=== PATIENT | male | born 1940 | race Caucasian/White ===

== ENCOUNTER → 2023-12-07 13:38 | Outpatient (REF) | payer MEDICARE, SELFPAY | LOC: RAD 13:38 | PROVIDERS: ATTENDING PHYSICIAN Internal Medicine | DX: M54.2 Cervicalgia (principal) | CPT/HCPCS: 72050 ==

== ENCOUNTER 2024-02-08 07:26 | Emergency (ER) | payer MEDICARE, SELFPAY ==
[2024-02-08 07:30] VITALS: BP 127/64
[2024-02-08 07:40] VITALS: BMI 21.8
[2024-02-08 07:42] VITALS: BP 124/64
[2024-02-08 08:00] VITALS: BP 103/51
[2024-02-08 08:15] LABS: ALT (SGPT) 24 U/L (0-50); AST (SGOT) 30 U/L (17-59); Albumin 3.8 g/dl (3.5-5.0); Alkaline Phosphatase 100 U/L (38-126); Blood Urea Nitrogen 30 mg/dl (9-20); Calcium 9.3 mg/dl (8.4-10.2); Carbon Dioxide 27 mmol/L (22-30); Chloride 103 mmol/L (98-107); Estimated Creatinine Clearance 64 ml/min; Glucose 150 mg/dl (70-99); Potassium 4.6 mmol/L (3.5-5.1); Sodium 138 mmol/L (135-145); Total Bilirubin 0.6 mg/dl (0.2-1.3); Total Protein 6.4 g/dl (6.3-8.2); eGFR > 60.00
--- NOTE | 2024-02-08 08:15 | ED.GENMED ---
History of Present Illness
General
Chief Complaint: Fainting/Passed Out
Source: patient
Exam Limitations: none
Time Seen by Provider: 02/08/24 08:07
History of Present Illness
History of Present Illness:
See MDM
Past History
Past History
ED Past Medical History: CAD, Hypercholesterolemia, NIDDM and Other
ED Past Surgical History: Cardiac
Social History
Personal:
Living: with family
Phy Exam
Physical Exam
Physical Exam:
See MDM
Course
Orders/Labs/Results
Orders:
Orders
02/08/24 07:29
EKG [Electrocardiogram (*1)] Urgent
Reason for Study: Syncope
02/08/24 07:30
EKG- Treatment ONCE
02/08/24 07:47
Urinalysis Reflex To Culture Urgent
Date Specimen was Collected: 02/08/24
Time Specimen was Collected: 07:47
02/08/24 07:50
Complete Blood Count/With Diff Urgent
Comprehensive Metabolic Panel Urgent
Troponin I Urgent
Abnormal Lab Results
02/08/24
07:50
RBC 4.58 L 10^6/uL
(4.70-6.10)
MCHC 32.7 L g/dL
(33.0-37.0)
MPV 10.9 H fL
(7.4-10.4)
Absolute Monos (auto) 0.7 H 10^3/uL
(0.1-0.6)
BUN 30 H mg/dl
(9-20)
Glucose 150 H mg/dl
(70-99)
02/08/24 07:50
02/08/24 07:50
Vital Signs
Initial and Last Documented VS:
Initial Vital Signs
BP
127/64
02/08/24 07:30
Last Documented Vital Signs
Temp Pulse Resp BP Pulse Ox
97.7 F 64 15 97/47 93
02/08/24 07:42 02/08/24 09:15 02/08/24 09:15 02/08/24 09:00 02/08/24 09:15
MDM/Problems Addressed
Differential Diagnosis Includes:
HPI and MDM Narrative:
83-year-old male presenting for syncopal event. Patient was sitting on his porch bench and he started to feel weak and tired and seem like he fell asleep. This was witnessed by his . She states he was unconscious for approximately 45 seconds.
There is no shaking episodes or loss of bowel or bladder control. When he woke up, patient states he felt a little shaky but is feeling back to his normal self. Patient is more concerned about being discharged and getting a couple coffee. He
currently denies any chest pain or shortness of breath or palpitations. I had a long discussion that syncope at rest could be cardiac in nature, specifically abnormal heart rhythm or possibly pauses. Patient understands my concern. at
bedside also understands my concern. They are comfortable with discharge with a negative workup going this could be the diagnostic possibility. The indicated that they will follow-up with PCP and cardiology to discuss holter
Physical exam
General: Well appearing and non-toxic. Sitting in bed comfortably
HEENT: protecting airway
Neck: appears supple
CV: No evidence of cyanosis. Regular rate and rhythm
Resp: No accessory muscle use
Abd: Non-distended
Extremities: No deformities. No leg edema
Neuro: alert
Psych: Normal affect
Skin: Intact
Problems Addressed including Acute and Chronic Conditions affecting care:
1. Syncope
Acuity: acute
Prognosis: stable
Details: Given that this occurred at rest, there is a strong concern for cardiogenic syncope. Will continue to monitor heart rhythm on telemetry and will obtain basic blood work
Updates
Throughout his stay in the emergency department, patient remains symptom-free. There was an episode of bigeminy but this does not correlate any symptoms. Case discussed with his veterinary assistant who will expedite follow-up and Holter monitor. Patient
feels comfortable going home
Differential Diagnosis (but not limited to): Cardiac arrhythmia, vasovagal syncope
Testing considered: CT head
Drug therapy (if applicable): OTC meds, please see d/c instruction regarding Rx drugs
Amount and/or Complexity of Data Reviewed
Clinical info obtained from: Patient
External data reviewed: N/A
Labs I independently reviewed (but not limited to): Troponin negative
Radiology: N/A
Pulse Ox: not hypoxic
EKG independently reviewed: Sinus rhythm, normal axis, no STEMI
Magnet Placer: Sinus rhythm
Critical Care: N/A
Risk of Complication:
Social Determinants of health: Good social support
Discussed with other providers: Cardiology
Escalation of Care includes Admit/Obs: After being observed in the Emergency Department, pt stable for discharge.
Occasional wrong word or 'sound a like' substitutions may have occurred due to the inherent limitations of voice recognition software. Read the chart carefully and recognize, using context, where substitutions have occurred.
*Critical Care Note
Total Time (30-74mins, 75-104mins- exclusive of procedures): Not Applicable
ED Attending Note
-
Portions of this chart may have been created with voice recognition software.� Occasional wrong word or��sound alike� substitutions may have occurred due to the inherent limitations of voice recognition software.
Discharge Plan
Departure
Patient Disposition: Home (Routine Discharge)
Date of Disposition: 02/08/24
Time of Disposition: 09:31
Patient with high blood pressure during this ER visit?: No
Discharge Problem:
Syncope
Prescriptions:
No Action
glimepiride 4 MG tablet
8 mg PO DAILY
aspirin 81 MG tablet,delayed release (DR/EC)
81 mg PO DAILY
Farxiga 10 MG tablet
10 mg PO DAILY
atorvastatin 40 MG tablet
40 mg PO QPM
Refresh Classic (PF) 10 DROPS dropperette
2 drp BOTH EYES HS
repaglinide 1 mg Tablet
1 mg PO QPM
Patient Comments:
~50% adherence according to
Rx Instructions:
To be taken before dinner
clopidogrel [Plavix] 75 mg Tablet
75 mg PO DAILY
metoprolol succinate 25 mg Tablet Extended Release 24 Hr
12.5 mg PO HS
metformin 500 mg tablet
1,000 mg PO BID
verapamil 120 mg tablet extended release
120 mg PO QPM
Referrals:
Adrian Keen MD [Family Provider] -
Activity Restrictions/Additional Instructions:
Please return for any worsening symptoms.
You may return at any time if you have further concerns.
Please follow up with your veterinary assistant. They know you are here today and stated that they will expedite follow-up and Holter monitor. If you do not hear from them in the next few days, please give them a call.
Thank you for choosing [facility].
Interventions
Interventions:
*Risk Screen - Suicide Last Done: 02/08/24 07:31
*General Assessment Last Done: 02/08/24 07:31
*Neglect/Abuse Screening Last Done: 02/08/24 07:31
ED- Cardiac Assessment Last Done: 02/08/24 07:40
ED- Neurological Assessment Last Done: 02/08/24 07:40
Discharge Date and Time
Print Language: THAI
[2024-02-08 08:17] LABS: % Basophils 0.6 % (0-2); % Eosinophils 2.8 % (0-6); % Immature Granulocytes 0.4 % (0-0.5); % Lymphocytes 31.2 % (20.5-51.1); % Monocytes 8.1 % (1.7-9.3); % Neutrophils 56.9 % (42.2-75.2); Absolute Basophils 0.1 10^3/uL (0-0.2); Absolute Eosinophils 0.2 10^3/uL (0-0.7); Absolute Lymphocytes 2.6 10^3/uL (1.2-3.4); Absolute Monocytes 0.7 10^3/uL (0.1-0.6); Absolute Neutrophils 4.7 10^3/uL (1.4-6.5); Hematocrit 42.2 % (39.0-52.0); Hemoglobin 13.8 g/dL (13.0-18.0); Mean Corp Hgb Conc. 32.7 g/dL (33.0-37.0); Mean Corpuscular Hgb 30.1 pg (27.0-31.0); Mean Corpuscular Volume 92.1 fL (80.0-94.0); Mean Platelet Volume 10.9 fL (7.4-10.4); Nucleated Red Blood Cells % 0 % (-); Platelet Count 230 10^3/uL (130-400); Red Blood Cell Count 4.58 10^6/uL (4.70-6.10); Red Cell Dist. Width 13.5 % (11.5-14.5); White Blood Cell Count 8.3 10^3/uL (4.8-10.8)
[2024-02-08 08:26] LABS: Troponin I < 0.012 ng/ml
[2024-02-08 09:00] VITALS: BP 97/47
[2024-02-08 09:32] VITALS: BP 102/57
== END 2024-02-08 09:40 | disposition home or self-care (01) ==
LOC: EMR 07:26
PROVIDERS: Emergency Medicine; EMERGENCY PHYSICIAN Student in an Organized Health Care Education/Training Program; FAMILY PHYSICIAN Internal Medicine
DX: R55 Syncope and collapse (principal); I25.10 Atherosclerotic heart disease of native coronary artery without angina pectoris; E78.00 Pure hypercholesterolemia, unspecified; E11.9 Type 2 diabetes mellitus without complications
CPT/HCPCS: 99283; 80053; 84484; 85025; 93005

== ENCOUNTER → 2024-02-23 13:36 | Outpatient (REF) | payer MEDICARE, SELFPAY | LOC: HWRCS 13:36 | PROVIDERS: ATTENDING PHYSICIAN Internal Medicine; FAMILY PHYSICIAN Internal Medicine | DX: I25.10 Atherosclerotic heart disease of native coronary artery without angina pectoris (principal); I34.0 Nonrheumatic mitral (valve) insufficiency; I49.3 Ventricular premature depolarization; R55 Syncope and collapse | CPT/HCPCS: 93306 ==

== ENCOUNTER → 2024-03-14 12:33 | Outpatient (REF) | payer MEDICARE, SELFPAY ==
[2024-03-14 13:13] LABS: % Basophils 0.6 % (0-2); % Eosinophils 1.6 % (0-6); % Immature Granulocytes 0.4 % (0-0.5); % Lymphocytes 32.9 % (20.5-51.1); % Monocytes 8.6 % (1.7-9.3); % Neutrophils 55.9 % (42.2-75.2); Absolute Basophils 0.1 10^3/uL (0-0.2); Absolute Eosinophils 0.1 10^3/uL (0-0.7); Absolute Lymphocytes 2.6 10^3/uL (1.2-3.4); Absolute Monocytes 0.7 10^3/uL (0.1-0.6); Absolute Neutrophils 4.5 10^3/uL (1.4-6.5); Hematocrit 42.4 % (39.0-52.0); Hemoglobin 13.9 g/dL (13.0-18.0); Mean Corp Hgb Conc. 32.8 g/dL (33.0-37.0); Mean Corpuscular Volume 91.6 fL (80.0-94.0); Mean Platelet Volume 10.8 fL (7.4-10.4); Nucleated Red Blood Cells % 0 % (-); Platelet Count 239 10^3/uL (130-400); Red Blood Cell Count 4.63 10^6/uL (4.70-6.10); Red Cell Dist. Width 14.6 % (11.5-14.5)
[2024-03-14 13:44] LABS: ALT (SGPT) 25 U/L (0-50); AST (SGOT) 35 U/L (17-59); Albumin 3.8 g/dl (3.5-5.0); Alkaline Phosphatase 83 U/L (38-126); Blood Urea Nitrogen 29 mg/dl (9-20); Calcium 9.7 mg/dl (8.4-10.2); Carbon Dioxide 28 mmol/L (22-30); Chloride 96 mmol/L (98-107); Glucose 146 mg/dl (70-99); Potassium 5.2 mmol/L (3.5-5.1); Sodium 135 mmol/L (135-145); Total Bilirubin 0.6 mg/dl (0.2-1.3); Total Protein 6.3 g/dl (6.3-8.2); eGFR > 60.00
== END ==
LOC: SDSPAT 12:33
PROVIDERS: ATTENDING PHYSICIAN Internal Medicine Cardiovascular Disease; FAMILY PHYSICIAN Internal Medicine; OTHER PHYSICIAN Internal Medicine
DX: Z01.818 Encounter for other preprocedural examination (principal); I42.9 Cardiomyopathy, unspecified
CPT/HCPCS: 36415; 80053; 85025; 93005

== ENCOUNTER → 2024-03-16 06:25 | Day surgery (SDC) | payer MEDICARE, SELFPAY ==
[2024-03-16] VITALS (15 sets, daily range): BP systolic 89–134; BP diastolic 53–87; BMI 21.7
[2024-03-16 07:07] LABS: Glucose - Point of Care 132 mg/dl (70-99)
[2024-03-16] MEDS: NSS 218 ML IV (07:25)
--- NOTE | 2024-03-16 09:23 | ITS.CL.CATH ---
[facility] - Catheterization
Cardiac Catheterization
Procedure Report:
CARDIAC CATHETERIZATION REPORT
Date of Procedure: 03/16/2024
Referring: Nahun Templeton M.D., Ph.D.
Indication: New cardiomyopathy, unexplained syncope.
PROCEDURE:
1. Right heart catheterization.
2. Left heart catheterization.
3. Coronary angiography.
4. Bypass graft angiography.
ACCESS:
6 [place] left radial artery.
5 [place] right antecubital vein.
CATHETERS:
1. 5 [place] balloon wedge.
2. 5 [place] ANGELES.
3. 5 [place] JL 4.
4. 5 [place] JR4.
5. 5 [place] AL-1.
HEMODYNAMIC DATA
Weight (kg): 72.6
AO (s/d/x mmHg): 106/48/68
LV (s/x mmHg): 109/16 (A wave to 30 mmHg)
PCWP (a/v/x mmHg):
PA (s/d/x mmHg): 41/18/25
RV (s/x mmHg):
RA (a/v/x mmHg): 9
SVC SvO2 (%): 59.3
PA SvO2 (%): 63.8
SaO2 (%): 92.2
Hbg (g/dL): 13.3
CO (L/min): 3.59
CI (L/min/m2): 1.85
TPG (mmHg): 9
PVR (Huang Units): 2.51
SVR (dynes*seconds*cm^-5): 1404
AVO2 Diff (Volume %): 5.14
AV gradient (x, mmHg): None.
AV area (cm2): Normal
LEFT VENTRICULOGRAPHY: Not performed.
CORONARY ANGIOGRAPHY
Dominance: Right.
Left Main: Short, bifurcating vessel. There is left main stenosis that is difficult to discretely identified but catheter dampening with engagement.
LAD: Normal size vessel giving rise to a large diagonal which runs parallel to the true vessel. The mid and distal LAD is a small, diffusely diseased vessel. There is a 90% lesion in the proximal vessel, followed by a 70% lesion in the mid
vessel, proximal to the diagonal. The second diagonal is supplied via a patent FERNÁNDEZ graft.
Ramus: Congenitally absent.
Circumflex: Normal size, nondominant vessel giving rise to 2 obtuse marginals. There is an 80% lesion in the proximal margin of OM1. OM 2 is occluded at its origin but is supplied by collaterals from the second diagonal.
RCA: Normal size, dominant vessel. The RCA is chronically totally occluded in its midportion, immediately after the origin of a large RV marginal branch. The right posterolateral branch and RPDA are supplied by collaterals from the RV marginal
branch which backfills to the level of the crux.
BYPASS GRAFT ANGIOGRAPHY
FERNÁNDEZ to large D2: Normal size graft with end-to-side anastomosis to the large second diagonal supplying the majority of the anterior and anterolateral wall. There is no evidence of stenosis or graft degeneration.
SVG to OM 2: Normal size graft with end-to-side anastomosis to a diffusely diseased second obtuse marginal. There is some graft degeneration in the proximal and midportion somewhat responsive to nitroglycerin. The terminal port gamble artery is
diffusely diseased with essentially trivial outflow.
INTERVENTIONS
None.
Closure Device: Vascular band for the left radial artery, manual pressure for the right antecubital vein.
Radiation dose (mGy): 654.69
DAP (cm2.Gy): 55.3036
Fluoroscopy time (minutes): 6.5
Sedation time (minutes): 22
CONCLUSIONS:
1. Right dominant circulation with left main coronary artery stenosis, 90% lesion in the proximal LAD, 70% lesion in the mid LAD, diffusely diseased mid and distal LAD with a large, parallel second diagonal, and 80% lesion in OM1, flush occluded OM
2 supplied by collaterals from the diagonal and a chronic total occlusion of the mid RCA with right to right collaterals from a large RV marginal status post prior coronary artery bypass grafting (patent FERNNÁDEZ to large D2, patent SVG to diffusely
diseased OM 2 branches with mild graft degeneration of the proximal and midportion somewhat responsive to nitroglycerin).
2. Mildly elevated filling pressures (PCWP = 16 mmHg, LVEDP = 16 mmHg at 72.6 kg) with evidence of diastolic dysfunction (A wave to 30 mmHg), likely appropriate given degree of LV dysfunction.
3. Severe left ventricular dysfunction on echocardiography, LVEF = 20-25%.
RECOMMENDATIONS:
1. Expectant management after cardiac catheterization via left radial/right antecubital approach.
2. Limited weight bearing on the left for one week.
3. Titration of guideline directed medical therapy. Discontinue verapamil. Uptitrate metoprolol and start lisinopril 2.5 mg daily.
4. Aggressive secondary prevention with high-dose, high potency statin.
5. Consideration of primary/secondary preventative therapy with ICD (unclear if syncope was cardiogenic versus dehydration).
Copy to: Nahun Templeton M.D., Ph.D., Kushal Keen M.D.
Guevara Ramon DO, FACC, FACP
== END | disposition home or self-care (01) ==
LOC: CATH 06:25
PROVIDERS: ATTENDING PHYSICIAN Internal Medicine Cardiovascular Disease; FAMILY PHYSICIAN Internal Medicine; OTHER PHYSICIAN Internal Medicine
DX: I25.10 Atherosclerotic heart disease of native coronary artery without angina pectoris (principal); I42.9 Cardiomyopathy, unspecified; I10 Essential (primary) hypertension; E78.5 Hyperlipidemia, unspecified; E11.319 Type 2 diabetes mellitus with unspecified diabetic retinopathy without macular edema; J44.9 Chronic obstructive pulmonary disease, unspecified; K21.9 Gastro-esophageal reflux disease without esophagitis; Z95.1 Presence of aortocoronary bypass graft; Z86.73 Personal history of transient ischemic attack (TIA), and cerebral infarction without residual deficits; Z87.891 Personal history of nicotine dependence; Z79.82 Long term (current) use of aspirin; Z79.84 Long term (current) use of oral hypoglycemic drugs
CPT/HCPCS: C1894; 82962; 93461; Q9967

== ENCOUNTER 2024-03-22 07:55 | Day surgery (SDC) | payer MEDICARE, SELFPAY ==
[2024-03-22] VITALS (14 sets, daily range): BP systolic 92–115; BP diastolic 49–75; BMI 21.5
[2024-03-22 08:36] LABS: Glucose - Point of Care 136 mg/dl (70-99)
--- NOTE | 2024-03-22 09:14 | W.ICD.CONTRA ---
Post ICD/RACK CLEANER-D
-
History of [place]?: No
LV Function
Left ventricular function study result?: Ejection Fraction </= 35%
ACEI/ARB/ARNI
Patient already on ACEI/ARB/ARNI: Yes
Beta-Saji
Patient already on Beta Saji: Yes
[2024-03-22] MEDS: NSS 500 IV (09:32)
--- NOTE | 2024-03-22 12:37 | ITS.CL.ICD ---
Clinical Faculty - ICD
Implantable Cardioverter Defibrillator
Procedure Report:
Dual Chamber Implantable Cardioverter Defibrillator Placement:
Mr. Collier is an 83-year-old male with CAD, ischemic cardiomyopathy with NYHA calss III, NSVT, frequent PVC in bigeminy, HTN, DM, severe PVD, COPD, TIA, with LVEF of 20% and severe CAD nor amenable to intervention, on guideline directed
cardiomyopathy is recommended pacing to suppressed PVCs and bradycardia and is in need for an ICD for NSVT and severe systolic dysfunction.
Indications: sinus bradycardia with severe systolic dysfunction and ventricular tachycardia.
Date of the Procedure:
03/22/2024
Pre-Operative Diagnosis: sinus bradycardia with severe systolic dysfunction and ventricular tachycardia.
Post-Operative Diagnosis: sinus bradycardia with severe systolic dysfunction and ventricular tachycardia.
Procedure Performed: DUAL CHAMBER IMPLANTABLE CARDIOVERTER DEFIBRILLATOR IMPLANTATION
Performing Physician:
oJ Serrano MD
Anesthesia:
See anesthesia report
Detailed Description of the Procedure:
The patient was identified using hospital identification and informed consent obtained for the procedure. The risks were explained including, but not limited to: Bleeding, infection, arrhythmia, stroke, vascular/cardiac/lung puncture, surgery,
pacemaker dependency/device malfunction. All questions were answered.
The patient was brought to the electrophysiology laboratory in stable condition in fasting state. Continuous electrocardiographic and hemodynamic monitoring was initiated. The initial rhythm was sinus with PVCs.
The procedure site was meticulously prepared with surgical scrub and allowed to dry with no pooling. Sterile draping was applied to cover the procedure site. The image intensifier was draped with sterile bag and positioned over the patient.
The right infra-clavicular region was prepped and draped in the usual sterile fashion. Local anesthesia was administered subcutaneously using 1% lidocaine / Bupivacaine. The right cephalic vein cut-down was performed with an incision at the
delto-pectoral groove, and vascular sheaths were introduced for lead access. These were advanced into the right ventricle and the right atrium.
The right ventricular lead was secured in position with an active fixation technique at the apical septal location.
The RA lead was attached in the right atrial appendage with active fixation.
There was excellent sensing, pacing, and impedance from the leads, with no diaphragmatic stimulation at 10 V output.�Bovie cautery, antibiotics, and fluoroscopy were used.
The sheath was withdrawn, and the thresholds remained acceptable. The lead was secured in position at the venous entry site with 2-0 Ethibond. A pocket was fashioned contiguous to the incision. The electrode terminals were connected to the pulse
generator, which was placed into the pocket. The wound was irrigated thoroughly with antibiotic solution and closed in 3 layers using 2-0 VLoc sutures followed by 2 layers of 4-0 V-loc sutures. Steri-Strips and a bandage were applied externally.�
Procedure End:
The procedure was tolerated well. A bandage was applied to the incision area.
Estimated Blood loss:
5 cc
Fluoro time:
2.9min / 8.5 mGy
Specimens Removed:
No cultures and no specimens were obtained. No intraoperative pathology was identified.
Urine output:
None
Packs / Drains/ Tubes:
None
Instrument / Sponge Count Correct:
Yes
Complications of the Procedure:
None
Condition of Patient at Time of Transfer:
Hemodynamically stable with no neurological or vascular compromise.
Device information:�
Generator: [employer]; Model: [id number]; Serial # [id number]�
Atrial Lead: [employer]; Model: 5076-45; Serial # [id number]
Measured data in the right atrium was sensing of 2.2 mV, impedance of 560 ohms and threshold of 0.8 V at 0.4ms�
RV Lead: Medtronic; Model: 6935M-55; Serial # [id number]
Measured data in the RV lead was sensing of 8.0 mV, impedance of 520 ohms and threshold of 0.75 V at 0.4ms�
PROGRAMMING PARAMETERS:�
Homer parameter settings were AAIR <=>DDDR 60-130 bpm. �
����������� Mode switch: On
����������� Paced AV delay: 130 ms
����������� Sensed AV delay: 100 ms
����������� Rate Adaptive A-V Interval: Off
Output parameters:
����������������������� Amplitude (V)������������� Pulse Width (ms)������� Sensitivity (mV)
����������� RA: ����� 3.5 ����������������� ����������� 0.4������������������ ����������� 0.3
����������� RV:������ 3.5������������������ ����������� 0.4������������������ ����������� 0.3
Tachy parameter settings:
����������� SVT discrimination: On
����������� AF/AFl: On
����������� SVT limit: 260 msec
����������� VT zone:
����������������������� Slow VT: 150 - 188 bpm --> Monitor
����������������������� Fast VT/VF: > 188 bpm --> Shock x6 (ATP before and during)
�����������
Summary:
Successful implantation of MRI compatible dual chamber Medtronic implantable Cardioverter Defibrillator.�
Results/Recommendations:
-Please follow up CXR�
1. Please provide patient with adequate pain control�
Instructions to be given to patient:�
- Please follow up with [facility] at [address] [place] [address] ([phone]) to get your wound checked within 14 days of your discharge.
- Do not soak incision site until after it is evaluated at cardiology clinic. OK to showers followed by dab dry the area. No baths or swimming until then. Sponge baths are OK.�
- Allow 'steri strips' to fall off on their own�
- Do not lift right elbow above shoulder, particularly with sudden jerking movements, for 1 month�
- Do not lift anything weighing more than 5 pounds with the right arm for 1 month�
- If you notice any fevers, shortness of breath, lightheadedness, chest pain, or worsening swelling in the wound site, please contact the arrhythmia clinic, contact your lead web application developer, or present to the hospital for evaluation.�
Jo Serrano MD
Electrophysiology
[2024-03-22 13:19] LABS: Glucose - Point of Care 140 mg/dl (70-99)
--- NOTE | 2024-03-22 15:58 | PTCARENOTE ---
received patient from laborer adjustable steel joist, RCW Acuseal, immobilizer in place. right hand contracted, not new. monitor shows Apaced with PVC's, VSS. patient placed on BSC with assist x2 to void. oriented to room and surroundings. at bedside.
--- NOTE | 2024-03-22 16:24 | PTCARENOTE ---
when assessing patient, patient has right great toe skin grafting that he and his refused me to take off dressing. patient is under the care at [facility].
--- NOTE | 2024-03-22 17:16 | PTCARENOTE ---
patient voided 100cc of yellow urine on BSC, patient refuses to get bladder scanned.
[2024-03-22] MEDS: ZESTRIL 2.5 MG PO (17:51)
[2024-03-22] MEDS: PRANDIN 2 MG PO (17:53)
[2024-03-22] MEDS: GLUCOPHAGE 1000 MG PO (17:54)
[2024-03-22] MEDS: FLUSH (NSS) 1 FLUSH IV (17:54)
[2024-03-22] MEDS: CRESTOR 40 MG PO (17:54)
[2024-03-22] MEDS: ANCEF 5 IV (17:55)
--- NOTE | 2024-03-22 20:34 | PTCARENOTE ---
Pt. seen and assessed in room. Pt. AOx3, VS WNL. Tele reading A Pacing with occasional PVCs. ICD at R chest wall. Dressing c/d/i. No complaints of pain at this time. Continuing to monitor the pt at this time.
[2024-03-22] MEDS: TOPROL XL 50 MG PO (21:05)
[2024-03-22 22:46] LABS: Glucose - Point of Care 193 mg/dl (70-99)
[2024-03-22] MEDS: TYLENOL 650 MG PO (22:46)
[2024-03-23 01:06] VITALS: BP 104/59
[2024-03-23] MEDS: ANCEF 5 IV (01:07)
[2024-03-23 04:38] VITALS: BP 96/68
[2024-03-23 04:59] VITALS: BMI 21.4
[2024-03-23 05:00] LABS: Hematocrit 41.3 % (39.0-52.0); Hemoglobin 14.1 g/dL (13.0-18.0); Mean Corp Hgb Conc. 34.1 g/dL (33.0-37.0); Mean Corpuscular Hgb 31.3 pg (27.0-31.0); Mean Corpuscular Volume 91.6 fL (80.0-94.0); Mean Platelet Volume 10.7 fL (7.4-10.4); Platelet Count 205 10^3/uL (130-400); Red Blood Cell Count 4.51 10^6/uL (4.70-6.10); Red Cell Dist. Width 14.3 % (11.5-14.5); White Blood Cell Count 11.2 10^3/uL (4.8-10.8)
[2024-03-23 05:32] LABS: Blood Urea Nitrogen 37 mg/dl (9-20); Calcium 9.4 mg/dl (8.4-10.2); Carbon Dioxide 24 mmol/L (22-30); Chloride 103 mmol/L (98-107); Estimated Creatinine Clearance 57 ml/min; Glucose 129 mg/dl (70-99); Potassium 5.6 mmol/L (3.5-5.1); Sodium 139 mmol/L (135-145); eGFR > 60.00
--- NOTE | 2024-03-23 05:53 | W.PN.UPDATE ---
Update Note
Progress Note Update
-K 5.6 this am (5.2 preop) - will hold Lisinopril. HCO3 is normal 24, Cr stable 1.0
-Re-check K 5.5. Ordered 25 grams D50 and 10 units regular insulin. BMP ordered for 9 am
-reviewed with Dr. Rothman
[2024-03-23 06:24] LABS: Blood Urea Nitrogen 37 mg/dl (9-20); Calcium 9.2 mg/dl (8.4-10.2); Carbon Dioxide 25 mmol/L (22-30); Chloride 103 mmol/L (98-107); Estimated Creatinine Clearance 57 ml/min; Glucose 137 mg/dl (70-99); Potassium 5.5 mmol/L (3.5-5.1); Sodium 135 mmol/L (135-145); eGFR > 60.00
[2024-03-23 06:51] VITALS: BP 108/62
[2024-03-23 06:56] LABS: Glucose - Point of Care 149 mg/dl (70-99)
[2024-03-23] MEDS: DEXTROSE 50% SYRINGE 25 GRAMS IV (07:29)
[2024-03-23] MEDS: DITROPAN 5 MG PO (07:33)
[2024-03-23] MEDS: ASPIR LOW (ENTERIC COATED) 81 MG PO (07:33)
[2024-03-23] MEDS: AMARYL 8 MG PO (07:33)
[2024-03-23] MEDS: GLUCOPHAGE 1000 MG PO (07:33)
[2024-03-23] MEDS: FLUSH (NSS) 1 FLUSH IV (07:33)
[2024-03-23] MEDS: FARXIGA 10 MG PO (07:33)
--- NOTE | 2024-03-23 07:37 | PTCARENOTE ---
K 5.6, labs repeated K 5.5, Jessica Rodrigues CVPA ordered dextrose 25gm IV and regular insulin, patient refused the reg. insulin and no more blood draws.
[2024-03-23 07:55] LABS: Glycohemoglobin (HgbA1c) 7.3 % (4.0-5.6)
[2024-03-23] MEDS: SPIRIVA RESPIMAT 2.5 MCG 2 PUFF INH (08:22)
--- NOTE | 2024-03-23 08:31 | W.PN.CD ---
Today's Communication / Plan
-
-Discharge home
-Decrease number of bananas per day.
-Labs check in 1 week for hyperkalemia.
Impression / Plan
-
83-year-old gentleman with coronary disease, ischemic cardiomyopathy, NYHA class III, nonsustained ventricular tachycardia with long VT episodes, frequent PVCs in bigeminy, hypertension, diabetes, severe COPD, severe coronary artery disease, COPD,
TIA, LVEF of 20% with severe coronary disease, not amenable to intervention, on adequate guideline directed medical cardiomyopathy
Ventricular tachycardia/frequent PVCs
� Patient has ischemic cardiomyopathy with LVEF of 20% and frequent nonsustained VT/long episodes of VT and frequent PVC with PVC burden about 40%.
�Patient is status post dual-chamber ICD on 03/22/2024�Medtronic MRI compatible.
�Uptitrating beta-blockers. ICD is switched with atrial preferred pacing with an attempt to suppress PVCs. Currently still in a pattern of bigeminy
Status post dual-chamber ICD
� ICD in situ right-sided implant with right arm fractures and left hand dominance
� Currently atrially paced rhythm with atrial preferred pacing algorithm turned on.
� Atrial peripheral pacing is attempted to suppress the PVCs. It appeared to have reduced the PVC burden but still is quite frequent.
� Device pocket is inspected without any signs of fluctuation, healing normally. No signs of bleeding.
� Chest x-ray is normal and device is appropriately working.
� Patient is stable for discharge from cardiac standpoint.
Ischemic cardiomyopathy
� NYHA class III. Currently appears to be well compensated
� LVEF is 20%.
� On aspirin, Farxiga, lisinopril, metoprolol, and rosuvastatin.
- Not on spironolactone due to hyperkalemia.
� Status post dual-chamber ICD. Patient's QRS duration is 110 ms with normal conduction with normally conducted QRS complexes. Patient does have frequent PVCs.
� Continue and uptitrate beta-blockers as tolerated.
Physical Exam
Vital Signs/Labs
Vital Signs
Temp Pulse Resp BP Pulse Ox
97.3 F 88 16 96/68 94
03/23/24 06:58 03/23/24 08:30 03/23/24 08:30 03/23/24 04:38 03/23/24 06:58
03/22/24 03/23/24 03/24/24
06:59 06:59 06:59
Actual Weight 71.5 kg
03/23/24 04:45
Magnesium 2.0 mg/dl (1.6-2.3) 03/23/24 04:45
Physical Exam
Constitutional: No acute distress and Comfortable
EENT: Anicteric and Moist mucous membranes
Cardiovascular: Pedal edema is absent, JVD pressure is normal, Rhythm/rate is irregular (Frequent PVCs) and Systolic murmur present
Respiratory: Respiratory effort normal, Lungs clear to auscul. and Wheeze Absent
GI: Soft, Distention absent, Non tender and Normal bowel sounds
Neuro/Psych: Alert, Oriented and AO x 3
Other: Cardiac Device Site
Data Reviewed
-
Date of Service: March 23, 2024
Medical Decision Making: Reviewed Test Results, Independent Historian Assessment, Test Interpretation and Review of Case with other Provider
EKG: Tracing Personally Visualized and interpreted
Echo: Report Reviewed by me
Labs: Labs Reviewed by me
Old Records: Reviewed
--- NOTE | 2024-03-23 08:48 | PTCARENOTE ---
received patient this am on BSC, voided 400cc of yellow urine. ambulated back to bed with assist of 1. RCW Acuseal intact, no ecchymosis, no hematoma, no pain at site. immobilizer remains on. monitor shows Apaced, VSS.
--- NOTE | 2024-03-23 09:14 | CM ---
Reviewed chart. Met with Mr. Collier to review discharge plans. He states prior to admission he resides with his spouse in a rancher-style single level home with one step to enter. He states prior to admission he ambulates with a rolling walker.
He has a rolling walker, rollator and single point cane. He states he has a prescription plan and uses [facility]. The discharge plan is to return home with his spouse when medically stable.
--- NOTE | 2024-03-23 10:14 | PTCARENOTE ---
D/C instructions given to patient and , both verbalizes understanding. INT D/C'd, telemetry d/C'd, personal belongings packed and sent home with patient. D/C to home via wc accompanied by staff.
--- NOTE | 2024-03-23 10:33 | W.DS.TRANS ---
DC Summary - Conservation Technician
-
Discharge Instructions:
Discharge Diagnosis/Procedures ICD implantation
Diet Low Cholesterol,2 Gram Sodium,Diabetic, Carb
Controlled
Driving Restrictions No driving for 1 week
Bathing Restrictions OK to Shower
Blood Work BMP in 1 week- to check potassium level- results
to Dr. Templeton
Specialty Instructions Weigh Daily
Instructions:
Stand-Alone Forms: DC Inst - Implanted Device
Changes to Home Medications: Yes
Discharge Medications:
DC Medications w/original date entered in [facility]
glimepiride 4 mg tablet 8 mg PO DAILY Diabetes 10/10/09
aspirin 81 mg tablet,delayed release 81 mg PO DAILY Blood clot prevention/tx 04/22/11
dapagliflozin propanediol 10 mg tablet (Farxiga) 10 mg PO DAILY Diabetes 06/07/18
polyvinyl alcohol-povidone (PF) 1.4 %-0.6 % eye drops in a dropperette (Refresh Classic (PF)) 1 drp RIGHT EYE HS Eye condition 01/30/21
repaglinide 1 mg tablet 2 mg PO QPM Diabetes 04/29/22
metformin 500 mg tablet 1,000 mg PO BID Diabetes 05/05/22
albuterol sulfate 90 mcg/actuation aerosol inhaler 1 inh inhalation PRN PRN SOB 03/10/24
omeprazole 20 mg tablet,delayed release 20 mg PO PRN PRN GERD 03/10/24
oxybutynin chloride 5 mg tablet 5 mg PO DAILY 03/10/24
umeclidinium 62.5 mcg/actuation blister powder for inhalation (Incruse Ellipta) 1 inh inhalation DAILY 03/10/24
Tylenol 8 Hour 1,000 mg PO DAILY PRN rt eye pain 03/22/24
lisinopril 2.5 mg tablet 2.5 mg PO QPM #90 tabs 03/23/24
metoprolol succinate 50 mg tablet,extended release 24 hr 50 mg PO QPM #90 tabs 03/23/24
rosuvastatin 40 mg tablet 40 mg PO QPM #0 tabs 03/23/24
Home Medication Changes
DOSE INCREASE: metoprolol
Pending Results: No
== END 2024-03-23 11:29 | disposition home or self-care (01) ==
LOC: CATH 07:55
PROVIDERS: Nurse Practitioner Adult Health; Physician Assistant Medical; ATTENDING PHYSICIAN Internal Medicine Cardiovascular Disease; FAMILY PHYSICIAN Internal Medicine
DX: I11.0 Hypertensive heart disease with heart failure (principal); I50.22 Chronic systolic (congestive) heart failure; I25.5 Ischemic cardiomyopathy; I47.20 Ventricular tachycardia, unspecified; I25.10 Atherosclerotic heart disease of native coronary artery without angina pectoris; E11.9 Type 2 diabetes mellitus without complications; J44.9 Chronic obstructive pulmonary disease, unspecified; K21.9 Gastro-esophageal reflux disease without esophagitis; Z87.891 Personal history of nicotine dependence; Z95.1 Presence of aortocoronary bypass graft; Z79.84 Long term (current) use of oral hypoglycemic drugs; Z79.82 Long term (current) use of aspirin
CPT/HCPCS: 33249; C1892; 71045; 80048; 82962; 83036; 83735; 85027; 93005; 94640; C1721; C1777; C1898

== ENCOUNTER → 2024-04-18 13:08 | Outpatient (REF) | payer MEDICARE, SELFPAY | LOC: RAD 13:08 | PROVIDERS: ATTENDING PHYSICIAN Surgery Vascular Surgery; FAMILY PHYSICIAN Internal Medicine | DX: I65.23 Occlusion and stenosis of bilateral carotid arteries (principal); I73.9 Peripheral vascular disease, unspecified | CPT/HCPCS: 93880; 93922; 93925 ==

== ENCOUNTER 2024-04-23 16:26 | Inpatient (IN) | payer MEDICARE, SELFPAY ==
[2024-04-23] VITALS (7 sets, daily range): BP systolic 93–105; BP diastolic 44–52; BMI 21.5
[2024-04-23 14:52] LABS: % Basophils 0.5 % (0-2); % Eosinophils 1.5 % (0-6); % Immature Granulocytes 0.2 % (0-0.5); % Lymphocytes 19.6 % (20.5-51.1); % Monocytes 6.2 % (1.7-9.3); Absolute Eosinophils 0.1 10^3/uL (0-0.7); Absolute Lymphocytes 1.6 10^3/uL (1.2-3.4); Absolute Monocytes 0.5 10^3/uL (0.1-0.6); Absolute Neutrophils 5.9 10^3/uL (1.4-6.5); Hematocrit 39.5 % (39.0-52.0); Hemoglobin 13.1 g/dL (13.0-18.0); Mean Corp Hgb Conc. 33.2 g/dL (33.0-37.0); Mean Corpuscular Volume 90.4 fL (80.0-94.0); Mean Platelet Volume 10.8 fL (7.4-10.4); Nucleated Red Blood Cells % 0 % (-); Platelet Count 191 10^3/uL (130-400); Red Blood Cell Count 4.37 10^6/uL (4.70-6.10); Red Cell Dist. Width 15.6 % (11.5-14.5); White Blood Cell Count 8.1 10^3/uL (4.8-10.8)
[2024-04-23 15:13] LABS: ALT (SGPT) 127 U/L (0-50); AST (SGOT) 136 U/L (17-59); Albumin 3.4 g/dl (3.5-5.0); Alkaline Phosphatase 141 U/L (38-126); Blood Urea Nitrogen 32 mg/dl (9-20); Calcium 8.6 mg/dl (8.4-10.2); Carbon Dioxide 24 mmol/L (22-30); Chloride 103 mmol/L (98-107); Glucose 165 mg/dl (70-99); Potassium 4.3 mmol/L (3.5-5.1); Sodium 139 mmol/L (135-145); Total Bilirubin 0.5 mg/dl (0.2-1.3); Total Protein 5.9 g/dl (6.3-8.2); eGFR > 60.00
[2024-04-23 15:17] LABS: Troponin I 0.012 ng/ml
--- NOTE | 2024-04-23 15:20 | EDRN ---
Dr. Huston in to see pt.
--- NOTE | 2024-04-23 15:21 | EDRN ---
Dr. Huston just informed this RN that pt at time of fainting had some VT.
--- NOTE | 2024-04-23 15:24 | ED.GENMED ---
History of Present Illness
General
Chief Complaint: Fainting/Passed Out
Time Seen by Provider: 04/23/24 15:16
History of Present Illness
History of Present Illness:
Patient is a 83-year-old male with history of ischemic cardiopathy, CHF with EF 20 to 25%, V. tach with ICD placement, COPD presenting to the emergency department after syncopal event. Per chart review patient was admitted at the end of February for
V. tach and had an ICD placed at the end of February. He states that he was on metoprolol and amiodarone however they recently decreased his amiodarone and metoprolol this past week. Today he was feeling well. He was out to lunch with his friends
where he had a syncopal event. was there who stated that he was sitting the entire time. Patient states that it felt like a dream. He did have 1 episode of emesis afterwards. No diarrhea. No abdominal pain. No chest pain or shortness of
breath. He does feel well. He has not received any ICD shocks.
Past History
Past History
ED Past Medical History: CAD, Hypercholesterolemia, NIDDM and Other
ED Past Surgical History: Cardiac
Social History
Personal:
Living: with family
Phy Exam
Physical Exam
Physical Exam:
GENERAL: in no acute distress
HEENT: normocephalic, extraocular movements intact, moist oral mucosa
NECK: normal inspection
RESPIRATORY: no respiratory distress, clear to auscultation bilaterally
CARDIOVASCULAR: regular rate and rhythm, ICD site over the right chest without erythema or tenderness
ABDOMEN/: soft, non-distended, non-tender to palpation, no rebound or guarding
EXTREMITIES: non-tender, no edema/swelling
NEUROLOGIC: awake and alert, moves all extremities
SKIN: warm
Course
Orders/Labs/Results
Orders:
Orders
04/23/24 14:28
Electrocardiogram (*1) Urgent
Reason for Study: Syncope
EKG- Treatment ONCE
04/23/24 14:42
Complete Blood Count/With Diff Urgent
Comprehensive Metabolic Panel Urgent
Magnesium Urgent
Comment: ADDON
Troponin I Urgent
04/23/24 14:44
TSH Reflex To Free T4 Routine
04/23/24 15:24
Amiodarone [Cordarone] 150 mg Dextrose 5%/Water 100 ml [D5w] 100 ml IV NOW
04/23/24 15:25
Add On- LAB Stat
Tests Added?: magnesium
04/23/24 15:32
CR Chest Portable - 1 View Urgent
Comment:
Reason For Exam: syncope
Reason Study Needs to be Portable: Patient Unstable
04/23/24 16:08
Admit/Transfer Patient As Directed
Co-Sign Provider:
Level of Care: Inpatient admission
Assign to:: IVU
Physician / Group: Eduard
Diagnosis: VT, Syncope
Reason for Hospitalization: VT, Syncope
Expected length of stay greater than two midnights?: Yes
ELOS- Estimated Length of Stay in days: 3
I certify the patient meets the requirements for IP care: Yes
PRN Pain Medication Management As Directed
May give lesser potent ordered pain med per pt: Yes
preference::
Protocol:: Medication orders for pain may be administered in a
manner that supports deferring to patient preference
when the pt is:
- Requesting an ordered lesser potent pain medication.
Least to most potent pain medications are defined
as: acetaminophen < NSAID < tramadol < opioids
(morphine, oxycodone, hydromorphone).
- Requesting a lesser dose of the same medication IF
ORDERED.
- Requesting a less intrusive route of administration
if both routes are prescribed by the provider (PO <
IV).
04/23/24 16:10
Code Status As Directed
Resuscitation Status: Full Code
04/23/24 16:30
Amiodarone [Cordarone] 900 mg DEXTROSE 5% PVC-free BAG [D5W PVC-free BAG] 500 ml IV PER PROTOCOL
Initial Dose in mg/min:: 1
Duration of initial dose (hours):: 6
Subsequent dose in mg/min:: 0.5
Duration of subsequent dose (hours):: 18
Maximum dose in mg/min:: 1
Hold and notify provider if:: Heart rate < 60 BPM or SBP < 90 mmHg or MAP < 60 mmHg
04/23/24 17:34
Acetaminophen [Tylenol] 650 mg PO Q4HPRN PRN
Dextrose 50%-Water [Dextrose 50% Syringe] 12.5 grams IV [id number] PRN
Glucagon [GlucaGen] 1 mg IM PRN PRN
Insulin Aspart Corrective Low [Novolog Flexpen-Low Resistance] See Protocol SC AC
04/23/24 17:34
CARDIOLOGY CONSULT Routine
Consulting Provider: Jo Serrano
Was physician already notified: Yes
Reason for consult: VT, Syncope
WOUND/OSTOMY CONSULT Routine
Reason for Consult: R Foot Wound
Activity As Directed
Activity Level: Ambulate
With Assistance
Bedside Glucose Monitoring As Directed
Frequency: AC&HS
Additional Instructions:: Change to q6h if pt on TPN, tube feeding or not eating
Bladder Scan As Directed
Follow Bladder Retention/Intermittent Cath Algorithm?: Yes
PRN if no void in __ hours: 6
Frequency: Per Retention Algorithm
If Bladder Scan Result >: 400
then:: Straight cath
EKG with chest pain [ECG as needed] As Directed
ECG as needed for:: Chest Pain
I/O [Intake/ Output] As Directed
Frequency: Per unit guidelines
Orthostatic Vital Signs As Directed
Orthostatic VS Frequency: BID
Straight Cath As Directed
Frequency: Per Retention Algorithm
Additional Instructions: straight cath as needed per acute urinary retention algorithm for 24 hrs
Additional Instructions: for bladder scan greater than 400 mL
Vital Signs As Directed
Frequency: Per unit guidelines
Weight As Directed
Frequency: Daily
Oxygen Therapy [O2 Therapy] [RESP] Routine
Titrate/Wean O2 to maintain O2 sat greater than (%): 94
Ot Eval And Treat Routine
PT Consult [Pt Eval And Treat] Routine
Activity Level: Ambulate
With Assistance
DX Deep Vein Thrombosis Video Routine
04/23/24 18:00
Metoprolol Xl [Toprol Xl] 25 mg PO QPM
Rosuvastatin Calcium [Crestor] 40 mg PO QPM
04/23/24 23:34
Troponin I Q6H
04/24/24 05:34
Troponin I Q6H
04/24/24 06:00
EKG [Electrocardiogram (*1)] IN AM
Reason for Study: Chest Pain
2000 calorie (17 carb) Diabetic
At Your Request: Limited Participation
Basic Metabolic Panel IN AM
Complete Blood Count/No Diff IN AM
Glycohemoglobin (HgbA1c) IN AM
04/24/24 08:00
Aspirin Low Dose EC [Aspir Low (Enteric Coated)] 81 mg PO DAILY
Verapamil Extended Release [Calan Extended Release] 120 mg PO DAILY
umeclidinium [Incruse Ellipta] 1 inh INH R DAILY
Abnormal Lab Results
04/23/24
14:42
RBC 4.37 L 10^6/uL
(4.70-6.10)
RDW 15.6 H %
(11.5-14.5)
MPV 10.8 H fL
(7.4-10.4)
Lymphocytes % 19.6 L %
(20.5-51.1)
BUN 32 H mg/dl
(9-20)
Glucose 165 H mg/dl
(70-99)
AST 136 H U/L
(17-59)
ALT 127 H U/L
(0-50)
Alkaline Phosphatase 141 H U/L
(38-126)
Total Protein 5.9 L g/dl
(6.3-8.2)
Albumin 3.4 L g/dl
(3.5-5.0)
04/23/24 14:42
04/23/24 14:42
Vital Signs
Initial and Last Documented VS:
Initial Vital Signs
Temp Pulse Resp BP Pulse Ox
98.1 F 70 18 105/49 96
04/23/24 14:38 04/23/24 14:38 04/23/24 14:38 04/23/24 14:38 04/23/24 14:38
Last Documented Vital Signs
Temp Pulse Resp BP Pulse Ox
97.5 F 66 18 93/44 94
04/23/24 18:58 04/23/24 21:30 04/23/24 18:58 04/23/24 19:38 04/23/24 18:58
MDM/Problems Addressed
Differential Diagnosis Includes:
Patient is a 83-year-old male with history of ischemic cardiomyopathy, HFrEF, V. tach, recent ICD placement, COPD, CAD 9 to the emergency department after syncopal event. Vitals here notable for heart rate in the 80s. Exam is otherwise reassuring.
Concern for cardiogenic cause of syncope. His pacemaker was interrogated. I did receive a critical call from [employer] stating that patient had a sustained episode of V. tach that did not trigger the threshold for the ICD shock. Will place pads
on patient. Will check his electrolytes including magnesium. Blood work obtained prior to evaluation is unremarkable. EKG per my interpretation is a atrial paced rhythm that does appear similar to prior. I did discuss with on-call cardiology who
is in agreement with 150 mg of amiodarone bolus as well as a drip for 24 hours with transition to PO amio afterwards. Plan for echo and cath on Thursday. Will also obtain a portable chest x-ray.
*Critical Care Note
Total Time (30-74mins, 75-104mins- exclusive of procedures): Not Applicable
Update Note
Update Note:
Discussed with hospitalist. Patient pending chest x-ray and magnesium level at this time.
ED Attending Note
-
Portions of this chart may have been created with voice recognition software.� Occasional wrong word or��sound alike� substitutions may have occurred due to the inherent limitations of voice recognition software.
Discharge Plan
Departure
Patient Disposition: Admit
Date of Disposition: 04/23/24
Time of Disposition: 15:34
Presentation/result/management discussed w/ accepting MD/DO: Hospitalist
Discharge Problem:
Syncope
Interventions
Interventions:
*Risk Screen - Suicide Last Done: 04/23/24 15:33
*General Assessment Last Done: 04/23/24 15:33
*Neglect/Abuse Screening Last Done: 04/23/24 15:33
ED- Fall Risk Assessment Last Done: 04/23/24 15:33
*ED COVID-19 Vaccine History Last Done: 04/23/24 15:32
*Nursing Disposition Last Done: 04/23/24 17:40
ED- Cardiac Assessment Last Done: 04/23/24 15:37
ED- Neurological Assessment Last Done: 04/23/24 15:37
Discharge Date and Time
Discharge Date/Time: 04/23/24 17:40
--- NOTE | 2024-04-23 15:31 | EDRN ---
Pt on defibrillator pads at this time. Pharmacy called for amiodarone bolus at this time.
--- NOTE | 2024-04-23 15:35 | EDRN ---
Pt arrives post syncopal episode at yue 13:00 after lunch. Post syncopal episode pt had nausea and vomiting. Pt arrived to ER in ambulance and has [facility] IV. Pt had medtronic interrogation at triage which showed at time of syncope,, VT.
[2024-04-23] MEDS: CORDARONE 103 MG IV (15:45)
--- NOTE | 2024-04-23 15:45 | EDRN ---
Spouse adds that pt has been increasingly weak and fatigued at home and is to start PT at home this weak to increase his strength. Spouse states that his weakness and fatigue has been increasing since the AICD was placed 4 weeks ago. AICD in R upper
chest.
--- NOTE | 2024-04-23 16:13 | EDRN ---
Portable CXR done at this time.
--- NOTE | 2024-04-23 16:14 | HPS.HSE ---
Family Physician
-
Family Physician: Kushal Keen
Chief Complaint
-
Syncope
History of Present Illness
Patient is an 83y M with PMH significant for ASCVD, DM-II and SVT / VT s/p recent AICD placement who presents to ED complaining of syncopal episode. History obtained from patient and his at the bedside. Patient states that he was feeling
well today and had just eaten lunch when he suddenly lost consciousness. states that he was unresponsive for about 30 seconds - after which he was somewhat confused / 'out of it'. Patient then developed N/V with multiple episodes of
non-bloody emesis. EMS was called and patient was brought to the ED for further evaluation and treatment.
Here in the ED he states that he is feeling much better. He is not currently nauseated. No chest pain, palpitations, lightheadedness or dizziness.
Device was interrogated in the ED and reportedly showed VT episode without AICD firing.
Patient was seen most recently at for AICD placement on 03/12. He had cath prior to this (03/16) showing patent grafts and collateral circulation.
Medical History
Past Medical History
Past Medical History: Reports Other
Additional Past Medical History:
ASCVD (CAD, Carotid Disease, PAD)
SVT / VT s/p AICD Placement
DM-II
COPD
Cervical / Lumbar DDD
Past Surgical History: Reports Other
Additional Past Surgical History:
Cervical / Lumbar Surgeries (remote)
BiV AICD Placement (03/12/24)
CABG x 2
Left fem-peroneal bypass
Left SFA Stent
Right CEA
Left Carotid Stent
T&A
Melanoma Excision
Bilateral Hand Surgeries
Social History
Tobacco: Former Smoker (Quit smoking 40 years ago. Approx 30 pack years total use.)
Alcohol: Former (No alcohol in 35 years.)
Drug: None
Personal:
Living: With Family
Family History
Family History: Not pertinent
Allergies / Home Medications
Allergies reflects when Allergies were last updated in [facility].
Home Medications with original date entered in [facility]
Allergy/Medication List:
Allergies
Allergy/AdvReac Type Severity Reaction Status Date / Time
Penicillins Allergy leg cramps Verified 03/22/24 08:52
as child-
pt denies
at this
time
Home Medications
glimepiride 4 mg tablet 4 mg PO DAILY Diabetes 10/10/09
aspirin 81 mg tablet,delayed release 81 mg PO DAILY Blood clot prevention/tx 04/22/11
dapagliflozin propanediol 10 mg tablet (Farxiga) 10 mg PO DAILY Diabetes 06/07/18
polyvinyl alcohol-povidone (PF) 1.4 %-0.6 % eye drops in a dropperette (Refresh Classic (PF)) 1 drp RIGHT EYE HS Eye condition 01/30/21
metformin 500 mg tablet 1,000 mg PO BID Diabetes 05/05/22
albuterol sulfate 90 mcg/actuation aerosol inhaler 1 inh inhalation R Q6HPRN PRN SOB 03/10/24
omeprazole 20 mg tablet,delayed release 20 mg PO Q48H 03/10/24
umeclidinium 62.5 mcg/actuation blister powder for inhalation (Incruse Ellipta) 1 inh inhalation R DAILY 03/10/24
rosuvastatin 40 mg tablet 40 mg PO QPM #0 tabs 03/23/24
acetaminophen 500 mg tablet (Tylenol Extra Strength) 1,000 mg PO Q6HPRN PRN mild pain 04/23/24
amiodarone 200 mg tablet 200 mg PO QPM 04/23/24
metoprolol succinate 25 mg tablet,extended release 24 hr 25 mg PO QPM 04/23/24
oxybutynin chloride 5 mg tablet,extended release 24 hr 5 mg PO DAILY 04/23/24
repaglinide 2 mg tablet 2 mg PO QPM 04/23/24
verapamil 120 mg tablet,extended release 120 mg PO DAILY 04/23/24
Review of Systems
-
History Source: Patient
A 12 point ROS was completed and negative except as noted: Yes
Constitutional: Reports Fatigue; Denies Fever or Chills
Respiratory: Denies Cough or Trouble Breathing
Cardiac: Reports Syncope; Denies Chest Pain or Palpitations
Abdomen/GI: Reports Nausea and Vomiting; Denies Abdominal Pain or Diarrhea
: Denies Dysuria, Frequency or Flank Pain
Musculoskeletal: Denies Joint Pain or Edema
Neurological: Denies Dizzy or Headache
Psych: Denies Depression or Anxiety
Physical Exam
Vital Signs
Vital Signs
Temp Pulse Resp BP Pulse Ox
98.1 F 73 14 96/51 96
04/23/24 14:38 04/23/24 15:30 04/23/24 15:30 04/23/24 15:19 04/23/24 14:38
Physical Exam
General: Other (83y M in no acute distress.)
HEENT: Moist mucous membranes and PERRLA
Respiratory: Clear; No Wheezes, Rales or Rhonchi
Cardiac: S1/S2 and Regular Rhythm; No Murmur
GI: Soft, Non Tender, Non Distended and Normal Bowel Sounds
Musculoskeletal: No Clubbing, No Cyanosis and Other (1+ pitting edema b/l ankles. Wound R heel - chronic / unchanged per patient.)
Neuro: AO x 3 and Nonfocal/grossly intact
Psych: No Anxious or Depressed
Laboratory Results
-
04/23/24 14:42
04/23/24 14:42
Laboratory Results
Total Bilirubin 0.5 mg/dl (0.2-1.3) 04/23/24 14:42
AST 136 U/L (17-59) H 04/23/24 14:42
ALT 127 U/L (0-50) H 04/23/24 14:42
Alkaline Phosphatase 141 U/L (38-126) H 04/23/24 14:42
Troponin I 0.012 ng/ml 04/23/24 14:42
Impression/Plan
-
A/P: Patient is an 83y M with PMH significant for ASCVD, SVT / VT and recent AICD placement who presents to ED for evaluation s/p syncopal episode.
Ventricular Tachycardia
Syncope secondary to the above
- Admit for further evaluation and treatment.
- Amio bolus started in the ED - gtt x 24 hours and then resume PO.
- Cardiology / EP evaluation.
- Monitor on telemetry.
- Continue other CV medications for now.
- Follow for any new / recurrent symptoms.
- No chest pain, dyspnea, etc.
ASCVD
Non-Healing R Foot Wound
- CAD, PAD, Carotid disease - extensive ASCVD history.
- Continue current med regimen including ASA, statin.
- Wound care for non-healing R foot wound.
- Tentative plan for RLE re-vascularization procedure per patient.
Chronic HFrEF
- Stable. Trace edema but no other evidence of volume overload.
- Not maintained on chronic diuretic regimen (Farxiga).
- Follow I/Os, daily weights, etc.
DM-II
- Stable. On multiple PO drug regimen - hold acutely.
- Follow glucose and cover with SSI.
- Update A1C.
- Adjust medications as needed - ? basal : bolus insulin regimen.
COPD without Acute Exacerbation
- Stable. Continue current inhaled medications.
- Follow for any new symptoms / complaints.
DVT Prophylaxis: Subcut Heparin
Code Status: Full
--- NOTE | 2024-04-23 16:15 | EDRN ---
Pharmacist called for amiodarone infusion at this time.
[2024-04-23 16:22] LABS: Magnesium 1.6 mg/dl (1.6-2.3)
[2024-04-23] MEDS: CORDARONE 518 MG IV (16:31)
[2024-04-23 18:13] LABS: Glucose - Point of Care 165 mg/dl (70-99)
--- NOTE | 2024-04-23 18:14 | PTCARENOTE ---
Patient received from the ED. Transferred from stretcher to bed. AO x 3, A-paced, +1 edema ankles and feet. Fine crackles b/l bases. Stage 2 on his scarum, covered with foam dressing. Bedside commode at bedside per request, can not use urinal. Amino
gtt infusing, VSS, a bedside
[2024-04-23] MEDS: TOPROL XL PO (19:38)
[2024-04-23 20:09] LABS: TSH Reflex To Free T4 3.72 uIU/ml (0.47-4.68)
[2024-04-23] MEDS: HEPARIN SC (20:24)
[2024-04-23] MEDS: CRESTOR 40 MG PO (20:24)
--- NOTE | 2024-04-23 20:46 | PTCARENOTE ---
Pt. received at change of shift. Pt. seen and assessed in room. Amio gtt running at 1mg/hr. Pt. has no complaints of pain at this time. Tele reading A paced. Pt. verbalizes understanding of POC. Call mtz within reach. Continuing to monitor at this
time.
[2024-04-23 21:16] LABS: Glucose - Point of Care 139 mg/dl (70-99)
[2024-04-23] MEDS: NOVOLOG FLEXPEN-LOW RESISTANCE SC (21:16)
--- NOTE | 2024-04-23 21:39 | PTCARENOTE ---
Pt. received at change of shift. Pt. seen and assessed in room with at bedside. Pt. has no complaints of pain at this time. Tele reading Apacing. RN explained POC for shift, pt. verbalizes understanding of plan of care. Amiodarone drip running
at 1mg/min. Continuing to monitor at this time.
[2024-04-23 23:44] LABS: Troponin I 0.016 ng/ml
[2024-04-24] VITALS (19 sets, daily range): BP systolic 86–108; BP diastolic 43–75; PULSE 70–82; BMI 21.6
[2024-04-24] MEDS: ZOFRAN 4 MG IV (01:04)
[2024-04-24 04:10] LABS: Hematocrit 35.9 % (39.0-52.0); Hemoglobin 12.2 g/dL (13.0-18.0); Mean Corpuscular Hgb 30.5 pg (27.0-31.0); Mean Corpuscular Volume 89.8 fL (80.0-94.0); Mean Platelet Volume 10.7 fL (7.4-10.4); Platelet Count 180 10^3/uL (130-400); Red Cell Dist. Width 15.4 % (11.5-14.5); White Blood Cell Count 7.5 10^3/uL (4.8-10.8)
[2024-04-24 04:38] LABS: Blood Urea Nitrogen 27 mg/dl (9-20); Calcium 8.2 mg/dl (8.4-10.2); Carbon Dioxide 25 mmol/L (22-30); Chloride 98 mmol/L (98-107); Estimated Creatinine Clearance 52 ml/min; Glucose 283 mg/dl (70-99); Sodium 131 mmol/L (135-145); eGFR > 60.00
[2024-04-24 04:49] LABS: Troponin I 0.018 ng/ml
[2024-04-24] MEDS: SPIRIVA RESPIMAT 2.5 MCG 2 PUFF INH (07:47)
[2024-04-24] MEDS: ASPIR LOW (ENTERIC COATED) 81 MG PO (08:28)
[2024-04-24] MEDS: CALAN EXTENDED RELEASE PO (08:29)
[2024-04-24] MEDS: HEPARIN 5000 UNITS SC ×2 (08:29→21:48)
--- NOTE | 2024-04-24 09:01 | CON.CAR ---
Consultation
Consultation Request
Date/Time Consultation Requested: 04/24/2024
Date/Time Consultation Performed: 04/24/24
Reason for Consultation: Medical tachycardia
Medical History
-
Chief Complaint: Syncope
History of Present Illness:
83y M with PMH significant for ASCVD, DM-II and SVT / VT s/p recent AICD placement 03/22/2024 ([facility]) who presents to ED complaining of syncopal episode. History obtained from patient and his at the bedside. Patient
states that he was feeling well today and had just eaten lunch when he suddenly lost consciousness.
.
Patient and his both were in the room at the time of my interview. It appears that patient was sudden onset of loss of consciousness with few seconds of vague stare prior to that. states that he was unresponsive for about 30 seconds -
after which he was somewhat confused / 'out of it'. Patient then developed N/V with multiple episodes of non-bloody emesis.
Patient's ICD was interrogated and appears to have episode of ventricular tachycardia associated with the symptoms. Patient's VT was lower than the treatment zone and was not treated.
Past Medical History
Past Medical History: Arrhythmias (Medical tachycardia), CAD, CHF (LVEF 20%), COPD, CVA (TIA), HTN, Hypercholesterolemia, NIDDM and Other
Past Surgical History: Cardiac (CABG x 2; dual-chamber ICD-Medtronic 02/2024) and Other (Left fem-peroneal bypass, Left SFA Stent, Right CEA Left Carotid Stent, T&A, Melanoma Excision, Bilateral Hand Surgeries)
Social History
Tobacco: Former Smoker
Personal:
Living: With Family
Family History
Family History: Reviewed & Not Pertinent
Allergies / Home Medications
Allergy/AdvReac Type Severity Reaction Status Date / Time
Penicillins Allergy leg cramps Verified 03/22/24 08:52
as child-
pt denies
at this
time
�Medication �Instructions �Recorded �Confirmed �Type
glimepiride 4 mg tablet 4 mg PO DAILY Diabetes 10/10/09 04/23/24 History
aspirin 81 mg tablet,delayed 81 mg PO DAILY Blood clot 04/22/11 04/23/24 History
release prevention/tx
dapagliflozin propanediol 10 mg 10 mg PO DAILY Diabetes 06/07/18 04/23/24 History
tablet (Farxiga)
polyvinyl alcohol-povidone (PF) 1 drp RIGHT EYE HS Eye condition 01/30/21 04/23/24 History
1.4 %-0.6 % eye drops in a
dropperette (Refresh Classic (PF))
metformin 500 mg tablet 1,000 mg PO BID Diabetes 05/05/22 04/23/24 History
albuterol sulfate 90 mcg/actuation 1 inh inhalation R Q6HPRN PRN SOB 03/10/24 04/23/24 History
aerosol inhaler
omeprazole 20 mg tablet,delayed 20 mg PO Q48H 03/10/24 04/23/24 History
release
umeclidinium 62.5 mcg/actuation 1 inh inhalation R DAILY 03/10/24 04/23/24 History
blister powder for inhalation
(Incruse Ellipta)
rosuvastatin 40 mg tablet 40 mg PO QPM #0 tabs 03/23/24 04/23/24 Rx
acetaminophen 500 mg tablet 1,000 mg PO Q6HPRN PRN mild pain 04/23/24 04/23/24 History
(Tylenol Extra Strength)
amiodarone 200 mg tablet 200 mg PO QPM 04/23/24 04/23/24 History
metoprolol succinate 25 mg 25 mg PO QPM 04/23/24 04/23/24 History
tablet,extended release 24 hr
oxybutynin chloride 5 mg 5 mg PO DAILY 04/23/24 04/23/24 History
tablet,extended release 24 hr
repaglinide 2 mg tablet 2 mg PO QPM 04/23/24 04/23/24 History
verapamil 120 mg tablet,extended 120 mg PO DAILY 04/23/24 04/23/24 History
release
Review of Systems
-
All other systems: Negative unless noted
Physical Exam
Vital Signs
Temp Pulse Resp BP Pulse Ox
97 F 69 18 90/43 96
04/24/24 08:19 04/24/24 08:29 04/24/24 08:19 04/24/24 08:29 04/24/24 08:19
Lab Results
04/24/24 04:01
04/24/24 04:01
Troponin I 0.018 ng/ml 04/24/24 04:01
Physical Exam
General: Well Developed, Well Nourished and No Apparent Distress
HEENT: Normocephalic, Anicteric and Moist Mucous Membranes
Respiratory: Clear and Non Labored Respirations
Cardiac: S1/S2 and Regular Rhythm
GI: Soft, Non Tender, Non Distended and Normal Bowel Sounds
Musculoskeletal: No Clubbing, No Cyanosis and No Edema
Neuro: Awake, Alert, Oriented and AO x 3
Impression / Plan
-
83-year-old gentleman with coronary disease, ischemic cardiomyopathy, NYHA class III, nonsustained ventricular tachycardia with long VT episodes, frequent PVCs in bigeminy, hypertension, diabetes, severe COPD, severe coronary artery disease, COPD,
TIA, LVEF of 20% with severe coronary disease, not amenable to intervention, on adequate guideline directed medical cardiomyopathy presented with ventricular tachycardia
Ventricular tachycardia/frequent PVCs
-Started on amiodarone
-Already on verapamil and metoprolol with recurrent VT and PVC
-Echo in a.m.
-Left heart cath in a.m.
� Patient has ischemic cardiomyopathy with LVEF of 20% and frequent nonsustained VT/long episodes of VT and frequent PVC with PVC burden about 40%.
�Patient is status post dual-chamber ICD on 03/22/2024�Medtronic MRI compatible.
� Has severe coronary disease but not amenable to intervention previously.
- ICD is switched with atrial preferred pacing with an attempt to suppress PVCs. Currently still in a pattern of bigeminy
-ICD was interrogated and reprogrammed.
Status post dual-chamber ICD
� ICD in situ right-sided implant with right arm fractures and left hand dominance
� Currently atrially paced rhythm with atrial preferred pacing algorithm turned on.
� Atrial peripheral pacing is attempted to suppress the PVCs. It appeared to have reduced the PVC burden but still is quite frequent.
� Device pocket is inspected without any signs of fluctuation, healing normally. No signs of bleeding.
� Chest x-ray is normal and device is appropriately working.
� ICD was reprogrammed to add a VT zone. Currently 3 zones now
with 150 to 168 bpm as monitor zone
168-188 bpm- fast VT zone with treatment with ATP followed by shock
> 188 bpm -VF zone
Ischemic cardiomyopathy
� NYHA class III. Currently appears to be well compensated
� LVEF is 20%.
� On aspirin, Farxiga, lisinopril, metoprolol, and rosuvastatin.
-Holding Farxiga and lisinopril with upcoming cardiac catheterization in the morning.
- Not on spironolactone due to hyperkalemia.
� Status post dual-chamber ICD. Patient's QRS duration is 110 ms with normal conduction with normally conducted QRS complexes. Patient does have frequent PVCs.
Data Reviewed
-
EKG: Tracing Personally Visualized and interpreted
Radiology: Report Reviewed by me
MRI: Image Personally Visualized and interpreted
Medical Tests (Nuc Med, Echo etc): Image Personally Visualized and interpreted
Labs: Labs Reviewed by me
Old Records: Reviewed
[2024-04-24 09:29] LABS: Glucose - Point of Care 95 mg/dl (70-99)
[2024-04-24] MEDS: NOVOLOG FLEXPEN-LOW RESISTANCE SC ×2 (09:30→12:27)
--- NOTE | 2024-04-24 09:33 | PTCARENOTE ---
Assumed care. Ortho vitals obtained, lightheadedness with sitting, resolved. Patient in the chair. Voided 200 of yellow urine on the bedside. commode. Right foot dressing secure and left outer aspect of his left foot scabbed. A-paced on telemetry.
BP 99/47, PO verapamil held this morning per parameters, call mtz in reach
--- NOTE | 2024-04-24 14:43 | W.PN.HOSP.TC ---
Today's Communication/Plan
-
NPO p MN for cath
Echo
continue IV Amiodarone
Assessment / Plan
Assessment / Plan
Assessment:
Ventricular Tachycardia
Syncope secondary to the above
- continue IVU level of care
- continue Amio drip
- CBC Cards following
- Cath tomorrow, also needs an Echo which is ordered.
ASCVD
Non-Healing R Foot Wound
- CAD, PAD, Carotid disease - extensive ASCVD history.
- Continue current med regimen including ASA, statin.
- Wound care for non-healing R foot wound.
- Tentative plan for RLE re-vascularization procedure per patient.
Chronic HFrEF
- Stable. Trace edema but no other evidence of volume overload.
- Not maintained on chronic diuretic regimen (Farxiga).
- Follow I/Os, daily weights, etc.
DM-II
- Stable. On multiple PO drug regimen - hold acutely.
- Follow glucose and cover with SSI.
- A1c is 7.0%
- Adjust medications as needed - ? basal:bolus insulin regimen.
COPD without Acute Exacerbation
- Stable. Continue current inhaled medications.
- Follow for any new symptoms / complaints.
DVT Prophylaxis: SC Heparin
Code Status: Full
Anticipated Discharge: > 48 hours
Subjective/Interval History
-
Date of Service: April 24, 2024
denies any new complaints at present
Objective Data
-
Labs:
Laboratory Results
04/24/24
04:01
WBC 7.5
Hgb 12.2 L
Hct 35.9 L
Plt Count 180
Sodium 131 L D
Potassium 4.0
Chloride 98
Carbon Dioxide 25
BUN 27 H
Creatinine 1.1
Glucose 283 H
Calcium 8.2 L
Vital Signs:
Vital Signs
Temp Pulse Resp BP Pulse Ox
97.5 F 65 20 99/47 99
04/24/24 12:18 04/24/24 09:30 04/24/24 12:18 04/24/24 09:09 04/24/24 12:18
I&O
04/23/24 04/24/24 04/25/24
06:59 06:59 06:59
Intake Total
Output Total 200 / 200
Balance -200 / -200
Physical Exam
-
General: No Apparent Distress
HEENT: Normocephalic and Atraumatic
Respiratory: Negative Wheezes
Cardiac: Regular Rhythm and S1/S2
GI: Soft and Nontender
Musculoskeletal: No Edema
Neuro: AO x 3
Hematologic / Lymphatic: No Lymphadenopathy
Psych: Calm
Data Reviewed
-
Total Time Spent with Patient (in minutes): 41
Labs: Labs Reviewed by me
[2024-04-24 17:29] LABS: Glucose - Point of Care 174 mg/dl (70-99)
[2024-04-24] MEDS: CRESTOR 40 MG PO (17:35)
[2024-04-24] MEDS: TOPROL XL PO (18:13)
[2024-04-24] MEDS: CORDARONE 518 MG IV (18:16)
[2024-04-24] MEDS: NOVOLOG FLEXPEN-LOW RESISTANCE 1 UNITS SC (19:01)
--- NOTE | 2024-04-24 20:16 | PTCARENOTE ---
Patient in bed, IV team placing mid-line for Amino infusion. Portable X-ray ordered
--- NOTE | 2024-04-24 20:25 | PTCARENOTE ---
L PICC LINE REPOSITIONED X1 PER RADIOLOGIST REPORT, REPEAT IMAGING ORDERED, PT RESTING
--- NOTE | 2024-04-24 21:37 | PTCARENOTE ---
Call received from IV nurse. Midline is in the distal SVC. OK to use midline
[2024-04-24 22:54] LABS: Glucose - Point of Care 157 mg/dl (70-99)
[2024-04-25] VITALS (24 sets, daily range): BP systolic 78–157; BP diastolic 40–130; PULSE 65–74; BMI 20.5
[2024-04-25 04:21] LABS: Hematocrit 38.5 % (39.0-52.0); Mean Corp Hgb Conc. 33.8 g/dL (33.0-37.0); Mean Corpuscular Hgb 30.8 pg (27.0-31.0); Mean Corpuscular Volume 91.2 fL (80.0-94.0); Platelet Count 155 10^3/uL (130-400); Red Blood Cell Count 4.22 10^6/uL (4.70-6.10); Red Cell Dist. Width 15.5 % (11.5-14.5); White Blood Cell Count 8.8 10^3/uL (4.8-10.8)
[2024-04-25 04:55] LABS: Blood Urea Nitrogen 24 mg/dl (9-20); Calcium 8.8 mg/dl (8.4-10.2); Carbon Dioxide 25 mmol/L (22-30); Chloride 103 mmol/L (98-107); Estimated Creatinine Clearance 52 ml/min; Glucose 125 mg/dl (70-99); Magnesium 1.7 mg/dl (1.6-2.3); Potassium 4.2 mmol/L (3.5-5.1); Sodium 136 mmol/L (135-145); eGFR > 60.00
--- NOTE | 2024-04-25 05:31 | PTCARENOTE ---
Apaced on monitor. VSS. Pt denies lightheadedness or dizziness when OOB. Denies pain or discomfort this shift
[2024-04-25] MEDS: SPIRIVA RESPIMAT 2.5 MCG 2 PUFF INH (08:05)
[2024-04-25] MEDS: CALAN EXTENDED RELEASE 120 MG PO (08:14)
[2024-04-25] MEDS: ASPIR LOW (ENTERIC COATED) 81 MG PO (08:14)
[2024-04-25] MEDS: HEPARIN 5000 UNITS SC (08:15)
[2024-04-25 08:30] LABS: Glucose - Point of Care 133 mg/dl (70-99)
[2024-04-25] MEDS: NOVOLOG FLEXPEN-LOW RESISTANCE SC ×3 (08:32→18:03)
--- NOTE | 2024-04-25 08:33 | W.PN.CD ---
Today's Communication / Plan
-
Cardiac catheterization today to clarify coronary anatomy.
Impression / Plan
-
Impression/Plan: 83-year-old gentleman with hypertension, diabetes, severe COPD, TIA, coronary disease s/p CABG x2 (FERNÁNDEZ to LAD, SVG to OM), ischemic cardiomyopathy (LVEF 20%), NYHA class III chronic HFpEF, nonsustained ventricular tachycardia with
long VT episodes, frequent PVCs in bigeminy on adequate guideline directed medical cardiomyopathy presented with ventricular tachycardia/syncope.
#Ventricular tachycardia/PVC's/syncope
-Acute.
-PVC's = 40%.
-ICD interrogation shows slow VT, below treatment threshold.
-Started on amiodarone
-Already on verapamil and metoprolol with recurrent VT and PVC.
-Echo pending.
-Cath this morning to r/o ACS. Troponin is negative.
-ICD was reprogrammed to atrial preferred pacing (attempt to supress PVCs) and to add a VT zone. Currently 3 zones now:
-150 to 168 bpm = monitor zone.
-168-188 bpm = fast VT zone with treatment with ATP followed by shock.
->188 bpm -VF zone.
-Role for ablation (especially if we have to remove verapamil)?
#CAD
-Chronic.
-S/P remote 2V CABG (FERNÁNDEZ to LAD, SVG to OM).
-Continue aspirin, metoprolol rosuvastatin.
-Cardiac catheterization this morning.
#ICMO
-Chronic.
-LVEF 20%.
-S/P ICD.
-Continue metoprolol, dapagliflozin.
-No spironolactone due to prior hyperkalemia.
-We may need to discontinue verapamil.
#HFrEF
-Chronic, NYHA class III.
-Appears euvolemic.
#COPD
-Chronic.
-Continue home bronchodilators.
#HTN
-Chronic, stable.
#HLD
-Chronic, stable.
Subjective/Interval History:
No acute events.
No subjective complaints.
He denies chest pain.
DATA:
Echocardiogram, 02/23/2024:
CONCLUSIONS
Severely reduced left ventricular function with estimate ejection fraction of
20 to 25%Mild aortic regurgitation.
Mild tricuspid regurgitation.
Aortic sclerosis. There appears to be restricted leaflet motion but mean
gradient peak gradient only 9 mmHg
Mild aortic regurgitation
Mild to moderate mitral regurgitation
Mild tricuspid regurgitation.
Compared to the previous echo report from 03/12/2020 the patient's had a marked
reduction in left ventricular function with no wall motion abnormalities.
Previous echo report with normal left ventricular function and an ejection
fraction of 60 to 65%.
Cardiac Catheterization, 03/16/2024:
CONCLUSIONS:
1. Right dominant circulation with left main coronary artery stenosis, 90% lesion in the proximal LAD, 70% lesion in the mid LAD, diffusely diseased mid and distal LAD with a large, parallel second diagonal, and 80% lesion in OM1, flush occluded OM
2 supplied by collaterals from the diagonal and a chronic total occlusion of the mid RCA with right to right collaterals from a large RV marginal status post prior coronary artery bypass grafting (patent FERNÁNDEZ to large D2, patent SVG to diffusely
diseased OM 2 branches with mild graft degeneration of the proximal and midportion somewhat responsive to nitroglycerin).
2. Mildly elevated filling pressures (PCWP = 16 mmHg, LVEDP = 16 mmHg at 72.6 kg) with evidence of diastolic dysfunction (A wave to 30 mmHg), likely appropriate given degree of LV dysfunction.
3. Severe left ventricular dysfunction on echocardiography, LVEF = 20-25%.
CXR, 04/23/2024:
IMPRESSION:
Small left pleural effusion. Patchy parenchymal opacity within the left lower lung, likely atelectasis.
Right chest wall defibrillator with lead tips over the right atrium and the right ventricle, stable. No evidence for pneumothorax.
Physical Exam
Vital Signs/Labs
Vital Signs
Temp Pulse Resp BP Pulse Ox
36.4 C 76 16 107/66 97
04/25/24 08:12 04/25/24 08:14 04/25/24 08:12 04/25/24 08:14 04/25/24 08:12
04/23/24 04/24/24 04/25/24
11:59 11:59 11:59
Actual Weight 72.3 kg 68.4 kg
04/25/24 04:02
04/25/24 04:02
Magnesium 1.7 mg/dl (1.6-2.3) 04/25/24 04:02
LAB Results
04/23/24 04/23/24 04/23/24
14:42 17:34 22:44
Troponin I 0.012 Cancelled Cancelled
04/23/24 04/24/24 04/24/24
23:11 04:01 10:00
Troponin I 0.016 0.018 Cancelled
Physical Exam
Constitutional: No acute distress and Comfortable
EENT: Anicteric and Moist mucous membranes
Cardiovascular: Rhythm & rate is regular, Pedal edema is absent, JVD pressure is normal, S1S2 is normal and Murmur/rub/gallop absent
Respiratory: Respiratory effort normal, Lungs clear to auscul., Wheeze Absent, Crackles Absent and Rhonchi Absent
GI: Soft, Distention absent, Flat, Non tender and Normal bowel sounds
Neuro/Psych: AO x 3
Data Reviewed
-
Date of Service: April 25, 2024
Medical Decision Making: Reviewed Test Results, Independent Historian Assessment and Test Interpretation
EKG: Tracing Personally Visualized and interpreted and Report Reviewed by me
Echo: Report Reviewed by me
X-Ray/CT/US/MRI/NUC/PET: Image Personally Visualized and interpreted and Report Reviewed by me
Medical Tests (PFT, Pathology etc): Image Personally Visualized and interpreted and Report Reviewed by me
Labs: Labs Reviewed by me
Old Records: Reviewed
--- NOTE | 2024-04-25 09:56 | ITS.CL.CATH ---
School Coordinator - Catheterization
Cardiac Catheterization
Procedure Report:
CARDIAC CATHETERIZATION REPORT
Date of Procedure: 04/25/2024
Referring: Jo Serrano M.D.
INDICATION: Slow ventricular tachycardia with syncope, known coronary artery disease with ischemic cardiomyopathy.
PROCEDURE:
1. Left heart catheterization.
2. Coronary angiography.
3. Bypass angiography.
ACCESS:
6 Congolese left radial artery.
CATHETERS:
1. 5 Congolese ANGELES.
2. 5 Congolese JR 4.
3. 5 Congolese JL 4.
4. 5 Congolese AL-1.
HEMODYNAMIC DATA
Weight (kg): 72.3
AO (s/d/x, mmHg): 113/50/71
LV (s/x mmHg): 115/12
LEFT VENTRICULOGRAPHY: Not performed.
CORONARY ANGIOGRAPHY
Dominance: Right.
Left Main: Short, bifurcating vessel. There is an 80% lesion in the left main coronary artery seen in the [place] cranial view.
LAD: Normal size vessel giving rise to a large second diagonal which runs parallel to the true vessel. The mid and distal LAD is a small, diffusely diseased vessel with a 90% lesion in the mid vessel, spanning the origin of D2l. The second
diagonal is supplied via a patent FERNÁNDEZ graft.
Ramus: Congenitally absent.
Circumflex: Normal size, nondominant vessel giving rise to 2 obtuse marginals. OM1 is a relatively small, diffusely diseased vessel. OM 2 is a more substantial vessel bifurcating into an upper and lower branch. There is a 60% lesion in the
proximal circumflex. There is a 60% lesion in the proximal third of OM 2. The lower branch of OM 2 is chronically totally occluded and supplied by a patent vein graft.
RCA: Normal size, dominant vessel. The vessel is chronically totally occluded in its midportion immediately after the RV marginal. The RPDA is supplied by collaterals from the RV marginal. The chronic total occlusion is approximately 18 mm
long with a blunt cap.
BYPASS GRAFT ANGIOGRAPHY
FERNÁNDEZ to D2: Normal size graft with end-to-side anastomosis to the midpoint of the second diagonal. There is no evidence of stenosis or degeneration.
SVG to OM 2: Small size graft with end-to-side anastomosis to the lower branch of OM 2. There is some moderate degeneration of the proximal half of the graft, unchanged from prior angiogram. The anastomosed vessel is diffusely diseased with
trivial outflow.
INTERVENTION(S)
None.
Closure Device: Vascular band.
Radiation (mGy): 495.01
DAP (cm2.Gy): 34.0962
Fluoroscopy time (minutes): 4.9
Sedation time (minutes): 56
CONCLUSIONS
1. Right dominant circulation with a 80% lesion in the mid to distal portion of the left main coronary artery (seen in the [place] cranial view), a 90% lesion in the mid LAD spanning the origin of a large second diagonal followed by diffuse disease of
the entire mid and distal LAD, 60% lesion in the proximal circumflex, a 60% lesion in the proximal third of OM 2, a chronic total occlusion of the lower branch of OM 2 and a chronic total occlusion of the mid RCA (approximately 18 mm long, blunt
cap) Status post two-vessel bypass with a patent FERNÁNDEZ to D2 and a patent SVG to the lower branch of OM 2 with trivial outflow.
2. Normal filling pressures (LVEDP = 12 mmHg).
3. In general, stable coronary artery disease from prior cardiac catheterization. No specific nidus for new ventricular tachycardia.
RECOMMENDATIONS:
1. Expectant management after cardiac catheterization via left radial approach.
2. Limited weight bearing on the left wrist for one week.
3. Continue guideline directed medical therapy as hemodynamically tolerated.
4. Continue aggressive secondary prevention with high-dose, high potency statin.
5. The patient has been started on amiodarone for VT suppression and his ICD has been reprogrammed.
6. There may be a role for future VT ablation.
7. As the patient was not experiencing any chest pain with negative troponins, we did not feel that this was acute coronary syndrome requiring PCI.
Copy to: Jo Serrano M.D., Nahun Templeton M.D., Ph.D., Kushal Keen M.D.
Guevara Ramon DO, FACC, FACP
[2024-04-25] MEDS: NSS 1000 IV (10:52)
[2024-04-25] MEDS: MAGNESIUM SULFATE 50 IV (11:03)
--- NOTE | 2024-04-25 12:30 | CM ---
Reviewed chart. Met with and Mrs. Collier to review discharge plans. He states prior to admission he resides with his spouse in a one story home with four steps to enter. He states prior to admission he ambulates with a rolling walker. He states
he has a rolling walker, single point cane and rollator at home. He states he has a prescription plan and uses [facility]. He states he had [facility] in the past., several years ago. Medical work-up in progress. The discharge plan is to return home
with his spouse when medically stable.
--- NOTE | 2024-04-25 12:45 | W.PN.HOSP.TC ---
Today's Communication/Plan
-
Neuro consult
Head CT
Assessment / Plan
Assessment / Plan
83yo M with PMHx of CAD s/p CABG, slow VT s/p ICD, DM, COPD, Urinary urgency, HLD came with recurrent episodes of 'syncope' decscribed as staring spell lasting for appr 20-30sec. ICD interrogation in ED showed VT without reaching threshold for
shockCardiology did R/L heart catheterization without new focus for VT.
A/P:
#VT with slow response
s/p cath on 04/25/24 by cardiology- cont GDMT, might need ablation eventually. COnt Amiodarone. No stent placed as patient w/o chest pain
Echo
#Syncopal episodes with staring spell
Head CT
Hold off EEG pending neurologist eval
#DM type 2 with neuropathy
hold oral hypoglycemics
Insulin SS, DM diet, accuchecks
HgbA1c 7.0%
no concern for hypoglycemia episodes at this time
#CAD s/p CABG
#Chronic HFrEF
#COPD, not in exacerbation
cont home meds
DVT ppx hep
Full code
I have spent at least 37min reviewing chart, test results and providing direct patient care
Anticipated Discharge: Within 24 hours
Subjective/Interval History
-
Date of Service: April 25, 2024
Objective Data
-
Labs:
Laboratory Results
04/25/24
04:02
WBC 8.8
Hgb 13.0
Hct 38.5 L
Plt Count 155
Sodium 136
Potassium 4.2
Chloride 103
Carbon Dioxide 25
BUN 24 H
Creatinine 1.1
Glucose 125 H
Calcium 8.8
Vital Signs:
Vital Signs
Temp Pulse Resp BP Pulse Ox
97.6 F 64 16 80/44 92
04/25/24 08:12 04/25/24 12:00 04/25/24 08:12 04/25/24 12:00 04/25/24 12:00
I&O
04/24/24 04/25/24 04/26/24
06:59 06:59 06:59
Intake Total
Output Total 200 / 200
Balance -200 / -200
Review of Systems
-
History Source: Patient
All other systems: Reviewed and negative
Physical Exam
-
General: No Apparent Distress
HEENT: Normocephalic
Respiratory: Clear to Auscultation
Cardiac: Regular Rhythm
GI: Soft, Nontender and Nondistended
Musculoskeletal: No Clubbing, No Cyanosis and No Edema
Neuro: Awake, Alert, Oriented, AO x 3 and No Motor Deficits
Psych: Calm
[2024-04-25 12:50] LABS: Glucose - Point of Care 134 mg/dl (70-99)
--- NOTE | 2024-04-25 13:20 | CON.NEURO4 ---
Addendum entered and electronically signed by Pino Mcnair MD 04/25/24 15:58:
Addendum: Neurology attending note:
Mr. Collier's EEG showed normal cortical rhythm with background 7 to 8 Hz
PLAN: Depakote 250 mg nightly
Maintain systolic blood pressure of 100-120
Patient may be discharged home once medically stable
Original Note:
Consultation - Neurology 4
-
CONSULTING PHYSICIAN: Pino Mcnair MD neurology
REFERRING PHYSICIAN: Hospitalist
DICTATED BY: Pino Mcnair MD
DATE/TIME OF REQUEST: April 25, 2024
DATE/TIME OF CONSULTATION: April 25, 2024
Reason for Consultation: Passing out episodes
History of Present Illness:
This is a 83year old right) handed (male who has presented to the hospital with (chief complaint) of passing out episodes since January. 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
coronary artery disease ASCVD, DM-II and SVT / VT s/p recent AICD placement() who was admitted following recurrent syncopal episodes. Patient states that he was feeling well today and had just eaten lunch when he suddenly lost
consciousness. He was spacing out and unresponsive to verbal commands. he woke up after. 30 seconds and was confused and disoriented. No tonic clonic activity. No tongue bite or incontinence as per the he was confused / 'out of it'.
Patient then threw up with multiple episodes of non-bloody emesis. Pat has limited recall. No aura. No focal weakness or numbness. No difficulty speaking swallowing or incoordination
He has been having these events since January. And he had 1 episode every month
Past Medical History: As above
Surgical History: Cardiac cath, CABG dual-chamber Medtronic ICD left femoropopliteal bypass left superior femoral artery stent right carotid endarterectomy left carotid stenting T&A and bilateral hand surgeries
Family History: Noncontributory
Social History: lives at home with his
Allergies: Penicillin
Home Medications: Addendum
Review of Symptoms:
Patient denies any fever, headache, chest pain, shortness of breath, GI or symptoms.
�Per the HPI.�All systems are reviewed negative except above.
�-
Vital Signs:
The patient has Vital Signs
Temp Pulse Resp BP Pulse Ox
36.4 C 64 16 80/44 92
Physical Exam:
The patient is afebrile, heart sounds S1 and S2 are (regular / irregular), and chest is clear to auscultation bilaterally.
- If not clear, describe.
NIH Stroke Scale (if applicable):
I performed the NIH stroke scale on the patient on (date & time). The patient scored ( ) points on the NIH stroke scale assessment, which were assigned as follows:
Neurologic Examination:
The patient is awake, alert and oriented x 3. (He/She) is able to follow commands and answer questions appropriately. There is no aphasia or dysarthria.
On cranial nerve assessment, pupils are 3 mm bilateral, round and reactive to light and accommodation. Visual arboleda are full. Extraocular movements are intact. Facial sensations are intact and bilaterally symmetrical, there is no facial asymmetry.
Hearing is intact bilaterally to normal conversation volume. Tongue palate and uvula are midline. Sternocleidomastoid strengths are full bilaterally. Motor strengths are 5/5 bilateral upper and lower extremities on medical research [place] scale.
There is no drift or involuntary movement noted.
Deep tendon reflexes are + bilateral upper and lower extremities and Babinski is absent bilaterally.
Sensations of pain, touch, temperature and vibration are intact and bilaterally symmetrical. There was no extinction noted on double simultaneous stimulation. Coordination is intact by finger to nose bilaterally.
Romberg's and gait were not tested as patient is bedbound
Lab Results: Addendum
Neuro Imaging: CT head shows cortical atrophy small vessel disease normal ventricles
Impression:
(Mr. AMBROSE COLLIER is a 83 year old M who has presented to the hospital with (symptoms/chief complaint) recurrent episodes of syncope.
Differentials for the patient's presentation include:
1. Complex partial seizure
2. Orthostatic hypotension secondary to autonomic dysfunction(diabetic)
Recommendations:
1. EEG
2. Management of blood pressure medications
3. Keep MAP at [address] head completed
Discussed patient care with: Hospitalist
Allergies
-
Allergies
Allergy/AdvReac Type Severity Reaction Status Date / Time
Penicillins Allergy leg cramps Verified 03/22/24 08:52
as child-
pt denies
at this
time
Vital Signs and Labs
-
Vital Signs and Labs:
Vital Signs
Temp Pulse Resp BP Pulse Ox
36.4 C 64 16 80/44 92
04/25/24 08:12 04/25/24 12:00 04/25/24 08:12 04/25/24 12:00 04/25/24 12:00
Lab Results
04/25/24 04:02
04/25/24 04:02
Sodium 136 mmol/L (135-145) 04/25/24 04:02
Potassium 4.2 mmol/L (3.5-5.1) 04/25/24 04:02
BUN 24 mg/dl (9-20) H 04/25/24 04:02
Glucose 125 mg/dl (70-99) H 04/25/24 04:02
Calcium 8.8 mg/dl (8.4-10.2) 04/25/24 04:02
Medications
-
Active Medications
Generic Name Dose Route Start Last Admin
Trade Name Freq PRN Reason Stop Dose Admin
Acetaminophen 650 mg 04/23/24 17:34
Acetaminophen 325 Mg Tablet PO 05/21/24 17:33
Q4HPRN PRN
Mild Pain / Temp > 101
Aspirin 81 mg 04/24/24 08:00 04/25/24 08:14
Aspirin 81 Mg (Enteric Coated) Tablet PO 05/22/24 07:59 81 mg
DAILY KIERSTEN Administration
Dextrose 12.5 grams 04/23/24 17:34
Dextrose 50% (0.5 Grams/Ml) 50 Ml Syringe IV 05/21/24 17:33
[id number] PRN
hypoglycemia
Protocol
Glucagon 1 mg 04/23/24 17:34
Glucagon 1 Mg Vial IM 05/21/24 17:33
PRN PRN
hypoglycemia
Protocol
Heparin Sodium 5,000 units 04/23/24 20:00 04/25/24 08:15
Heparin 5,000 Units/Ml 1 Ml Vial SC 05/21/24 19:59 5,000 units
Q12 KIERSTEN Administration
Amiodarone HCl 900 mg/ 518 mls @ 0 mls/hr 04/23/24 16:30 04/24/24 18:16
Dextrose/Water IV 518 mls
PER PROTOCOL KIERSTEN Administration
Protocol
Per Protocol
Sodium Chloride 1,000 mls @ 0 mls/hr 04/25/24 10:00 04/25/24 10:52
Nss IV 04/26/24 09:52 1,000 mls
PER PROTOCOL KIERSTEN Administration
Protocol
Per Protocol
Insulin Aspart 0 units 04/23/24 17:34 04/25/24 13:14
Insulin Aspart Low Resistance 300 Units/3 Ml Pen.Injctr SC 05/21/24 17:33 Not Given
AC KIERSTEN
Protocol
Metoprolol Succinate 25 mg 04/23/24 18:00 04/24/24 18:13
Metoprolol 25 Mg Extended Release Tablet PO 05/21/24 17:59 Not Given
QPM KIERSTEN
Rosuvastatin Calcium 40 mg 04/23/24 18:00 04/24/24 17:35
Rosuvastatin (Crestor) 40 Mg Tablet PO 05/21/24 17:59 40 mg
QPM KIERSTEN Administration
Sodium Chloride 0 flush 04/23/24 19:00
Sodium Chloride 0.9% (Flush) Syringe IV 05/21/24 18:59
PER PROTOCOL KIERSTEN
Tiotropium [place] 2 puff 04/24/24 08:00 04/25/24 08:05
Tiotropium (Spiriva Respimat) 2.5 Mcg Inhaler INH 05/22/24 07:59 2 puff
R DAILY KIERSTEN Administration
Verapamil HCl 120 mg 04/24/24 08:00 04/25/24 08:14
Verapamil 120 Mg (Extended Release) Tablet PO 05/22/24 07:59 120 mg
DAILY KIERSTEN Administration
Home Medications
�Medication �Instructions �Recorded
glimepiride 4 mg tablet 4 mg PO DAILY Diabetes 10/10/09
aspirin 81 mg tablet,delayed 81 mg PO DAILY Blood clot 04/22/11
release prevention/tx
dapagliflozin propanediol 10 mg 10 mg PO DAILY Diabetes 06/07/18
tablet (Farxiga)
polyvinyl alcohol-povidone (PF) 1 drp RIGHT EYE HS Eye condition 01/30/21
1.4 %-0.6 % eye drops in a
dropperette (Refresh Classic (PF))
metformin 500 mg tablet 1,000 mg PO BID Diabetes 05/05/22
albuterol sulfate 90 mcg/actuation 1 inh inhalation R Q6HPRN PRN SOB 03/10/24
aerosol inhaler
omeprazole 20 mg tablet,delayed 20 mg PO Q48H 03/10/24
release
umeclidinium 62.5 mcg/actuation 1 inh inhalation R DAILY 03/10/24
blister powder for inhalation Lung/Breathing Issues
(Incruse Ellipta)
rosuvastatin 40 mg tablet 40 mg PO QPM #0 tabs 03/23/24
acetaminophen 500 mg tablet 1,000 mg PO Q6HPRN PRN mild pain 04/23/24
(Tylenol Extra Strength)
amiodarone 200 mg tablet 200 mg PO QPM Heart 04/23/24
Disease/Condition
metoprolol succinate 25 mg 25 mg PO QPM Blood Pressure 04/23/24
tablet,extended release 24 hr
oxybutynin chloride 5 mg 5 mg PO DAILY 04/23/24
tablet,extended release 24 hr
repaglinide 2 mg tablet 2 mg PO QPM 04/23/24
verapamil 120 mg tablet,extended 120 mg PO DAILY 04/23/24
release
--- NOTE | 2024-04-25 13:48 | WOUNDNOTE ---
[facility] RN NOTE: Reviewed chart and met with patient and . Both explain that patient follows with accounts adjustable clerk for foot wound and had a graft placed 10 days ago. Plan was to removed dressing today. Visited patient x3 but he was at a test, having lunch
and now having EEG. Will follow up with patient on 04/26. Patient states understanding of plan. RN updated.
--- NOTE | 2024-04-25 14:13 | PTCARENOTE ---
Received pt post cardiac cath. VSS. Pt denies any chest discomfort. Right radial band intact w/ 8 ml of air. Orders noted. Will monitor.
--- NOTE | 2024-04-25 15:49 | EEG.RPT ---
Electroencephalogram Report
Recording
Date of EE04/25/24
Type of EEG: Routine
Length of EEG recordin minutes
Done with Video Recording: Yes
Patient Status: Inpatient
Recording Conditions: Awake, Drowsy and Asleep
Hyperventilation Performed: No
Photic Stimulation Performed: Yes
Report
LESS THAN 1 HOUR EEG REPORT
LESS THAN 1 HOUR EEG INTERPRETATION:
Likely unremarkable EEG for age
CLINICAL CORRELATION:
Although normative values not been established for a person of this advanced age, the patient�s symmetry of the background suggests that this study was unremarkable.
A normal EEG does not rule out a diagnosis of epilepsy. If clinical suspicion for seizure persists, a prolonged recording may be warranted.
Clinical correlation is advised.
METHODS:
A 21 channel digitized electroencephalogram (EEG) was performed using the 10/20 international system of electrode placement and one-lead of ECG recorded. The Kraken quantitative analysis system was utilized.
ELECTROENCEPHALOGRAPHER IMPRESSION(S):
Quality of study
Good
Background
There was an unremarkable anterior-posterior voltage gradient of alpha frequency.
With eye opening the background activity changed to a low voltage mixture of frequencies.
There were no significant asymmetries of background activity noted.
Sleep
Drowsiness present
Stage 1 sleep recorded
Photic Stimulation
Produced driving at intermediate flash frequencies symmetrically
ECG
Normal sinus rhythm
[2024-04-25 17:52] LABS: Glucose - Point of Care 159 mg/dl (70-99)
[2024-04-25] MEDS: CRESTOR 40 MG PO (18:04)
[2024-04-25] MEDS: TOPROL XL 25 MG PO (18:19)
[2024-04-25] MEDS: HEPARIN SC (20:49)
[2024-04-25 21:59] LABS: Glucose - Point of Care 189 mg/dl (70-99)
[2024-04-26] VITALS (16 sets, daily range): BP systolic 80–111; BP diastolic 48–74; PULSE 63–74; O2SAT 90; BMI 20.6
[2024-04-26] MEDS: CORDARONE 518 MG IV (02:01)
[2024-04-26 04:36] LABS: % Basophils 0.5 % (0-2); % Eosinophils 2.4 % (0-6); % Immature Granulocytes 0.4 % (0-0.5); % Lymphocytes 17.8 % (20.5-51.1); % Monocytes 8.3 % (1.7-9.3); % Neutrophils 70.6 % (42.2-75.2); Absolute Eosinophils 0.2 10^3/uL (0-0.7); Absolute Lymphocytes 1.4 10^3/uL (1.2-3.4); Absolute Monocytes 0.7 10^3/uL (0.1-0.6); Absolute Neutrophils 5.6 10^3/uL (1.4-6.5); Hematocrit 37.9 % (39.0-52.0); Hemoglobin 12.7 g/dL (13.0-18.0); Mean Corp Hgb Conc. 33.5 g/dL (33.0-37.0); Mean Corpuscular Hgb 30.2 pg (27.0-31.0); Mean Platelet Volume 11.1 fL (7.4-10.4); Nucleated Red Blood Cells % 0 % (-); Platelet Count 174 10^3/uL (130-400); Red Blood Cell Count 4.21 10^6/uL (4.70-6.10); Red Cell Dist. Width 15.9 % (11.5-14.5); White Blood Cell Count 7.9 10^3/uL (4.8-10.8)
[2024-04-26 05:00] LABS: ALT (SGPT) 112 U/L (0-50); AST (SGOT) 108 U/L (17-59); Albumin 2.9 g/dl (3.5-5.0); Alkaline Phosphatase 130 U/L (38-126); Blood Urea Nitrogen 22 mg/dl (9-20); Calcium 8.4 mg/dl (8.4-10.2); Carbon Dioxide 25 mmol/L (22-30); Chloride 102 mmol/L (98-107); Estimated Creatinine Clearance 45 ml/min; Glucose 126 mg/dl (70-99); Potassium 4.5 mmol/L (3.5-5.1); Sodium 135 mmol/L (135-145); Total Bilirubin 0.5 mg/dl (0.2-1.3); Total Protein 5.2 g/dl (6.3-8.2); eGFR > 60.00
--- NOTE | 2024-04-26 07:03 | PTCARENOTE ---
Pt A-paced on monitor, VSS. Cont. Amio gtt. Pt denies pain or discomfort.
[2024-04-26] MEDS: SPIRIVA RESPIMAT 2.5 MCG 2 PUFF INH (07:53)
--- NOTE | 2024-04-26 07:55 | PTCARENOTE ---
Assumed care of pt from prev nsg shift; Pt AAOx3 w/no c/o CP or SOB. Pt's BP low this AM 98/60 w/HR in the 60's. Pt is 100% A paced on telemetry monitoring. Pt NPO since 0000. Pt taken via stretcher for Head CT & ABD U/S. Plan of care ongoing.
[2024-04-26 07:57] LABS: Glucose - Point of Care 116 mg/dl (70-99)
[2024-04-26] MEDS: CALAN EXTENDED RELEASE PO (08:20)
[2024-04-26] MEDS: NOVOLOG FLEXPEN-LOW RESISTANCE SC ×2 (08:30→13:54)
[2024-04-26 09:37] LABS: Hepatitis B Surface Antigen Negative (Negative)
[2024-04-26 09:46] LABS: Hepatitis A IgM Antibody Negative (Negative)
[2024-04-26 09:56] LABS: Hepatitis B Core Ab, Total Negative (Negative); Hepatitis B Surface Antibody Negative; Hepatitis C Antibody Negative (Negative)
--- NOTE | 2024-04-26 10:23 | PTCARENOTE ---
Rec'd pt back via stretcher from testing. Pt requesting to sit in the CH. 2P assist w/RW to CH. Orthostatic VS attempted. Only able to get lying & sitting BPs as pt unable to stand any length of time. WOC RN in to see pt. Pt w/call mtz within reach
& plan of care ongoing.
--- NOTE | 2024-04-26 10:45 | WOUNDNOTE ---
L MEDIAL 5TH TOE
--- NOTE | 2024-04-26 10:46 | WOUNDNOTE ---
[facility] RN note: Patient admitted with syncope.
See H&P for complete history. Lives with Kalie.
PMH: NIDDM,COPD,CAD,PVD/PAD- LLE arterial bypass(2020), V Tach-ICD Feb 2024, CABG, stents, ex-smoker.
Wound Location and type/assessment: Patient admitted with: Stage 1 PI on sacrum/buttocks, non blanchable red. Silicone foam applied to sacrum and air chair cushion in use. R medial ankle with chronic ulcer, suspect diabetic and PAD related. Patient
had a skin substitute graft applied to R ankle ulcer approximately 10 days ago by [facility] Dr. Rodriguez. Dressing removed revealing adaptic, secured with steri strips. Contacted Dr. Rodriguez who confirmed can remove dressing and apply adaptic and
gauze dressing. Can weight bear and use sandal when ambulating. [facility] said that he has poor circulation in foot and graft not able to take. Patient scheduled to follow up with [facility] and wound care center upon discharge. at bedside
reports that her saw a Vascular DrScott and revascularization was recommended. Patient does not want to go through with another procedure right now. IRAIS on 04/18 showed R leg 0.61 and TBI 0.25. Patient and report he had ulcers on R great toe
and L 5th toe in past, since healed. Now using a foam spacer on L toe and lambs wool around R great toe. Legs are very dry, + pulses audible with Doppler, toes warm and dry. Heels are intact, blanchable red, pillow under calves in use. Legs elevated
in recliner chair.
Appetite: Fair, patient states he is getting his appetite back. Encouraged protein in diet.
Pressure redistribution devices in place: On air mattress, recommended air overlay to RN when transferred to floor.
Plan: Adaptic and dry dressing applied to R foot, confirmed with Dr. Carlson and made aware of the above. Foams applied to heels and sacrum. Maintained patient's own lambs wool on R great toe and spacer on L 4-5th toe.
Updated nurse Juana, care plan and will follow as needed.
Note to case management of equipment requested for discharge: TBD.
Recommend follow up with [facility] and wound care center upon discharge.
[2024-04-26] MEDS: ASPIR LOW (ENTERIC COATED) 81 MG PO (11:08)
[2024-04-26] MEDS: HEPARIN 5000 UNITS SC ×2 (11:08→20:25)
--- NOTE | 2024-04-26 11:15 | W.PN.CD ---
Today's Communication / Plan
-
- Switch IV Amiodarone to PO
- Discontinue Verapamil - held at admission.
- Addition of Ranexa as outpatient due to contrast and Cr bump.
- stable from cardiac stand point.
Impression / Plan
-
Impression/Plan: 83-year-old gentleman with hypertension, diabetes, severe COPD, TIA, coronary disease s/p CABG x2 (FERNÁNDEZ to LAD, SVG to OM), ischemic cardiomyopathy (LVEF 20%), NYHA class III chronic HFpEF, nonsustained ventricular tachycardia with
long VT episodes, frequent PVCs in bigeminy on adequate guideline directed medical cardiomyopathy presented with ventricular tachycardia/syncope.
#Ventricular tachycardia/PVC's/syncope
-Acute.
-PVC's = 40%.
-ICD interrogation shows slow VT, below treatment threshold.
-Started on amiodarone. Verapamil discontinued.
-Already was on verapamil and metoprolol with recurrent VT and PVC.
-Echo 04/25 -20-25% - mod to severe MR.
-Cath 04/25- severe CAD but no new lesions.
-ICD was reprogrammed to atrial preferred pacing (attempt to supress PVCs) and to add a VT zone. Currently 3 zones now:
-150 to 168 bpm = monitor zone.
-168-188 bpm = fast VT zone with treatment with ATP followed by shock.
->188 bpm -VF zone.
-With restart of Amiodarone, can consider addition of Ranexa for added effect. If there is recurrent VT noted, can plan for VT ablation.
#CAD
-Chronic.
-S/P remote 2V CABG (FERNÁNDEZ to LAD, SVG to OM).
-Continue aspirin, metoprolol rosuvastatin.
-Cardiac catheterization 04/25 stable but severe multivessel CAD.
#ICMO
-Chronic.
-LVEF 20%.
-S/P ICD.
-Continue metoprolol, dapagliflozin.
-No spironolactone due to prior hyperkalemia.
-Off the verapamil now and on Amiodarone.
#HFrEF
-Chronic, NYHA class III.
-Appears euvolemic.
#COPD
-Chronic.
-Continue home bronchodilators.
#HTN
-Chronic, stable.
#HLD
-Chronic, stable.
Subjective/Interval History:
No acute events.
No subjective complaints.
He denies chest pain.
DATA:
ECHO 04/25/24;
Left ventricle is mildly dilated with anteroseptal, septal, infero septal and
inferior akinesis and severely reduced left ventricular systolic function. Left
ventricular ejection fraction is 20-25%
Thickened aortic valve with restricted leaflet motion consistent with aortic
sclerosis without stenosis. Mild aortic regurgitation.
Focal anterior leaflet calcification. Moderate to severe mitral regurgitation.
Compared to prior study of 02/23/2024, wall motion is similar, LVEF remains
severely depressed and mitral regurgitation is now moderately severe.
Echocardiogram, 02/23/2024:
CONCLUSIONS
Severely reduced left ventricular function with estimate ejection fraction of
20 to 25%Mild aortic regurgitation.
Mild tricuspid regurgitation.
Aortic sclerosis. There appears to be restricted leaflet motion but mean
gradient peak gradient only 9 mmHg
Mild aortic regurgitation
Mild to moderate mitral regurgitation
Mild tricuspid regurgitation.
Compared to the previous echo report from 03/12/2020 the patient's had a marked
reduction in left ventricular function with no wall motion abnormalities.
Previous echo report with normal left ventricular function and an ejection
fraction of 60 to 65%.
Cardiac Catheterization, 03/16/2024:
CONCLUSIONS:
1. Right dominant circulation with left main coronary artery stenosis, 90% lesion in the proximal LAD, 70% lesion in the mid LAD, diffusely diseased mid and distal LAD with a large, parallel second diagonal, and 80% lesion in OM1, flush occluded OM
2 supplied by collaterals from the diagonal and a chronic total occlusion of the mid RCA with right to right collaterals from a large RV marginal status post prior coronary artery bypass grafting (patent FERNÁNDEZ to large D2, patent SVG to diffusely
diseased OM 2 branches with mild graft degeneration of the proximal and midportion somewhat responsive to nitroglycerin).
2. Mildly elevated filling pressures (PCWP = 16 mmHg, LVEDP = 16 mmHg at 72.6 kg) with evidence of diastolic dysfunction (A wave to 30 mmHg), likely appropriate given degree of LV dysfunction.
3. Severe left ventricular dysfunction on echocardiography, LVEF = 20-25%.
Cath 04/25/24:
1. Right dominant circulation with a 80% lesion in the mid to distal portion of the left main coronary artery (seen in the [place] cranial view), a 90% lesion in the mid LAD spanning the origin of a large second diagonal followed by diffuse disease of
the entire mid and distal LAD, 60% lesion in the proximal circumflex, a 60% lesion in the proximal third of OM 2, a chronic total occlusion of the lower branch of OM 2 and a chronic total occlusion of the mid RCA (approximately 18 mm long, blunt
cap) Status post two-vessel bypass with a patent FERNÁNDEZ to D2 and a patent SVG to the lower branch of OM 2 with trivial outflow.
2. Normal filling pressures (LVEDP = 12 mmHg).
3. In general, stable coronary artery disease from prior cardiac catheterization. No specific nidus for new ventricular tachycardia.
CXR, 04/23/2024:
IMPRESSION:
Small left pleural effusion. Patchy parenchymal opacity within the left lower lung, likely atelectasis.
Right chest wall defibrillator with lead tips over the right atrium and the right ventricle, stable. No evidence for pneumothorax.
Physical Exam
Vital Signs/Labs
Vital Signs
Temp Pulse Resp BP Pulse Ox
97.7 F 73 18 80/51 94
04/26/24 03:54 04/26/24 10:15 04/26/24 08:47 04/26/24 10:09 04/26/24 08:47
04/25/24 04/26/24 04/27/24
06:59 06:59 06:59
Actual Weight 68.8 kg
04/26/24 03:53
04/26/24 03:53
Magnesium 1.7 mg/dl (1.6-2.3) 04/25/24 04:02
LAB Results
04/23/24 04/23/24 04/23/24
14:42 17:34 22:44
Troponin I 0.012 Cancelled Cancelled
04/23/24 04/24/24 04/24/24
23:11 04:01 10:00
Troponin I 0.016 0.018 Cancelled
Physical Exam
Constitutional: No acute distress and Comfortable
EENT: Anicteric and Moist mucous membranes
Cardiovascular: Rhythm & rate is regular, Pedal edema is absent, JVD pressure is normal and Systolic murmur present
Respiratory: Respiratory effort normal, Lungs clear to auscul., Crackles Absent and Rhonchi Absent
GI: Soft, Non tender and Normal bowel sounds
Neuro/Psych: Alert, Oriented and AO x 3
Other: Cath Site
Data Reviewed
-
Date of Service: April 26, 2024
Medical Decision Making: Reviewed Test Results and Independent Historian Assessment
EKG: Tracing Personally Visualized and interpreted
Echo: Report Reviewed by me
Medical Tests (PFT, Pathology etc): Image Personally Visualized and interpreted
Labs: Labs Reviewed by me
Old Records: Reviewed
--- NOTE | 2024-04-26 11:25 | CM ---
Addendum entered by Angélica Foster 04/26/24 14:15:
Telephone call to [facility] Admission who states they can accept Mr. Collier for SNF/Rehab. tomorrow if medically stable. Met with Mr. and Mrs. Collier to review SNF/Rehab. at [facility]. They are agreeable to SNF/Rehab. at [facility]. Reviewed
transportation with them and they are agreeable to a wheelchair van. They are aware of out of pocket cost. Updated attending physician. Medical work-up in progress. The report number is [phone]) and fax number is ([phone]) The
discharge plan is to go to [facility] when medically stable.
Original Note:
Reviewed chart. Met with Mr. and Mrs. Collier to review discharge plans. Reviewed recommendations from therapy. Reviewed SNF/Rehabs. in the area. Family would like to explore [facility] to see if they can accept him for SNF/Rehab. Telephone call
to [facility] Admission to make the referral. Referral sent. Awaiting decision from [facility] regarding ability to accept. Medical work-up in progress. The discharge plan is to go to SNF/Rehab. if he is agreeable and bed available at [facility] when medically stable.
--- NOTE | 2024-04-26 11:41 | PN.CDI ---
CDI
- -
CDI:
Physician Documentation Request
Admit Date: 04/23/24 16:26
Dear Doctor Aldo,
Clinical Indicators:
Patient admitted with ventricular tachycardia.
04/26 [facility] RN skin/wound assessment: Sacrum Stage 1 Pressure Injury, POA
Appearance: non blanchable red
Treatment: Silicone foam dressing
Physician documentation of the type and location of wounds is required for compliant documentation. Based on the above clinical findings and your assessment, please provide the following in your progress note:
1. Location of the ulcer/wound, including laterality.
2. Type (etiology) of ulcer/wound:
- Diabetic ulcer
- Arterial (ischemic) ulcer
- Traumatic wound
- Venous stasis ulcer
- Pressure (decubitus) ulcer
- Non-healing surgical wound
- Other
- Unable to determine
3. If a pressure ulcer, please also include the stage* of the ulcer:
- Stage 1 - Skin intact, non-blanchable redness
- Stage 2 - Partial thickness loss of dermis, includes intact or open blister
- Stage 3 - Full thickness tissue not including bone, tendon or muscle
- Stage 4 - Full thickness tissue loss, including exposed bone, tendon or muscle
- Unstageable - Full thickness loss in which the base of the ulcer is covered by slough (yellow, monge, marr, green or brown) and/or eschar (monge, brown or black) in the wound bed.
- Unable to determine
Use of terms such as suspected, likely, concern for, or probable (associated with a specific diagnosis that is being evaluated, monitored, or treated as if it exists) are acceptable and can be coded in the inpatient setting, when documented at the
time of discharge.
Thank you,
Helen Beltran RN BSN
CDI Specialist
available via tiger text
Please use your independent medical judgment in providing your response.
*Source: National Pressure Ulcer Advisory Panel (NPUAP)
--- NOTE | 2024-04-26 12:11 | W.PN.HOSP.TC ---
Addendum entered and electronically signed by Chris Carlson MD 04/26/24 12:34:
#Sacrum Stage 1 Pressure Injury, POA
#R medial foot wound
cont wound care
Original Note:
Today's Communication/Plan
-
US RUQ
possible d/c afterwards
Assessment / Plan
Assessment / Plan
83yo M with PMHx of CAD s/p CABG, slow VT s/p ICD, DM, COPD, Urinary urgency, HLD came with recurrent episodes of 'syncope' described as staring spell lasting for appr 20-30sec. ICD interrogation in ED showed VT without reaching threshold for
shockCardiology did R/L heart catheterization without new focus for VT. Verapamil stopped, Metoprolol d/c. Neurologist recommended Depakot. Patient will need close monitoring for LFT upon d/c
A/P:
#VT with slow response
#CAD s/p CABG
#Chronic HFrEF
#Moderate-severe MR
s/p cath on 04/25/24 by cardiology- cont GDMT, might need ablation eventually. Cont Amiodarone. No stent placed as patient w/o chest pain
Verapamil stopped
Toprol decreased
Echo: EF 20-25%, MODERATE-SEVERE MR
#Syncopal episodes with staring spell
#Hypotension
Head CT without acute findings
EEG without signs of seizures
neurologist eval: empiric Depakote
#DM type 2 with neuropathy
hold oral hypoglycemics
Insulin SS, DM diet, AccuCheck
HgbA1c 7.0%
no concern for hypoglycemia episodes at this time
#Transaminitis
#Elevated lk phos
improving
Most likely 2/2 hypotension
Advised to repeat LFT with PCP in 1 week upon d/c due to new Amiodarone and Depakote
US RUQ with doppler pending
#COPD, not in exacerbation
#PAD s/p LE stents
cont home meds
DVT ppx hep
Full code
I have spent at least 37min reviewing chart, test results and providing direct patient care
Anticipated Discharge: Within 24 hours
Subjective/Interval History
-
Date of Service: April 26, 2024
Objective Data
-
Labs:
Laboratory Results
04/26/24
03:53
WBC 7.9
Hgb 12.7 L
Hct 37.9 L
Plt Count 174
Sodium 135
Potassium 4.5
Chloride 102
Carbon Dioxide 25
BUN 22 H
Creatinine 1.2
Glucose 126 H
Calcium 8.4
Total Bilirubin 0.5
AST 108 H
ALT 112 H
Alkaline Phosphatase 130 H
Vital Signs:
Vital Signs
Temp Pulse Resp BP Pulse Ox
94.0 F L 66 18 96/60 90
04/26/24 11:44 04/26/24 12:03 04/26/24 11:44 04/26/24 12:03 04/26/24 11:44
I&O
04/25/24 04/26/24 04/27/24
06:59 06:59 06:59
Intake Total 1129.8 / 1129.8 480 / 480
Output Total 200 / 200 1000 / 1000 350 / 350
Balance -200 / -200 129.8 / 129.8 130 / 130
Review of Systems
-
History Source: Patient
All other systems: Reviewed and negative
Physical Exam
-
General: Well Developed, Well Nourished and No Apparent Distress
HEENT: Normocephalic
Respiratory: Clear to Auscultation
Cardiac: Regular Rhythm
GI: Soft, Nontender and Nondistended
Genito-urinary: No Costovertebral Tender
Musculoskeletal: No Clubbing, No Cyanosis and No Edema
Skin: Warm
Neuro: Awake, Alert, Oriented and AO x 3
Psych: Calm
[2024-04-26] MEDS: PACERONE 200 MG PO (12:19)
[2024-04-26] MEDS: FLUSH (NSS) 1 FLUSH IV (12:20)
[2024-04-26] MEDS: HYDROPHOR 1 APPLIC TOPICAL (12:20)
[2024-04-26 13:26] LABS: Glucose - Point of Care 188 mg/dl (70-99)
[2024-04-26 17:36] LABS: Glucose - Point of Care 162 mg/dl (70-99)
[2024-04-26] MEDS: NOVOLOG FLEXPEN-LOW RESISTANCE 1 UNITS SC (17:52)
[2024-04-26] MEDS: CRESTOR 40 MG PO (18:33)
[2024-04-26] MEDS: TOPROL XL PO (18:33)
[2024-04-26 21:37] LABS: Glucose - Point of Care 150 mg/dl (70-99)
--- NOTE | 2024-04-26 21:38 | PTCARENOTE ---
Received patient at change of shift. Patient resting in bed, aroused to sound. Oriented x 3. Left radial dressing clean, dry, and intact. BP 93/48, A-paced 69-72, 95% on room air. Discussed care plan for the night. Patient verbalized understanding.
Call mtz within reach.
[2024-04-26] MEDS: DEPAKOTE ER (24 HR RELEASE) 250 MG PO (22:48)
[2024-04-27] VITALS (17 sets, daily range): BP systolic 74–135; BP diastolic 43–119; PULSE 73–87; O2SAT 98; BMI 20.4
[2024-04-27 04:36] LABS: ALT (SGPT) 141 U/L (0-50); AST (SGOT) 154 U/L (17-59); Albumin 2.9 g/dl (3.5-5.0); Alkaline Phosphatase 150 U/L (38-126); Direct Bilirubin 0.2 mg/dl (0.0-0.4); Total Bilirubin 0.5 mg/dl (0.2-1.3); Total Protein 5.2 g/dl (6.3-8.2)
[2024-04-27 07:38] LABS: Glucose - Point of Care 186 mg/dl (70-99)
[2024-04-27] MEDS: SPIRIVA RESPIMAT 2.5 MCG 2 PUFF INH (07:54)
--- NOTE | 2024-04-27 08:33 | CON.GI ---
Addendum entered and electronically signed by Chaya Reed MD 04/27/24 13:07:
I saw and examined the patient.
The BRAND MGR's note was reviewed and I agree with the note.
Comment: This is a 83-year-old gentleman with hypertension, diabetes, severe COPD, TIA, coronary disease s/p CABG x2 (FERNÁNDEZ to LAD, SVG to OM), ischemic cardiomyopathy (LVEF 20%), HFpEF, nonsustained ventricular tachycardia with long VT episodes s/p
AICD, moderate to severe MR who presented on 04/23 with syncope who we were consulted for abnormal LFTs with mostly transaminase elevation and mild alkaline phosphatase elevation. He currently denies any abdominal pain. No nausea or vomiting he
does have decreased appetite and complains of fatigue and weakness. He is also been evaluated by neurology for the syncope. He was started on IV amiodarone which was recently switched to oral amiodarone and ultrasound showed liver hemangioma
Dopplers were unremarkable. His LFTs 03/14/2024 were normal. His statin is currently also on hold. Patient has had quite a few recordings of low blood pressure since admission.
Assessment and plan transaminases elevation which I think is most likely multifactorial from severe CHF with EF of 20% low flow state especially given his low blood pressure recordings since admission and presentation with syncope with possible
passive congestion and also possible DILI from amiodarone doubt it is from Depakote. His IV amiodarone was switched to low-dose oral amiodarone will continue to follow his LFTs closely if they are continuing to trend down could continue the
amiodarone and hopefully will improve once his blood pressures are more stable. If they are trending up on the amiodarone may need to switch to another antiarrhythmic. Hepatitis serologies are negative INR is pending
Original Note:
Consultation
-
Date/Time Consultation Requested: 04/27/24 0700
Date/Time Consultation Performed: 04/27/24829
Requesting Provider: Diallo Carlson MD
Performing Provider: MAURICIO Castillo, Chaya Reed MD
Reason for Consultation: increased LFT's
Medical History
Chief Complaint / HPI
Chief Complaint: weakness
History of Present Illness:
Pt is a 83yo with hx VT, PVC's, HTN, DM, COPD, TIA, CAD, HFrEF, CABG, ischemic CM, recent AICD placement in February with onset of syncope on admission on 04/23. In ER device was interrogated with VT episode without AICD firing. Pt has been followed
by cardiology. He completed echo with severely reduced left ventricular systolic function and EF 20-25 % with stage I diastolic dysfunction. Aortic sclerosis without stenosis, moderate to severe MR. He also completed cath with CAD but stable
coronary disease from prior cath. Pt has also been seen by neurology to [facility] for passing out episodes partial seizure vs orthostasis related with unremarkable EEG. Pt was started on amiodarone and asked to see for rise in LFT's. Labs review
03/14- bili 0.6, AST 35, ALT 25, alk phos 83. US Doppler with no acute pathology liver hemangioma, pararenal cyst, atherosclerosis normal flow. On admission 04/23 bili 0,5, AST 136, ALT 127, alk phos 141 with persistent elevation. Pt has had
persistent hypotension with BP down as low as 70's on admission.
In review with patient he is unsure of medication changes but per PCP notes pt was started on Amiodarone in early March with balance issues, wt loss and weakness. He admits to some dizziness and fatigue. He also admits to 50 + lb wt loss
over several months to several years with some decreased appetite. He was have some nausea with some improvement with medication change and constipation with now miralax and senna added. He denies dysphagia, GERD, vomiting, abdominal pain,
diarrhea, blood or black in stools.
Past Medical History
Past Medical History: Arrhythmias (VT with long VT, PVC in bigeminy), CAD, CHF, COPD, CVA (TIA), HTN, NIDDM and Other (ischemic cardiomyopathy)
Past Surgical History: Cardiac (CABGx 2 , AICD 8.17)
Social History
Tobacco: Non-Smoker
Alcohol: None
Drug: None
Personal:
Living: With Family
Employment: Retired
Family History
Family History: Other (no family hx GI issue, liver problems)
Allergies / Home Medications
Allergy/AdvReac Type Severity Reaction Status Date / Time
Penicillins Allergy leg cramps Verified 03/22/24 08:52
as child-
pt denies
at this
time
�Medication �Instructions �Recorded
glimepiride 4 mg tablet 4 mg PO DAILY Diabetes 10/10/09
aspirin 81 mg tablet,delayed 81 mg PO DAILY Blood clot 04/22/11
release prevention/tx
dapagliflozin propanediol 10 mg 10 mg PO DAILY Diabetes 06/07/18
tablet (Farxiga)
polyvinyl alcohol-povidone (PF) 1 drp RIGHT EYE HS Eye condition 01/30/21
1.4 %-0.6 % eye drops in a
dropperette (Refresh Classic (PF))
metformin 500 mg tablet 1,000 mg PO BID Diabetes 05/05/22
albuterol sulfate 90 mcg/actuation 1 inh inhalation R Q6HPRN PRN SOB 03/10/24
aerosol inhaler
omeprazole 20 mg tablet,delayed 20 mg PO Q48H 03/10/24
release
umeclidinium 62.5 mcg/actuation 1 inh inhalation R DAILY 03/10/24
blister powder for inhalation Lung/Breathing Issues
(Incruse Ellipta)
rosuvastatin 40 mg tablet 40 mg PO QPM #0 tabs 03/23/24
acetaminophen 500 mg tablet 1,000 mg PO Q6HPRN PRN mild pain 04/23/24
(Tylenol Extra Strength)
amiodarone 200 mg tablet 200 mg PO QPM Heart 04/23/24
Disease/Condition
metoprolol succinate 25 mg 25 mg PO QPM Blood Pressure 04/23/24
tablet,extended release 24 hr
oxybutynin chloride 5 mg 5 mg PO DAILY 04/23/24
tablet,extended release 24 hr
repaglinide 2 mg tablet 2 mg PO QPM 04/23/24
verapamil 120 mg tablet,extended 120 mg PO DAILY 04/23/24
release
Review of Systems
-
History Source: Patient
Constitutional: Reports Weight Loss and Fatigue
EENT: Reports No Symptoms
Respiratory: Reports No Symptoms
Cardiac: Reports Syncope (on admission )
Abdomen/GI: Reports Nausea and Constipated
: Reports No Symptoms
Musculoskeletal: Reports Edema
Skin: Reports No Symptoms
Neurological: Reports Dizzy and Weakness
Endocrine: Reports No Symptoms
Hematologic/Lymphatic: Reports No Symptoms
Vital Signs
Temp Pulse Resp BP Pulse Ox
97.6 F 77 66 92/44 95
04/27/24 07:32 04/27/24 07:36 04/27/24 07:55 04/27/24 07:36 04/27/24 07:55
Physical Exam
Exam
General: Well Developed, Well Nourished and No Apparent Distress
HEENT: Normocephalic and Anicteric
Respiratory: Clear
Cardiac: Regular Rhythm and Peripheral Edema
GI: Soft, Non Tender and Non Distended
Musculoskeletal: No Clubbing and No Cyanosis
Skin: Warm and Dry
Neuro: Awake, Alert and AO x 3
Psych: Calm
Results
WBC 7.9 10^3/uL (4.8-10.8) 04/26/24 03:53
Hgb 12.7 g/dL (13.0-18.0) L 04/26/24 03:53
Hct 37.9 % (39.0-52.0) L 04/26/24 03:53
MCV 90.0 fL (80.0-94.0) 04/26/24 03:53
Plt Count 174 10^3/uL (130-400) 04/26/24 03:53
Absolute Neuts (auto) 5.6 10^3/uL (1.4-6.5) 04/26/24 03:53
Sodium 135 mmol/L (135-145) 04/26/24 03:53
Potassium 4.5 mmol/L (3.5-5.1) 04/26/24 03:53
Chloride 102 mmol/L (98-107) 04/26/24 03:53
Carbon Dioxide 25 mmol/L (22-30) 04/26/24 03:53
BUN 22 mg/dl (9-20) H 04/26/24 03:53
Creatinine 1.2 mg/dL (0.7-1.3) 04/26/24 03:53
Calcium 8.4 mg/dl (8.4-10.2) 04/26/24 03:53
Total Bilirubin 0.5 mg/dl (0.2-1.3) 04/27/24 03:47
AST 154 U/L (17-59) H 04/27/24 03:47
ALT 141 U/L (0-50) H 04/27/24 03:47
Alkaline Phosphatase 150 U/L (38-126) H 04/27/24 03:47
Hepatitis A IgM Ab Negative (Negative) 04/26/24 03:53
Hep Bs Antibody Negative 04/26/24 03:53
Hep B Core Total Ab Negative (Negative) 04/26/24 03:53
Hepatitis C Antibody Negative (Negative) 04/26/24 03:53
Diagnostic Image Results:
04/26/24 US abd with doppler
1). There is no evidence of acute pathology.
2). 1.4 cm echogenic mass in the right lobe of the liver most consistent with hemangioma.
3). 2 cm right parapelvic renal cyst
4). Atherosclerosis.
04/26 HCT
There are no focal or acute intracranial abnormalities.
There is moderate diffuse cortical and cerebellar atrophy
Prior GI Procedures:
Colonoscopy: 11/2025 [facility] - The entire examined colon is normal.
- The examined portion of the ileum was normal.
Assessment / Plan
-
Pt is a 83yo with hx VT, PVC's, HTN, DM, COPD, TIA, CAD, HFrEF, CABG, ischemic CM, recent AICD placement in February with onset of syncope on admission on 04/23. In ER device was interrogated with VT episode without AICD firing. Pt has been followed
by cardiology. He completed echo with severely reduced left venticular systolic function and EF 20-25 % with stage I diastolic dysfunction. Aortic sclerosis without stenosis, moderate to severe MR. He also completed cath with CAD but stable
coronary disease from prior cath. Pt has also been seen by neurology to [facility] for passing out episodes partial seizure vs orthostasis related with unremarkable EEG. Pt was started on amiodarone and asked to see for rise in LFT's. Labs review
03/14- bili 0.6, AST 35, ALT 25, alk phos 83. US Doppler with no acute pathology liver hemangioma, pararenal cyst, atherosclerosis normal flow. On admission 04/23 bili 0,5, AST 136, ALT 127, alk phos 141 with persistent elevation. Pt has had
persistent hypotension with BP down as low as 70's on admission. Pt also with newly started amiodarone with use of Amiodarone gtt during admission now on oral.
-elevated transaminases new over last month
-syncope
-VT with recent AICD placement in February
-moderate to severe MR
-liver hemangioma per Us
-nausea
-wt loss
-constipation
other med problems:
-DM
-COPD
-TIA
-CAD prior CABG
-ischemic CM
-HFrEf -recent echo 20-25%
-TIA
PLAN:
etiology of LFT elevation with syncope on admission related to hypotension- low flow state/(BP to 70's but typical pattern with higher AST/ALT), hepatic congestion, DILI with recent amiodarone(as admits to multiple other side effect- nausea, balance
issues, fatigue but typically more seen with higher doses and prolonged therapy with ALT and alk phos elevation) vs other
cont to trend labs
Amiodarone now oral dosing, statin on hold
pt also stated new Depakote but started after rise in LFT's with first dose 04/26
US doppler as noted
hepatitis panel neg 04/26
maintain adequate perfusion
add INR for liver synthetic function
avoid hepatotoxic medications
cont miralax and senna with constipation
etiology of wt loss related to cardiac disease vs other if continued wt loss consider OP CT
will review with Dr. Reed for further recs
-
-
Thank you for consultation and allowing me to participate in the patient's care. Please call the process controls technician GI physician during the after hours with any questions or concerns.
--- NOTE | 2024-04-27 08:44 | W.PN.HOSP.TC ---
Today's Communication/Plan
-
FOllow LFT
cardio reeval for amio, GI consult
Hold statin
Laxatives
Assessment / Plan
Assessment / Plan
83yo M with PMHx of CAD s/p CABG, slow VT s/p ICD, DM, COPD, Urinary urgency, HLD came with recurrent episodes of 'syncope' described as staring spell lasting for appr 20-30sec. ICD interrogation in ED showed VT without reaching threshold for
shockCardiology did R/L heart catheterization without new focus for VT. Verapamil stopped, Metoprolol d/c. Neurologist recommended Depakote. LFT increased since Amiodarone load
A/P:
#Transaminitis
#Elevated alk phos
#Concern for DILI vs hypotension
Hepatitis panel neg
Cardiology to reeval antiarrhythmic
GI consult
Advised to repeat LFT with PCP in 1 week upon d/c due to new Amiodarone and Depakote
US RUQ with Doppler unremarkable for PVT, No CBD dilation, showed normal gall bladder
Hold statin
#VT with slow response
#CAD s/p CABG
#Chronic HFrEF
#Moderate-severe MR
s/p cath on 04/25/24 by cardiology- cont GDMT, might need ablation eventually. Cont Amiodarone. No stent placed as patient w/o chest pain
Verapamil stopped
Toprol decreased
Echo: EF 20-25%, MODERATE-SEVERE MR
#Syncopal episodes with staring spell
#Hypotension
Head CT without acute findings
EEG without signs of seizures
neurologist eval: empiric Depakote
#Constipation
laxatives
#DM type 2 with neuropathy
hold oral hypoglycemics
Insulin SS, DM diet, AccuCheck
HgbA1c 7.0%
no concern for hypoglycemia episodes at this time
#COPD, not in exacerbation
#PAD s/p LE stents
cont home meds
#Liver hemangioma
#R renal cyst
no f/u advised
DVT ppx hep
Full code
I have spent at least 57min reviewing chart, test results and providing direct patient care
Anticipated Discharge: 24 - 48 hours
Subjective/Interval History
-
Date of Service: April 27, 2024
Objective Data
-
Labs:
Laboratory Results
04/27/24
03:47
Total Bilirubin 0.5
AST 154 H
ALT 141 H
Alkaline Phosphatase 150 H
Vital Signs:
Vital Signs
Temp Pulse Resp BP Pulse Ox
97.6 F 77 66 92/44 95
04/27/24 07:32 04/27/24 07:36 04/27/24 07:55 04/27/24 07:36 04/27/24 07:55
I&O
04/26/24 04/27/24 04/28/24
06:59 06:59 06:59
Intake Total 1129.8 / 1129.8 480 / 480
Output Total 1000 / 1000 725 / 725
Balance 129.8 / 129.8 -245 / -245
Review of Systems
-
History Source: Patient
All other systems: Reviewed and negative
Constitutional: Reports Sleep Disturbance
Abdomen/GI: Reports Constipated
Physical Exam
-
General: No Apparent Distress
HEENT: Normocephalic, Atraumatic and Moist Mucous Membranes
Respiratory: Clear to Auscultation
Cardiac: S1/S2
GI: Soft, Nontender and Nondistended
Genito-urinary: No Costovertebral Tender
Musculoskeletal: No Clubbing, No Cyanosis, Edema, Right Lower Extrem and Edema, Left Lower Extrem
Skin: Warm
Neuro: Awake, Alert, Oriented and AO x 3
Psych: Calm
[2024-04-27] MEDS: HEPARIN 5000 UNITS SC ×2 (09:16→19:26)
[2024-04-27] MEDS: NOVOLOG FLEXPEN-LOW RESISTANCE 1 UNITS SC ×3 (09:16→17:33)
[2024-04-27] MEDS: HYDROPHOR 1 APPLIC TOPICAL (09:17)
[2024-04-27] MEDS: MIRALAX 17 GRAMS PO (09:17)
[2024-04-27] MEDS: ASPIR LOW (ENTERIC COATED) 81 MG PO (09:17)
[2024-04-27] MEDS: PACERONE 200 MG PO (09:17)
--- NOTE | 2024-04-27 09:44 | PTCARENOTE ---
Assumed care of pt from prev nsg shift; Pt AAOx3 w/no c/o CP or SOB. Pt reporting some abd 'discomfort' this AM. Unable to rate, states he 'has an upset stomach & metallic taste in his mouth'. Pt believes this is due to new PO Amio. Pt also states
he 'doesn't feel well bec he didn't sleep well last night'; pt slept in the recliner overnight. Pt's BP low this AM 92/44 , which has been t/o this admission. HR in the 60's. Pt is 100% A paced on telemetry monitoring. Discussed plan of care w/new
GI consult & that D/C for today may be delayed. Pt verbalized understanding but appears to be anxious & mildy upset. Emotional support provided. Plan of care ongoing.
--- NOTE | 2024-04-27 10:57 | W.PN.CD ---
Today's Communication / Plan
-
he is s/p IV amiodarone
-statin has been stopped
-currently on PO amiodarone 200mg daily
-if LFT continue to rise, will need to discuss alternative AAD with EP
Impression / Plan
-
Impression/Plan: 83-year-old gentleman with hypertension, diabetes, severe COPD, TIA, coronary disease s/p CABG x2 (FERNÁNDEZ to LAD, SVG to OM), ischemic cardiomyopathy (LVEF 20%), NYHA class III chronic HFpEF, nonsustained ventricular tachycardia with
long VT episodes, frequent PVCs in bigeminy on adequate guideline directed medical cardiomyopathy presented with ventricular tachycardia/syncope.
# Abnormal LFT: concern for medication toxicity
-he is s/p IV amiodarone
-statin has been stopped
-currently on PO amiodarone 200mg daily
-if LFT continue to rise, will need to discuss alternative AAD with EP
#Ventricular tachycardia/PVC's/syncope
-Acute.
-PVC's = 40%.
-ICD interrogation shows slow VT, below treatment threshold.
-back on PO amiodarone. Verapamil discontinued.
-Already was on verapamil and metoprolol with recurrent VT and PVC.
-Echo 04/25 -20-25% - mod to severe MR.
-Cath 04/25- severe CAD but no new lesions.
-ICD was reprogrammed to atrial preferred pacing (attempt to supress PVCs) and to add a VT zone. Currently 3 zones now:
-150 to 168 bpm = monitor zone.
-168-188 bpm = fast VT zone with treatment with ATP followed by shock.
->188 bpm -VF zone.
-With restart of Amiodarone, can consider addition of Ranexa for added effect. If there is recurrent VT noted, can plan for VT ablation.
#CAD
-Chronic.
-S/P remote 2V CABG (FERNÁNDEZ to LAD, SVG to OM).
-Continue aspirin, metoprolol rosuvastatin.
-Cardiac catheterization 04/25 stable but severe multivessel CAD.
#ICMO
-Chronic.
-LVEF 20%.
-S/P ICD.
-Continue metoprolol, dapagliflozin. GDMT limited by hypotension.
-No spironolactone due to prior hyperkalemia.
-Off the verapamil now and on Amiodarone.
#HFrEF: chronic
-Chronic, NYHA class III.
-Appears euvolemic.
#COPD
-Chronic.
-Continue home bronchodilators.
#HTN
-Chronic, stable.
#HLD
-Chronic, stable.
Subjective/Interval History:
No more VT overnight.
DATA:
ECHO 04/25/24;
Left ventricle is mildly dilated with anteroseptal, septal, infero septal and
inferior akinesis and severely reduced left ventricular systolic function. Left
ventricular ejection fraction is 20-25%
Thickened aortic valve with restricted leaflet motion consistent with aortic
sclerosis without stenosis. Mild aortic regurgitation.
Focal anterior leaflet calcification. Moderate to severe mitral regurgitation.
Compared to prior study of 02/23/2024, wall motion is similar, LVEF remains
severely depressed and mitral regurgitation is now moderately severe.
Echocardiogram, 02/23/2024:
CONCLUSIONS
Severely reduced left ventricular function with estimate ejection fraction of
20 to 25%Mild aortic regurgitation.
Mild tricuspid regurgitation.
Aortic sclerosis. There appears to be restricted leaflet motion but mean
gradient peak gradient only 9 mmHg
Mild aortic regurgitation
Mild to moderate mitral regurgitation
Mild tricuspid regurgitation.
Compared to the previous echo report from 03/12/2020 the patient's had a marked
reduction in left ventricular function with no wall motion abnormalities.
Previous echo report with normal left ventricular function and an ejection
fraction of 60 to 65%.
Cardiac Catheterization, 03/16/2024:
CONCLUSIONS:
1. Right dominant circulation with left main coronary artery stenosis, 90% lesion in the proximal LAD, 70% lesion in the mid LAD, diffusely diseased mid and distal LAD with a large, parallel second diagonal, and 80% lesion in OM1, flush occluded OM
2 supplied by collaterals from the diagonal and a chronic total occlusion of the mid RCA with right to right collaterals from a large RV marginal status post prior coronary artery bypass grafting (patent FERNÁNDEZ to large D2, patent SVG to diffusely
diseased OM 2 branches with mild graft degeneration of the proximal and midportion somewhat responsive to nitroglycerin).
2. Mildly elevated filling pressures (PCWP = 16 mmHg, LVEDP = 16 mmHg at 72.6 kg) with evidence of diastolic dysfunction (A wave to 30 mmHg), likely appropriate given degree of LV dysfunction.
3. Severe left ventricular dysfunction on echocardiography, LVEF = 20-25%.
Cath 04/25/24:
1. Right dominant circulation with a 80% lesion in the mid to distal portion of the left main coronary artery (seen in the [place] cranial view), a 90% lesion in the mid LAD spanning the origin of a large second diagonal followed by diffuse disease of
the entire mid and distal LAD, 60% lesion in the proximal circumflex, a 60% lesion in the proximal third of OM 2, a chronic total occlusion of the lower branch of OM 2 and a chronic total occlusion of the mid RCA (approximately 18 mm long, blunt
cap) Status post two-vessel bypass with a patent FERNÁNDEZ to D2 and a patent SVG to the lower branch of OM 2 with trivial outflow.
2. Normal filling pressures (LVEDP = 12 mmHg).
3. In general, stable coronary artery disease from prior cardiac catheterization. No specific nidus for new ventricular tachycardia.
CXR, 04/23/2024:
IMPRESSION:
Small left pleural effusion. Patchy parenchymal opacity within the left lower lung, likely atelectasis.
Right chest wall defibrillator with lead tips over the right atrium and the right ventricle, stable. No evidence for pneumothorax.
Physical Exam
Vital Signs/Labs
Vital Signs
Temp Pulse Resp BP Pulse Ox
97.6 F 77 66 92/44 95
04/27/24 07:32 04/27/24 07:36 04/27/24 07:55 04/27/24 07:36 04/27/24 07:55
04/26/24 04/27/24 04/28/24
06:59 06:59 06:59
Actual Weight 68.8 kg 68.2 kg
04/26/24 03:53
04/26/24 03:53
Magnesium 1.7 mg/dl (1.6-2.3) 04/25/24 04:02
LAB Results
04/24/24
10:00
Troponin I Cancelled
Physical Exam
Constitutional: No acute distress
EENT: Moist mucous membranes
Cardiovascular: Rhythm & rate is regular, Systolic murmur absent, Pedal edema present and JVD present
Respiratory: Respiratory effort normal and Lungs clear to auscul.
Neuro/Psych: AO x 3
Data Reviewed
-
Date of Service: April 27, 2024
EKG: Other (Tele: As, Work[employer] Senior [employer], PVC's)
Labs: Labs Reviewed by me
[2024-04-27 11:56] LABS: Glucose - Point of Care 163 mg/dl (70-99)
--- NOTE | 2024-04-27 13:59 | CM ---
Chart reviewed. Patient is independent of ADLS, lives with his in a 1 STH, 4 HOA, ambulates with a RW, but also has a SPC and rollator. Plan is for the patient to go to [facility], when medically stable. Patient will need a wheelchair
van and agreeable to make payment. CM to follow
[2024-04-27 17:19] LABS: Glucose - Point of Care 178 mg/dl (70-99)
[2024-04-27] MEDS: TOPROL XL 12.5 MG PO (17:34)
[2024-04-27] MEDS: SENOKOT-S 1 TABLET PO (19:26)
[2024-04-27] MEDS: DEPAKOTE ER (24 HR RELEASE) 250 MG PO (22:11)
[2024-04-27 22:51] LABS: Glucose - Point of Care 222 mg/dl (70-99)
[2024-04-28] VITALS (9 sets, daily range): BP systolic 86–120; BP diastolic 47–66; BMI 20.4
--- NOTE | 2024-04-28 00:36 | PTCARENOTE ---
Pt. A-paced with frequent PVC's this shift, other vitals stable. Left radial cath site CDI; no complaints of pain. Pt. refuses to sleep in bed, states it makes it difficult for him to use urinal at night; sitting in recliner. Pt. encouraged to
get into bed multiple times, assured him that staff would assist him with urinal when needed - he still refuses. Assisted with repositioning a couple of times. Pt. last observed to be sleeping.
[2024-04-28 05:00] LABS: % Basophils 0.6 % (0-2); % Eosinophils 2.8 % (0-6); % Immature Granulocytes 0.3 % (0-0.5); % Lymphocytes 27.5 % (20.5-51.1); % Monocytes 6.4 % (1.7-9.3); % Neutrophils 62.4 % (42.2-75.2); Absolute Eosinophils 0.2 10^3/uL (0-0.7); Absolute Lymphocytes 1.9 10^3/uL (1.2-3.4); Absolute Monocytes 0.4 10^3/uL (0.1-0.6); Absolute Neutrophils 4.3 10^3/uL (1.4-6.5); Hematocrit 40.1 % (39.0-52.0); Hemoglobin 13.4 g/dL (13.0-18.0); Mean Corp Hgb Conc. 33.4 g/dL (33.0-37.0); Mean Corpuscular Hgb 30.7 pg (27.0-31.0); Mean Platelet Volume 11.2 fL (7.4-10.4); Nucleated Red Blood Cells % 0 % (-); Platelet Count 156 10^3/uL (130-400); Red Blood Cell Count 4.36 10^6/uL (4.70-6.10); Red Cell Dist. Width 15.6 % (11.5-14.5); White Blood Cell Count 6.9 10^3/uL (4.8-10.8)
[2024-04-28 05:08] LABS: INR 1.09; PT 14.1 Sec (11.4-14.6)
[2024-04-28 05:23] LABS: ALT (SGPT) 135 U/L (0-50); AST (SGOT) 117 U/L (17-59); Albumin 3.1 g/dl (3.5-5.0); Alkaline Phosphatase 154 U/L (38-126); Blood Urea Nitrogen 30 mg/dl (9-20); Calcium 8.6 mg/dl (8.4-10.2); Carbon Dioxide 27 mmol/L (22-30); Chloride 102 mmol/L (98-107); Estimated Creatinine Clearance 49 ml/min; Glucose 163 mg/dl (70-99); Magnesium 2.3 mg/dl (1.6-2.3); Potassium 4.8 mmol/L (3.5-5.1); Sodium 137 mmol/L (135-145); Total Bilirubin 0.5 mg/dl (0.2-1.3); Total Protein 5.6 g/dl (6.3-8.2); eGFR > 60.00
[2024-04-28 07:50] LABS: Glucose - Point of Care 143 mg/dl (70-99)
[2024-04-28] MEDS: ASPIR LOW (ENTERIC COATED) 81 MG PO (07:51)
[2024-04-28] MEDS: PACERONE 200 MG PO (07:52)
[2024-04-28] MEDS: HEPARIN 5000 UNITS SC ×2 (07:52→20:29)
[2024-04-28] MEDS: NOVOLOG FLEXPEN-LOW RESISTANCE SC (07:56)
[2024-04-28] MEDS: SENOKOT-S 1 TABLET PO (07:59)
[2024-04-28] MEDS: SPIRIVA RESPIMAT 2.5 MCG 2 PUFF INH (08:04)
--- NOTE | 2024-04-28 08:27 | W.PN.CD ---
Today's Communication / Plan
-
statin has been stopped
currently on PO amiodarone 200mg daily: LFT are slowly improving, continue
compression stockings
d/c planning
Impression / Plan
-
Impression/Plan: 83-year-old gentleman with hypertension, diabetes, severe COPD, TIA, coronary disease s/p CABG x2 (FERNÁNDEZ to LAD, SVG to OM), ischemic cardiomyopathy (LVEF 20%), NYHA class III chronic HFpEF, nonsustained ventricular tachycardia with
long VT episodes, frequent PVCs in bigeminy on adequate guideline directed medical cardiomyopathy presented with ventricular tachycardia/syncope.
# Abnormal LFT: concern for medication toxicity
-he is s/p IV amiodarone
-statin has been stopped
-currently on PO amiodarone 200mg daily: LFT are slowly improving, continue
#Ventricular tachycardia/PVC's/syncope
-Acute.
-PVC's = 40%.
-ICD interrogation shows slow VT, below treatment threshold.
-back on PO amiodarone. Verapamil discontinued.
-Already was on verapamil and metoprolol with recurrent VT and PVC.
-Echo 04/25 -20-25% - mod to severe MR.
-Cath 04/25- severe CAD but no new lesions.
-ICD was reprogrammed to atrial preferred pacing (attempt to supress PVCs) and to add a VT zone. Currently 3 zones now:
-150 to 168 bpm = monitor zone.
-168-188 bpm = fast VT zone with treatment with ATP followed by shock.
->188 bpm -VF zone.
-With restart of Amiodarone, can consider addition of Ranexa for added effect. If there is recurrent VT noted, can plan for VT ablation.
#CAD
-Chronic.
-S/P remote 2V CABG (FERNÁNDEZ to LAD, SVG to OM).
-Continue aspirin, metoprolol rosuvastatin.
-Cardiac catheterization 04/25 stable but severe multivessel CAD.
#ICMO
-Chronic.
-LVEF 20%.
-S/P ICD.
-Continue metoprolol, dapagliflozin. GDMT limited by hypotension.
-No spironolactone due to prior hyperkalemia.
-Off the verapamil now and on Amiodarone.
#HFrEF: chronic
-Chronic, NYHA class III.
-Appears euvolemic.
#COPD
-Chronic.
-Continue home bronchodilators.
#HTN
-Chronic, stable.
#HLD
-Chronic, stable.
Subjective/Interval History:
No more VT overnight.
DATA:
ECHO 04/25/24;
Left ventricle is mildly dilated with anteroseptal, septal, infero septal and
inferior akinesis and severely reduced left ventricular systolic function. Left
ventricular ejection fraction is 20-25%
Thickened aortic valve with restricted leaflet motion consistent with aortic
sclerosis without stenosis. Mild aortic regurgitation.
Focal anterior leaflet calcification. Moderate to severe mitral regurgitation.
Compared to prior study of 02/23/2024, wall motion is similar, LVEF remains
severely depressed and mitral regurgitation is now moderately severe.
Echocardiogram, 02/23/2024:
CONCLUSIONS
Severely reduced left ventricular function with estimate ejection fraction of
20 to 25%Mild aortic regurgitation.
Mild tricuspid regurgitation.
Aortic sclerosis. There appears to be restricted leaflet motion but mean
gradient peak gradient only 9 mmHg
Mild aortic regurgitation
Mild to moderate mitral regurgitation
Mild tricuspid regurgitation.
Compared to the previous echo report from 03/12/2020 the patient's had a marked
reduction in left ventricular function with no wall motion abnormalities.
Previous echo report with normal left ventricular function and an ejection
fraction of 60 to 65%.
Cardiac Catheterization, 03/16/2024:
CONCLUSIONS:
1. Right dominant circulation with left main coronary artery stenosis, 90% lesion in the proximal LAD, 70% lesion in the mid LAD, diffusely diseased mid and distal LAD with a large, parallel second diagonal, and 80% lesion in OM1, flush occluded OM
2 supplied by collaterals from the diagonal and a chronic total occlusion of the mid RCA with right to right collaterals from a large RV marginal status post prior coronary artery bypass grafting (patent FERNÁNDEZ to large D2, patent SVG to diffusely
diseased OM 2 branches with mild graft degeneration of the proximal and midportion somewhat responsive to nitroglycerin).
2. Mildly elevated filling pressures (PCWP = 16 mmHg, LVEDP = 16 mmHg at 72.6 kg) with evidence of diastolic dysfunction (A wave to 30 mmHg), likely appropriate given degree of LV dysfunction.
3. Severe left ventricular dysfunction on echocardiography, LVEF = 20-25%.
Cath 04/25/24:
1. Right dominant circulation with a 80% lesion in the mid to distal portion of the left main coronary artery (seen in the [place] cranial view), a 90% lesion in the mid LAD spanning the origin of a large second diagonal followed by diffuse disease of
the entire mid and distal LAD, 60% lesion in the proximal circumflex, a 60% lesion in the proximal third of OM 2, a chronic total occlusion of the lower branch of OM 2 and a chronic total occlusion of the mid RCA (approximately 18 mm long, blunt
cap) Status post two-vessel bypass with a patent FERNÁNDEZ to D2 and a patent SVG to the lower branch of OM 2 with trivial outflow.
2. Normal filling pressures (LVEDP = 12 mmHg).
3. In general, stable coronary artery disease from prior cardiac catheterization. No specific nidus for new ventricular tachycardia.
CXR, 04/23/2024:
IMPRESSION:
Small left pleural effusion. Patchy parenchymal opacity within the left lower lung, likely atelectasis.
Right chest wall defibrillator with lead tips over the right atrium and the right ventricle, stable. No evidence for pneumothorax.
Physical Exam
Vital Signs/Labs
Vital Signs
Temp Pulse Resp BP Pulse Ox
97 F 72 16 120/64 95
04/28/24 07:44 04/28/24 08:09 04/28/24 08:09 04/28/24 04:28 04/28/24 08:09
04/27/24 04/28/24 04/29/24
06:59 06:59 06:59
Actual Weight 68.1 kg
04/28/24 04:11
04/28/24 04:11
PT 14.1 Sec (11.4-14.6) 04/28/24 04:11
INR 1.09 04/28/24 04:11
Magnesium 2.3 mg/dl (1.6-2.3) 04/28/24 04:11
Physical Exam
Constitutional: No acute distress and Comfortable
EENT: Moist mucous membranes
Cardiovascular: Rhythm & rate is regular, Systolic murmur absent, Pedal edema present and JVD present
Respiratory: Respiratory effort normal and Lungs clear to auscul.
Neuro/Psych: AO x 3
Data Reviewed
-
Date of Service: April 28, 2024
EKG: Other (Tele: ApVs, PVC's)
Labs: Labs Reviewed by me
--- NOTE | 2024-04-28 10:02 | W.PN.HOSP.TC ---
Today's Communication/Plan
-
LFT in AM, if improving - most likely d/c
Assessment / Plan
Assessment / Plan
83yo M with PMHx of CAD s/p CABG, slow VT s/p ICD, DM, COPD, Urinary urgency, HLD came with recurrent episodes of 'syncope' described as staring spell lasting for appr 20-30sec. ICD interrogation in ED showed VT without reaching threshold for
shockCardiology did R/L heart catheterization without new focus for VT. Verapamil stopped, Metoprolol d/c. Neurologist recommended Depakote. LFT increased since Amiodarone load
A/P:
#Transaminitis
#Elevated alk phos
#Concern for DILI vs hypotension
Hepatitis panel neg
Cardiology continued Amio antiarrhythmic
GI consult: follow LFT
Advised to repeat LFT with PCP in 1 week upon d/c due to new Amiodarone and Depakote (unlikely offender as started while LFT already were elevated)
US RUQ with Doppler unremarkable for PVT, No CBD dilation, showed normal gall bladder
Hold statin
#VT with slow response
#CAD s/p CABG
#Chronic HFrEF
#Moderate-severe MR
s/p cath on 04/25/24 by cardiology- cont GDMT, might need ablation eventually. Cont Amiodarone. No stent placed as patient w/o chest pain
Verapamil stopped
Toprol decreased
Echo: EF 20-25%, MODERATE-SEVERE MR
#Syncopal episodes with staring spell
#Hypotension
Head CT without acute findings
EEG without signs of seizures
neurologist eval: empiric Depakote
#Constipation
laxatives
#DM type 2 with neuropathy
hold oral hypoglycemics
Insulin SS, DM diet, AccuCheck
HgbA1c 7.0%
no concern for hypoglycemia episodes at this time
#COPD, not in exacerbation
#PAD s/p LE stents
cont home meds
#Liver hemangioma
#R renal cyst
no f/u advised
DVT ppx hep
Full code
I have spent at least 57min reviewing chart, test results and providing direct patient care
Anticipated Discharge: Within 24 hours
Subjective/Interval History
-
Date of Service: April 28, 2024
Objective Data
-
Labs:
Laboratory Results
04/28/24
04:11
WBC 6.9
Hgb 13.4
Hct 40.1
Plt Count 156
PT 14.1
INR 1.09
Sodium 137
Potassium 4.8
Chloride 102
Carbon Dioxide 27
BUN 30 H
Creatinine 1.1
Glucose 163 H
Calcium 8.6
Total Bilirubin 0.5
AST 117 H
ALT 135 H
Alkaline Phosphatase 154 H
Vital Signs:
Vital Signs
Temp Pulse Resp BP Pulse Ox
97 F 72 16 97/64 95
04/28/24 07:44 04/28/24 08:09 04/28/24 08:09 04/28/24 07:47 04/28/24 08:09
I&O
04/27/24 04/28/24 04/29/24
06:59 06:59 06:59
Intake Total 480 / 480 720 / 720
Output Total 725 / 725 500 / 500
Balance -245 / -245 220 / 220
Review of Systems
-
All other systems: Reviewed and negative
Constitutional: Reports No Symptoms
Physical Exam
-
General: No Apparent Distress
HEENT: Normocephalic
Respiratory: Clear to Auscultation; Negative Wheezes, Rales or Rhonchi
Cardiac: Regular Rhythm
GI: Soft, Nontender and Nondistended
Musculoskeletal: No Clubbing, No Cyanosis and No Edema
Neuro: Awake, Alert, Oriented and AO x 3
[2024-04-28] MEDS: HYDROPHOR 1 APPLIC TOPICAL (11:19)
[2024-04-28] MEDS: NOVOLOG FLEXPEN-LOW RESISTANCE 3 UNITS SC (11:37)
[2024-04-28 11:41] LABS: Glucose - Point of Care 281 mg/dl (70-99)
--- NOTE | 2024-04-28 11:47 | CM ---
Reviewed chart. Met with and Mrs. Collier to review discharge plans. Received telephone call from [facility] to check if Mr. Collier is ready for transfer to [facility] today. TT to attending physician who state no ready today
maybe tomorrow. [facility] states need to call in a.m. to confirm bed availability. Beds are getting tight. Patient and family still agreeable to going to [facility]. Medical work-up in progress. The discharge plan is to go to [place]
[facility] when medically stable and bed available.
--- NOTE | 2024-04-28 13:34 | W.PN.GI.CBS2 ---
Today's Communication / Plan
-
trend labs
increased Miralax to bid
Assessment / Plan
-
Pt is a 83yo with hx VT, PVC's, HTN, DM, COPD, TIA, CAD, HFrEF, CABG, ischemic CM, recent AICD placement in February with onset of syncope on admission on 04/23. In ER device was interrogated with VT episode without AICD firing. Pt has been followed
by cardiology. He completed echo with severely reduced left venticular systolic function and EF 20-25 % with stage I diastolic dysfunction. Aortic sclerosis without stenosis, moderate to severe MR. He also completed cath with CAD but stable
coronary disease from prior cath. Pt has also been seen by neurology to [facility] for passing out episodes partial seizure vs orthostasis related with unremarkable EEG. Pt was started on amiodarone and asked to see for rise in LFT's. Labs review
03/14- bili 0.6, AST 35, ALT 25, alk phos 83. US Doppler with no acute pathology liver hemangioma, pararenal cyst, atherosclerosis normal flow. On admission 04/23 bili 0,5, AST 136, ALT 127, alk phos 141 with persistent elevation. Pt has had
persistent hypotension with BP down as low as 70's on admission. Pt also with newly started amiodarone with use of Amiodarone gtt during admission now on oral.
-elevated transaminases new over last month
-syncope
-VT with recent AICD placement in February
-moderate to severe MR
-liver hemangioma per Us
-nausea
-wt loss
-constipation
other med problems:
-DM
-COPD
-TIA
-CAD prior CABG
-ischemic CM
-HFrEf -recent echo 20-25%
-TIA
PLAN:
etiology of LFT elevation with syncope on admission related to hypotension- low flow state/(BP to 70's but typical pattern with higher AST/ALT), hepatic congestion, DILI with recent amiodarone(as admits to multiple other side effect- nausea, balance
issues, fatigue but typically more seen with higher doses and prolonged therapy with ALT and alk phos elevation) vs other
cont to trend labs- LFTS trending down
Amiodarone now oral dosing, statin on hold
pt also stated new Depakote but started after rise in LFT's with first dose 04/26
US doppler neg
hepatitis panel neg 04/26
maintain adequate perfusion
INR normal
avoid hepatotoxic medications
cont miralax increased to bid and senna for constipation, will give dose of lactulose now
Repeat LFTs in 1 week after DC if they are trending down could continue current medications and if they are trending up may need to switch amiodarone to a different antiarrhythmic, statin is currently on hold also
Will s/o and will be available as needed
Subjective
Subjective
Date of Service: April 28, 2024
Feeling tired but otherwise has no abdominal pain, still constipated he did have a small bowel movement today
Objective
Data Reviewed
Laboratory Data:
Laboratory Results
04/28/24 04:11
04/28/24 04:11
Laboratory Results
PT 14.1 Sec (11.4-14.6) 04/28/24 04:11
INR 1.09 04/28/24 04:11
Magnesium 2.3 mg/dl (1.6-2.3) 04/28/24 04:11
Total Bilirubin 0.5 mg/dl (0.2-1.3) 04/28/24 04:11
AST 117 U/L (17-59) H 04/28/24 04:11
ALT 135 U/L (0-50) H 04/28/24 04:11
Alkaline Phosphatase 154 U/L (38-126) H 04/28/24 04:11
Vital Signs and I&O:
Vital Signs
Temp Pulse Resp BP Pulse Ox
97.7 F 72 20 93/47 95
04/28/24 12:13 04/28/24 08:09 04/28/24 12:13 04/28/24 12:16 04/28/24 08:09
I&O
04/27/24 04/28/24 04/29/24
06:59 06:59 06:59
Intake Total 480 / 480 720 / 720
Output Total 725 / 725 500 / 500
Balance -245 / -245 220 / 220
Physical Exam
Physical Exam
Cardiology: Normal Sinus Rhythm and Murmur (systolic)
Pulmonary: Clear
GI: Soft, Non Distended, Non Tender and Normal Bowel Sounds
[2024-04-28] MEDS: DUPHALAC/CHRONULAC 30 GRAMS PO (14:03)
[2024-04-28] MEDS: MIRALAX 17 GRAMS PO (14:30)
[2024-04-28] MEDS: MIRALAX PO ×2 (14:31→20:29)
[2024-04-28 17:01] LABS: Glucose - Point of Care 178 mg/dl (70-99)
[2024-04-28] MEDS: TOPROL XL 12.5 MG PO (17:34)
[2024-04-28] MEDS: NOVOLOG FLEXPEN-LOW RESISTANCE 1 UNITS SC (17:36)
--- NOTE | 2024-04-28 18:00 | PTCARENOTE ---
Pt OOB in the recliner chair all day. Assisted to the BR with the walker and 1 assist. Pt steady but needs assistance. Denies any pain or discomfort. Room air sat 98%. Remains A paced.
[2024-04-28] MEDS: SENOKOT-S PO (20:29)
[2024-04-28 22:12] LABS: Glucose - Point of Care 189 mg/dl (70-99)
[2024-04-28] MEDS: DEPAKOTE ER (24 HR RELEASE) 250 MG PO (22:33)
[2024-04-29] VITALS (16 sets, daily range): BP systolic 87–118; BP diastolic 44–72; PULSE 73–88; O2SAT 98; BMI 20.3
--- NOTE | 2024-04-29 00:15 | PTCARENOTE ---
patient had x2 BMs this evening; one large. patient states feeling much better. patient in better spirits tonight. Apaced on tele with PVCs. bp stable. oob with minimal assistance and rolling walker. new sacral foam applied-sacrum red/blanchable.
patient eager to go to rehab. educated patient to inform Rn with any changes. call mtz within reach. calls appropriately.
[2024-04-29 04:00] LABS: ALT (SGPT) 130 U/L (0-50); AST (SGOT) 102 U/L (17-59); Alkaline Phosphatase 159 U/L (38-126); Total Bilirubin 0.4 mg/dl (0.2-1.3); Total Protein 5.5 g/dl (6.3-8.2)
[2024-04-29 04:08] LABS: Direct Bilirubin 0.2 mg/dl (0.0-0.4)
--- NOTE | 2024-04-29 04:32 | PTCARENOTE ---
CHG wipes completed. new gown. R foot dressing changed. new sacral foam. patient states sleeping well overnight. offers no complaints.
[2024-04-29] MEDS: NOVOLOG FLEXPEN-LOW RESISTANCE SC (07:55)
[2024-04-29 07:56] LABS: Glucose - Point of Care 138 mg/dl (70-99)
[2024-04-29] MEDS: PACERONE 200 MG PO (07:56)
[2024-04-29] MEDS: MIRALAX PO ×2 (07:59→19:35)
[2024-04-29] MEDS: ASPIR LOW (ENTERIC COATED) 81 MG PO (07:59)
[2024-04-29] MEDS: HEPARIN 5000 UNITS SC ×2 (08:00→19:35)
[2024-04-29] MEDS: SPIRIVA RESPIMAT 2.5 MCG 2 PUFF INH (08:02)
[2024-04-29] MEDS: SENOKOT-S PO ×2 (08:04→19:34)
[2024-04-29] MEDS: HYDROPHOR 1 APPLIC TOPICAL (08:04)
[2024-04-29 11:29] LABS: Glucose - Point of Care 210 mg/dl (70-99)
--- NOTE | 2024-04-29 11:49 | W.PN.HOSP.TC ---
Today's Communication/Plan
-
follow LFT
Assessment / Plan
Assessment / Plan
83yo M with PMHx of CAD s/p CABG, slow VT s/p ICD, DM, COPD, Urinary urgency, HLD came with recurrent episodes of 'syncope' described as staring spell lasting for appr 20-30sec. ICD interrogation in ED showed VT without reaching threshold for
shockCardiology did R/L heart catheterization without new focus for VT. Verapamil stopped, Metoprolol d/c. Neurologist recommended Depakote. LFT increased since Amiodarone load, but stable. Rehab not available until Mon as per CM
A/P:
#Transaminitis
#Elevated alk phos
#Concern for DILI vs hypotension
Hepatitis panel neg
Cardiology continued Amio antiarrhythmic
GI consult: follow LFT
Advised to repeat LFT with PCP in 1 week upon d/c due to new Amiodarone and Depakote (unlikely offender as started while LFT already were elevated)
US RUQ with Doppler unremarkable for PVT, No CBD dilation, showed normal gall bladder
Hold statin
#VT with slow response
#CAD s/p CABG
#Chronic HFrEF
#Moderate-severe MR
s/p cath on 04/25/24 by cardiology- cont GDMT, might need ablation eventually. Cont Amiodarone. No stent placed as patient w/o chest pain
Verapamil stopped
Toprol decreased
Echo: EF 20-25%, MODERATE-SEVERE MR
#Syncopal episodes with staring spell
#Hypotension
Head CT without acute findings
EEG without signs of seizures
neurologist eval: empiric Depakote
#Constipation
laxatives
#DM type 2 with neuropathy
hold oral hypoglycemics
Insulin SS, DM diet, AccuCheck
HgbA1c 7.0%
no concern for hypoglycemia episodes at this time
#COPD, not in exacerbation
#PAD s/p LE stents
cont home meds
#Liver hemangioma
#R renal cyst
no f/u advised
DVT ppx hep
Full code
I have spent at least 37min reviewing chart, test results and providing direct patient care
Anticipated Discharge: > 48 hours
Subjective/Interval History
-
Date of Service: April 29, 2024
Objective Data
-
Labs:
Laboratory Results
04/29/24
03:05
Total Bilirubin 0.4
AST 102 H
ALT 130 H
Alkaline Phosphatase 159 H
Vital Signs:
Vital Signs
Temp Pulse Resp BP Pulse Ox
97.6 F 80 18 102/66 94
04/29/24 10:57 04/29/24 08:05 04/29/24 10:57 04/29/24 07:58 04/29/24 10:57
I&O
04/28/24 04/29/24 04/30/24
06:59 06:59 06:59
Intake Total 720 / 720 480 / 480
Output Total 500 / 500 250 / 250
Balance 220 / 220 230 / 230
Review of Systems
-
History Source: Patient
All other systems: Reviewed and negative
Physical Exam
-
General: No Apparent Distress
HEENT: Normocephalic
Respiratory: Clear to Auscultation
Cardiac: Regular Rhythm
GI: Soft, Nontender and Nondistended
Skin: Warm
Neuro: Awake, Alert, Oriented and AO x 3
Psych: Calm
--- NOTE | 2024-04-29 12:04 | W.PN.CD ---
Today's Communication / Plan
-
statin has been stopped
currently on PO amiodarone 200mg daily: LFT are slowly improving, continue
no longer on verapamil
discharge planning: follow up with us is in chart
please call us with additional questions
Impression / Plan
-
Impression/Plan: 83-year-old gentleman with hypertension, diabetes, severe COPD, TIA, coronary disease s/p CABG x2 (FERNÁNDEZ to LAD, SVG to OM), ischemic cardiomyopathy (LVEF 20%), NYHA class III chronic HFpEF, nonsustained ventricular tachycardia with
long VT episodes, frequent PVCs in bigeminy on adequate guideline directed medical cardiomyopathy presented with ventricular tachycardia/syncope.
# Abnormal LFT: concern for medication toxicity
-he is s/p IV amiodarone
-statin has been stopped
-currently on PO amiodarone 200mg daily: LFT are slowly improving, continue
#Ventricular tachycardia/PVC's/syncope
-Acute.
-PVC's = 40%.
-ICD interrogation shows slow VT, below treatment threshold.
-back on PO amiodarone. Verapamil discontinued.
-Already was on verapamil and metoprolol with recurrent VT and PVC.
-Echo 04/25 -20-25% - mod to severe MR.
-Cath 04/25- severe CAD but no new lesions.
-ICD was reprogrammed to atrial preferred pacing (attempt to supress PVCs) and to add a VT zone. Currently 3 zones now:
-150 to 168 bpm = monitor zone.
-168-188 bpm = fast VT zone with treatment with ATP followed by shock.
->188 bpm -VF zone.
-With restart of Amiodarone, can consider addition of Ranexa for added effect. If there is recurrent VT noted, can plan for VT ablation.
#CAD
-Chronic.
-S/P remote 2V CABG (FERNÁNDEZ to LAD, SVG to OM).
-Continue aspirin, metoprolol rosuvastatin.
-Cardiac catheterization 04/25 stable but severe multivessel CAD.
#ICMO
-Chronic.
-LVEF 20%.
-S/P ICD.
-Continue metoprolol, dapagliflozin. GDMT limited by hypotension.
-No spironolactone due to prior hyperkalemia.
-Off the verapamil now and on Amiodarone.
#HFrEF: chronic
-Chronic, NYHA class III.
-Appears euvolemic.
#COPD
-Chronic.
-Continue home bronchodilators.
#HTN
-Chronic, stable.
#HLD
-Chronic, stable.
Subjective/Interval History:
No more VT overnight.
DATA:
ECHO 04/25/24;
Left ventricle is mildly dilated with anteroseptal, septal, infero septal and
inferior akinesis and severely reduced left ventricular systolic function. Left
ventricular ejection fraction is 20-25%
Thickened aortic valve with restricted leaflet motion consistent with aortic
sclerosis without stenosis. Mild aortic regurgitation.
Focal anterior leaflet calcification. Moderate to severe mitral regurgitation.
Compared to prior study of 02/23/2024, wall motion is similar, LVEF remains
severely depressed and mitral regurgitation is now moderately severe.
Echocardiogram, 02/23/2024:
CONCLUSIONS
Severely reduced left ventricular function with estimate ejection fraction of
20 to 25%Mild aortic regurgitation.
Mild tricuspid regurgitation.
Aortic sclerosis. There appears to be restricted leaflet motion but mean
gradient peak gradient only 9 mmHg
Mild aortic regurgitation
Mild to moderate mitral regurgitation
Mild tricuspid regurgitation.
Compared to the previous echo report from 03/12/2020 the patient's had a marked
reduction in left ventricular function with no wall motion abnormalities.
Previous echo report with normal left ventricular function and an ejection
fraction of 60 to 65%.
Cardiac Catheterization, 03/16/2024:
CONCLUSIONS:
1. Right dominant circulation with left main coronary artery stenosis, 90% lesion in the proximal LAD, 70% lesion in the mid LAD, diffusely diseased mid and distal LAD with a large, parallel second diagonal, and 80% lesion in OM1, flush occluded OM
2 supplied by collaterals from the diagonal and a chronic total occlusion of the mid RCA with right to right collaterals from a large RV marginal status post prior coronary artery bypass grafting (patent FERNÁNDEZ to large D2, patent SVG to diffusely
diseased OM 2 branches with mild graft degeneration of the proximal and midportion somewhat responsive to nitroglycerin).
2. Mildly elevated filling pressures (PCWP = 16 mmHg, LVEDP = 16 mmHg at 72.6 kg) with evidence of diastolic dysfunction (A wave to 30 mmHg), likely appropriate given degree of LV dysfunction.
3. Severe left ventricular dysfunction on echocardiography, LVEF = 20-25%.
Cath 04/25/24:
1. Right dominant circulation with a 80% lesion in the mid to distal portion of the left main coronary artery (seen in the [place] cranial view), a 90% lesion in the mid LAD spanning the origin of a large second diagonal followed by diffuse disease of
the entire mid and distal LAD, 60% lesion in the proximal circumflex, a 60% lesion in the proximal third of OM 2, a chronic total occlusion of the lower branch of OM 2 and a chronic total occlusion of the mid RCA (approximately 18 mm long, blunt
cap) Status post two-vessel bypass with a patent FERNÁNDEZ to D2 and a patent SVG to the lower branch of OM 2 with trivial outflow.
2. Normal filling pressures (LVEDP = 12 mmHg).
3. In general, stable coronary artery disease from prior cardiac catheterization. No specific nidus for new ventricular tachycardia.
CXR, 04/23/2024:
IMPRESSION:
Small left pleural effusion. Patchy parenchymal opacity within the left lower lung, likely atelectasis.
Right chest wall defibrillator with lead tips over the right atrium and the right ventricle, stable. No evidence for pneumothorax.
Physical Exam
Vital Signs/Labs
Vital Signs
Temp Pulse Resp BP Pulse Ox
97.6 F 80 18 102/66 94
04/29/24 10:57 04/29/24 08:05 04/29/24 10:57 04/29/24 07:58 04/29/24 10:57
04/28/24 04/29/24 04/30/24
06:59 06:59 06:59
Actual Weight 68.1 kg 68 kg
04/28/24 04:11
04/28/24 04:11
PT 14.1 Sec (11.4-14.6) 04/28/24 04:11
INR 1.09 04/28/24 04:11
Magnesium 2.3 mg/dl (1.6-2.3) 04/28/24 04:11
Physical Exam
Constitutional: No acute distress and Comfortable
EENT: Moist mucous membranes
Cardiovascular: Rhythm & rate is regular, Pedal edema is absent and JVD pressure is normal
Respiratory: Respiratory effort normal and Lungs clear to auscul.
Neuro/Psych: AO x 3
Data Reviewed
-
Date of Service: April 29, 2024
EKG: Other (Tele: Ap, Vs, PVC's; no VT)
Labs: Labs Reviewed by me
--- NOTE | 2024-04-29 12:16 | PTCARENOTE ---
Pt OOB in chair, A,A+Ox3, denies pain. According to CM, bed no longer available at [facility], Dr Carlson aware and Pt aware.
[2024-04-29] MEDS: NOVOLOG FLEXPEN-LOW RESISTANCE 2 UNITS SC (12:42)
--- NOTE | 2024-04-29 13:10 | CM ---
Reviewed chart. Telephone call to [facility] to check on bed availability. [facility] states they do not have a bed available until Thursday. Will need to call [facility] on Thursday to confirm bed availability.
Met with Mr. and Mrs. Collier to review discharge plans. Updated them on status of bed at [facility]. Medical work-up in progress. The discharge plan is to go to SNF/Rehab. Hopefully at [facility] if bed available and medically stable.
[2024-04-29 17:14] LABS: Glucose - Point of Care 198 mg/dl (70-99)
[2024-04-29] MEDS: AMARYL 2 MG PO (17:16)
[2024-04-29] MEDS: TOPROL XL 12.5 MG PO (17:17)
[2024-04-29] MEDS: NOVOLOG FLEXPEN-LOW RESISTANCE 1 UNITS SC (17:18)
[2024-04-29] MEDS: DITROPAN 2.5 MG PO (19:35)
[2024-04-29] MEDS: DEPAKOTE ER (24 HR RELEASE) 250 MG PO (22:18)
[2024-04-29 22:19] LABS: Glucose - Point of Care 173 mg/dl (70-99)
--- NOTE | 2024-04-29 22:45 | PTCARENOTE ---
Pt rec'd at change of shift in recliner chair, assisted to bathroom via walker. A paced with pvc's noted. Pt refused Miralax and Senokot. Pt stated he had large bm yesterday with loose stool following it and didn't want to take anything tonight.
Resting in bed at this time with no complaints.
[2024-04-30] VITALS (10 sets, daily range): BP systolic 88–107; BP diastolic 49–94; BMI 20.2
[2024-04-30 06:37] LABS: ALT (SGPT) 82 U/L (0-50); AST (SGOT) 47 U/L (17-59); Albumin 2.9 g/dl (3.5-5.0); Alkaline Phosphatase 134 U/L (38-126); Direct Bilirubin 0.2 mg/dl (0.0-0.4); Total Bilirubin 0.5 mg/dl (0.2-1.3); Total Protein 5.2 g/dl (6.3-8.2)
[2024-04-30] MEDS: SPIRIVA RESPIMAT 2.5 MCG 2 PUFF INH (07:10)
[2024-04-30 08:08] LABS: Glucose - Point of Care 173 mg/dl (70-99)
[2024-04-30] MEDS: AMARYL 2 MG PO (09:03)
[2024-04-30] MEDS: NOVOLOG FLEXPEN-LOW RESISTANCE 1 UNITS SC ×2 (09:03→17:32)
[2024-04-30] MEDS: DITROPAN 2.5 MG PO ×2 (09:04→19:19)
[2024-04-30] MEDS: ASPIR LOW (ENTERIC COATED) 81 MG PO (09:04)
[2024-04-30] MEDS: HEPARIN 5000 UNITS SC ×2 (09:05→19:20)
[2024-04-30] MEDS: PACERONE 200 MG PO (09:06)
[2024-04-30] MEDS: HYDROPHOR 1 APPLIC TOPICAL (09:07)
[2024-04-30] MEDS: MIRALAX PO (09:14)
[2024-04-30] MEDS: SENOKOT-S PO (09:14)
[2024-04-30 11:24] LABS: Glucose - Point of Care 207 mg/dl (70-99)
--- NOTE | 2024-04-30 11:38 | PTCARENOTE ---
Received patient at change of shift. V paced on the monitor. Assisted pt OOB to chair with walker. No complaints from pt at this time, call mtz within reach.
[2024-04-30] MEDS: NOVOLOG FLEXPEN-LOW RESISTANCE 2 UNITS SC (11:44)
--- NOTE | 2024-04-30 12:44 | W.PN.HOSP.TC ---
Today's Communication/Plan
-
pending d/c on mon
LFT improved - stop following
Restart stating as outpatient with cardio assistance and close LFT follow up. Start Zetia now
Assessment / Plan
Assessment / Plan
83yo M with PMHx of CAD s/p CABG, slow VT s/p ICD and PPM, DM, COPD, Urinary urgency, HLD came with recurrent episodes of 'syncope' described as staring spell lasting for appr 20-30sec. ICD interrogation in ED showed VT without reaching threshold
for shockCardiology did R/L heart catheterization without new focus for VT. Verapamil stopped, Metoprolol d/c. Neurologist recommended Depakote. LFT increased since Amiodarone load, but stable. Rehab not available until Mon as per CM
A/P:
#Transaminitis
#Elevated alk phos
#Concern for DILI vs hypotension
Hepatitis panel neg
Cardiology continued Amio antiarrhythmic
GI consult: follow LFT
Advised to repeat LFT with PCP in 1 week upon d/c due to new Amiodarone and Depakote (unlikely offender as started while LFT already were elevated)
US RUQ with Doppler unremarkable for PVT, No CBD dilation, showed normal gall bladder
Hold statin
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
#CAD s/p CABG
#Chronic HFrEF
#Moderate-severe MR
s/p cath on 04/25/24 by cardiology- cont GDMT, might need ablation eventually. Cont Amiodarone. No stent placed as patient w/o chest pain
Verapamil stopped
Toprol decreased
Echo: EF 20-25%, MODERATE-SEVERE MR
#Syncopal episodes with staring spell
#Hypotension
Head CT without acute findings
EEG without signs of seizures
neurologist eval: empiric Depakote
#Constipation
laxatives
#DM type 2 with neuropathy
hold oral hypoglycemics
Insulin SS, DM diet, AccuCheck
HgbA1c 7.0%
no concern for hypoglycemia episodes at this time
#COPD, not in exacerbation
#PAD s/p LE stents
cont home meds
#Liver hemangioma
#R renal cyst
no f/u advised
DVT ppx hep
Full code
I have spent at least 37min reviewing chart, test results and providing direct patient care
Anticipated Discharge: 24 - 48 hours
Subjective/Interval History
-
Date of Service: April 30, 2024
Objective Data
-
Labs:
Laboratory Results
04/30/24
06:13
Total Bilirubin 0.5
AST 47
ALT 82 H
Alkaline Phosphatase 134 H
Vital Signs:
Vital Signs
Temp Pulse Resp BP Pulse Ox
98.7 F 81 18 88/51 96
04/30/24 11:03 04/30/24 12:00 04/30/24 11:03 04/30/24 10:56 04/30/24 11:03
I&O
04/29/24 04/30/24 05/01/24
06:59 06:59 06:59
Intake Total 480 / 480
Output Total 250 / 250 400 / 400
Balance 230 / 230 -400 / -400
Review of Systems
-
History Source: Patient
All other systems: Reviewed and negative
Physical Exam
-
General: No Apparent Distress
HEENT: Normocephalic
Respiratory: Clear to Auscultation
Cardiac: Irregular Rhythm
GI: Soft, Nontender and Nondistended
Skin: Warm
Neuro: Awake, Alert, Oriented and AO x 3
[2024-04-30 17:31] LABS: Glucose - Point of Care 174 mg/dl (70-99)
[2024-04-30] MEDS: TOPROL XL 12.5 MG PO (18:15)
--- NOTE | 2024-04-30 18:32 | PTCARENOTE ---
pt continues to be sr on the monitor, hr in the 70s, vss. pt offers no complaints at this time. pt has been oob to chair and tolerating well. pt educated on plan of care and pt verbalized understanding. call mtz within reach.
[2024-04-30] MEDS: SENOKOT-S 1 TABLET PO (19:19)
[2024-04-30] MEDS: MIRALAX 17 GRAMS PO (19:21)
--- NOTE | 2024-04-30 20:46 | PTCARENOTE ---
Pt rec'd at change of shift oob in recliner chair. Assisted to bathroom to void using walker. No bm x 2 days. Pt agreeable to take Senokot and Miralax tonight. A paced on telemetry, no VT noted.
Tubigrip removed. Pt resting in bed at this time. call mtz within reach.
[2024-04-30] MEDS: DEPAKOTE ER (24 HR RELEASE) 250 MG PO (21:58)
[2024-04-30 22:02] LABS: Glucose - Point of Care 200 mg/dl (70-99)
--- NOTE | 2024-04-30 22:35 | PTCARENOTE ---
Pt resting in bed no complaints at this time. repositioned on left side with pillow. Pt encouraged to reposition freq in bed to prevent further skin breakdown. call mtz within reach
[2024-05-01 05:59] VITALS: BP 110/38
[2024-05-01 06:00] VITALS: BMI 20.2
[2024-05-01] MEDS: SPIRIVA RESPIMAT 2.5 MCG 2 PUFF INH (07:03)
[2024-05-01] MEDS: NOVOLOG FLEXPEN-LOW RESISTANCE 1 UNITS SC (07:52)
[2024-05-01] MEDS: SENOKOT-S 1 TABLET PO ×2 (07:53→20:06)
[2024-05-01] MEDS: DITROPAN 2.5 MG PO ×2 (07:53→20:06)
[2024-05-01] MEDS: ZETIA 10 MG PO (07:53)
[2024-05-01 07:54] LABS: Glucose - Point of Care 160 mg/dl (70-99)
[2024-05-01] MEDS: PACERONE 200 MG PO (07:54)
[2024-05-01] MEDS: HEPARIN 5000 UNITS SC ×2 (07:55→20:06)
[2024-05-01] MEDS: AMARYL 2 MG PO (07:55)
[2024-05-01 07:56] VITALS: BP 102/81
[2024-05-01] MEDS: HYDROPHOR 1 APPLIC TOPICAL (07:57)
[2024-05-01] MEDS: ASPIR LOW (ENTERIC COATED) 81 MG PO (07:59)
[2024-05-01] MEDS: MIRALAX PO (08:14)
[2024-05-01 11:36] LABS: Glucose - Point of Care 273 mg/dl (70-99)
[2024-05-01] MEDS: NOVOLOG FLEXPEN-LOW RESISTANCE 3 UNITS SC (11:50)
[2024-05-01 12:09] VITALS: BP 102/54
--- NOTE | 2024-05-01 12:15 | W.PN.HOSP.TC ---
Today's Communication/Plan
-
pending acceptance to rehab
Assessment / Plan
Assessment / Plan
83yo M with PMHx of CAD s/p CABG, slow VT s/p ICD and PPM, DM, COPD, Urinary urgency, HLD came with recurrent episodes of 'syncope' described as staring spell lasting for appr 20-30sec. ICD interrogation in ED showed VT without reaching threshold
for shockCardiology did R/L heart catheterization without new focus for VT. Verapamil stopped, Metoprolol d/c. Neurologist recommended Depakote. LFT increased since Amiodarone load, but stable. Rehab not available until Mon as per CM
A/P:
#Transaminitis
#Elevated alk phos
most likely 2/2 hypotension since resolving
Hepatitis panel neg
Cardiology continued Amio antiarrhythmic
GI consult: follow LFT
Advised to repeat LFT with PCP in 1 week upon d/c due to new Amiodarone and Depakote (unlikely offender as started while LFT already were elevated)
US RUQ with Doppler unremarkable for PVT, No CBD dilation, showed normal gall bladder
Hold statin, start Zetia
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
#CAD s/p CABG
#Chronic HFrEF
#Moderate-severe MR
s/p cath on 04/25/24 by cardiology- cont GDMT, might need ablation eventually. Cont Amiodarone. No stent placed as patient w/o chest pain
Verapamil stopped
Toprol decreased
Echo: EF 20-25%, MODERATE-SEVERE MR: GDMT limited by hypotension.
LE elevation and compression stockings
#Syncopal episodes with staring spell
#Hypotension
Head CT without acute findings
EEG without signs of seizures
neurologist eval: empiric Depakote
#Constipation
laxatives
#DM type 2 with neuropathy
hold oral hypoglycemics
Insulin SS, DM diet, AccuCheck
HgbA1c 7.0%
no concern for hypoglycemia episodes at this time
#COPD, not in exacerbation
#PAD s/p LE stents
cont home meds
#Liver hemangioma
#R renal cyst
no f/u advised
DVT ppx hep
Full code
I have spent at least 37min reviewing chart, test results and providing direct patient care
Anticipated Discharge: Within 24 hours
Subjective/Interval History
-
Date of Service: May 01, 2024
Objective Data
-
Vital Signs:
Vital Signs
Temp Pulse Resp BP Pulse Ox
97 F 79 20 110/38 100
05/01/24 12:05 05/01/24 07:54 05/01/24 12:05 05/01/24 05:59 05/01/24 12:05
I&O
04/30/24 05/01/24 05/02/24
06:59 06:59 06:59
Intake Total 240 / 240 480 / 480
Output Total 400 / 400 550 / 550
Balance -400 / -400 -310 / -310 480 / 480
Review of Systems
-
History Source: Patient
All other systems: Reviewed and negative
Physical Exam
-
General: Well Developed, Well Nourished and No Apparent Distress
Respiratory: Clear to Auscultation
Cardiac: Regular Rhythm
GI: Soft, Nontender and Nondistended
Musculoskeletal: Edema, Right Lower Extrem and Edema, Left Lower Extrem
Neuro: Awake, Alert, Oriented and AO x 3
Psych: Calm
[2024-05-01 16:10] VITALS: BP 103/57
[2024-05-01 17:05] LABS: Glucose - Point of Care 240 mg/dl (70-99)
[2024-05-01] MEDS: TOPROL XL 12.5 MG PO (17:33)
[2024-05-01] MEDS: NOVOLOG FLEXPEN-LOW RESISTANCE 2 UNITS SC (17:34)
--- NOTE | 2024-05-01 17:54 | PTCARENOTE ---
pt continues to be sr on the monitor, vss. pt has been oob to chair for most of the day, tolerating well. pt and educated on plan of care and pt verbalized understanding. call mtz within reach.
[2024-05-01 20:05] VITALS: BP 94/79
[2024-05-01] MEDS: MIRALAX 17 GRAMS PO (20:06)
[2024-05-01 22:33] VITALS: BP 105/55
[2024-05-01] MEDS: DEPAKOTE ER (24 HR RELEASE) 250 MG PO (22:34)
[2024-05-01 22:42] LABS: Glucose - Point of Care 209 mg/dl (70-99)
[2024-05-02] VITALS (8 sets, daily range): BP systolic 87–98; BP diastolic 35–65; PULSE 77; O2SAT 94; BMI 20.2
--- NOTE | 2024-05-02 06:33 | PTCARENOTE ---
patient slept well overnight. Apaced with PVCs on tele. bp stable. wound care completed. patient eager to go to rehab today. oob with the walker. steady on his feet. call mtz within each. calls appropriately.
--- NOTE | 2024-05-02 07:30 | PTCARENOTE ---
Assumed care of pt from prev nsg shift; Pt AAOx3 w/no c/o CP or SOB. Pt's VS stable w/HR in the 70's & BP this AM 96/65. Pt is A-paced w/frequent PVC's on telemetry monitoring. Pt assisted OOB to CH; SS weight obtained. New sacral foam dressing
applied to Stage 1 pressure ulcer on pt's sacrum. Plan of care ongoing.
[2024-05-02] MEDS: SPIRIVA RESPIMAT 2.5 MCG 2 PUFF INH (08:05)
[2024-05-02 08:23] LABS: Glucose - Point of Care 165 mg/dl (70-99)
[2024-05-02] MEDS: NOVOLOG FLEXPEN-LOW RESISTANCE 1 UNITS SC (08:25)
--- NOTE | 2024-05-02 09:19 | W.PN.HOSP.TC ---
Today's Communication/Plan
-
dc
Assessment / Plan
Assessment / Plan
83yo M with PMHx of CAD s/p CABG, slow VT s/p ICD and PPM, DM, COPD, Urinary urgency, HLD came with recurrent episodes of 'syncope' described as staring spell lasting for appr 20-30sec. ICD interrogation in ED showed VT without reaching threshold
for shock. Cardiology did R/L heart catheterization without new focus for VT. Verapamil stopped, Metoprolol d/c. Neurologist recommended Depakote. LFT increased since Amiodarone load, but later improved. Diuresis and GDMT is limited due to
perisstent hypotension. Medically stable for d/c
A/P:
#Transaminitis
#Elevated alk phos
most likely 2/2 hypotension since resolving
Hepatitis panel neg
Cardiology continued Amio antiarrhythmic
GI consult: follow LFT
Advised to repeat LFT with PCP in 1 week upon d/c due to new Amiodarone and Depakote (unlikely offender as started while LFT already were elevated)
US RUQ with Doppler unremarkable for PVT, No CBD dilation, showed normal gall bladder
Hold statin, start Zetia
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
#CAD s/p CABG
#Chronic HFrEF
#Moderate-severe MR
s/p cath on 04/25/24 by cardiology- cont GDMT, might need ablation eventually. Cont Amiodarone. No stent placed as patient w/o chest pain
Verapamil stopped
Toprol decreased
Echo: EF 20-25%, MODERATE-SEVERE MR: GDMT limited by hypotension.
LE elevation and compression stockings
#Syncopal episodes with staring spell
#Hypotension
Head CT without acute findings
EEG without signs of seizures
neurologist eval: empiric Depakote
#Constipation
laxatives
#DM type 2 with neuropathy
hold oral hypoglycemics
Insulin SS, DM diet, AccuCheck
HgbA1c 7.0%
no concern for hypoglycemia episodes at this time
#COPD, not in exacerbation
#PAD s/p LE stents
cont home meds
#Liver hemangioma
#R renal cyst
no f/u advised
DVT ppx hep
Full code
I have spent at least 37min reviewing chart, test results and providing direct patient care
Anticipated Discharge: Today
Subjective/Interval History
-
Date of Service: May 02, 2024
Objective Data
-
Vital Signs:
Vital Signs
Temp Pulse Resp BP Pulse Ox
97.4 F 76 16 96/65 96
05/02/24 07:58 05/02/24 08:06 05/02/24 08:06 05/02/24 07:55 05/02/24 08:06
I&O
05/01/24 05/02/24 05/03/24
06:59 06:59 06:59
Intake Total 240 / 240 730 / 730
Output Total 550 / 550 750 / 750
Balance -310 / -310 -20 / -20
Review of Systems
-
History Source: Patient
All other systems: Reviewed and negative
Physical Exam
-
General: No Apparent Distress
HEENT: Normocephalic
Respiratory: Clear to Auscultation
Cardiac: Regular Rhythm
GI: Soft, Nontender and Nondistended
Musculoskeletal: No Clubbing, No Cyanosis, Edema, Right Lower Extrem and Edema, Left Lower Extrem
Neuro: Awake, Alert, Oriented and AO x 3
Psych: Calm
--- NOTE | 2024-05-02 09:26 | W.DCSUMMARY ---
Discharge Summary
Discharge Data
Date of Admission: 04/23/24
Date of Discharge: 05/02/24
-
Pending Results: No
Hospital Course
83yo M with PMHx of CAD s/p CABG, slow VT s/p ICD and PPM, DM, COPD, Urinary urgency, HLD came with recurrent episodes of 'syncope' described as staring spell lasting for appr 20-30sec. ICD interrogation in ED showed VT without reaching threshold
for shock. Cardiology did R/L heart catheterization without new focus for VT. Verapamil stopped, Metoprolol d/c. Neurologist recommended Depakote. LFT increased since Amiodarone load, but later improved. Diuresis and GDMT is limited due to
perisstent hypotension. Medically stable for d/c, pt/ot recommended rehab
I have spent at least 39min reviewing the chart, test results, communication with cosnultants anddirect patient care
Patient was managed for:
#Transaminitis
#Elevated alk phos
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
#CAD s/p CABG
#Chronic HFrEF
#Moderate-severe MR
#Syncopal episodes with staring spell
#Hypotension
#Constipation
#DM type 2 with neuropathy
#COPD, not in exacerbation
#PAD s/p LE stents
#Liver hemangioma
#R renal cyst
Discharge Plan
-
Patient Disposition: Fdc/SNF
Discharge Diagnosis/Procedures: cardiac catheterization
Blood Work: LFT in 1 week
Other Services: PT and OT
Activity Restrictions/Additional Instructions:
Wound Care Instructions
R medial foot: clean with soap and water, skin prep periwound, adaptic and dry dressing(bordered gauze) change every other day and prn drainage.
lambs wool around great toe.
Patient can weight bear and use sandal at bedside when ambulating.
Mineral oil to legs and feet daily
Sacrum: clean with soap and water, silicone foam change q 3 days and prn soilage.
Bring air chair cushion home upon discharge
frequent shifts in position when sitting
increase protein in diet.
Follow up with [employer]
Follow up at wound care center
Stand Alone Forms: DC Instructions- Cath/EP Lab
Referrals:
Nahun Templeton MD [Active] - 05/13/24 10:00 am (Cardiology followup appointment)
Adrian Keen MD [Family Provider] - in one week (repeat liver function blood test since patient on new Amiodarone and Depakote)
Prescriptions:
New
divalproex 250 mg Tablet Extended Release 24 Hr
250 mg PO HS Qty: 30 0RF
polyethylene glycol 3350 [HealthyLax] 17 gram Powder In Packet
17 g PO BIDPRN PRN (Reason: Constipation) Qty: 30 0RF
amiodarone 200 mg Tablet
200 mg PO DAILY Qty: 30 0RF
sennosides-docusate sodium 8.6-50 mg Tablet
1 tab PO BID Qty: 60 0RF
metoprolol succinate 25 mg Tablet Extended Release 24 Hr
12.5 mg PO QPM Qty: 30 0RF
ezetimibe 10 mg Tablet
10 mg PO DAILY Qty: 30 0RF
Continued
glimepiride 4 MG tablet
4 mg PO DAILY
aspirin 81 MG tablet,delayed release (DR/EC)
81 mg PO DAILY
dapagliflozin propanediol [Farxiga] 10 MG tablet
10 mg PO DAILY
Refresh Classic (PF) 10 DROPS dropperette
1 drp RIGHT EYE HS
metformin 500 mg tablet
1,000 mg PO BID
albuterol sulfate 90 mcg/actuation Hfa Aerosol Inhaler
1 inh INHALATION R Q6HPRN PRN (Reason: SOB)
omeprazole 20 mg Tablet,Delayed Release (Dr/Ec)
20 mg PO Q48H
Incruse Ellipta 62.5 mcg/actuation Blister With Device
1 inh INHALATION R DAILY
repaglinide 2 mg Tablet
2 mg PO QPM
acetaminophen [Tylenol Extra Strength] 500 mg Tablet
1,000 mg PO Q6HPRN PRN (Reason: mild pain)
oxybutynin chloride 5 mg Tablet Extended Release 24hr
5 mg PO DAILY
Discontinued
rosuvastatin 40 mg Tablet
40 mg PO QPM Qty: 0 0RF
verapamil 120 mg Tablet Extended Release
120 mg PO DAILY
amiodarone 200 mg Tablet
200 mg PO QPM
metoprolol succinate 25 mg Tablet Extended Release 24 Hr
25 mg PO QPM
Discharge Orders:
Discharge Patient (As Directed); Ordered 05/02/24
Ordered By: Chris Carlson
Care Plan Goals
Care Plan Goals:
Problem: Readiness for enhanced knowledge related to diagnosis and treatment plan
Goal: Understand your diagnosis and treatment plan needs, including medications if applicable.
Instructions: Know your diagnosis, underlying causes and treatment plan options, including medications if applicable. Consult with your health care team to learn about your diagnosis and treatment plan, including medications if applicable.
Discharge Date and Time
Print Language: TAMAZIGHT
--- NOTE | 2024-05-02 10:08 | CM ---
Reviewed chart. . Telephone call to [facility] who confirms bed available for today. Unit Sec. made wheelchair arrangements with Acute Care for 1:30 p.m. Met with Mr. Collier to update him. Medical work-up in progress. The discharge
plan is to go to [facility] when medically stable.
[2024-05-02] MEDS: ASPIR LOW (ENTERIC COATED) 81 MG PO (10:12)
[2024-05-02] MEDS: SENOKOT-S 1 TABLET PO (10:12)
[2024-05-02] MEDS: DITROPAN 2.5 MG PO (10:13)
[2024-05-02] MEDS: HYDROPHOR 1 APPLIC TOPICAL (10:13)
[2024-05-02] MEDS: PACERONE 200 MG PO (10:13)
[2024-05-02] MEDS: HEPARIN 5000 UNITS SC (10:13)
[2024-05-02] MEDS: MIRALAX 17 GRAMS PO (10:13)
[2024-05-02] MEDS: AMARYL 2 MG PO (10:14)
[2024-05-02] MEDS: ZETIA 10 MG PO (10:18)
[2024-05-02 11:23] LABS: Glucose - Point of Care 267 mg/dl (70-99)
[2024-05-02] MEDS: NOVOLOG FLEXPEN-LOW RESISTANCE 3 UNITS SC (12:34)
--- NOTE | 2024-05-02 13:46 | PTCARENOTE ---
Pt's IV line & telemetry D/C'd; D/C instructions & med list discussed w/pt & spouse prior to transfer to [facility] for skilled rehab. Pt left via wheelchair to [facility] w/personal belongings including cell phone & psychometric examiner. Report called to [phone].
== END 2024-05-02 13:30 | DRG 287 ==
LOC: IVU 16:26
PROVIDERS: Internal Medicine; Internal Medicine Cardiovascular Disease; Nurse Practitioner; Nurse Practitioner Adult Health; ADMITTING PHYSICIAN Hospitalist; ATTENDING PHYSICIAN Internal Medicine; CONSULT PHYSICIAN Internal Medicine Cardiovascular Disease; CONSULT PHYSICIAN Internal Medicine Gastroenterology; CONSULT PHYSICIAN Psychiatry & Neurology Neurology; EMERGENCY PHYSICIAN Student in an Organized Health Care Education/Training Program; FAMILY PHYSICIAN Internal Medicine
PROC: B2151ZZ Fluoroscopy of Left Heart using Low Osmolar Contrast (ICD-10-PCS; 2024-04-25)
PROC: B2131ZZ Fluoroscopy of Multiple Coronary Artery Bypass Grafts using Low Osmolar Contrast (ICD-10-PCS; 2024-04-25)
PROC: 4A023N7 Measurement of Cardiac Sampling and Pressure, Left Heart, Percutaneous Approach (ICD-10-PCS; 2024-04-25)
PROC: B2111ZZ Fluoroscopy of Multiple Coronary Arteries using Low Osmolar Contrast (ICD-10-PCS; 2024-04-25)
DX: I47.20 Ventricular tachycardia, unspecified (principal); I50.42 Chronic combined systolic (congestive) and diastolic (congestive) heart failure; Z87.891 Personal history of nicotine dependence; I25.10 Atherosclerotic heart disease of native coronary artery without angina pectoris; I11.0 Hypertensive heart disease with heart failure; J44.9 Chronic obstructive pulmonary disease, unspecified; E11.43 Type 2 diabetes mellitus with diabetic autonomic (poly)neuropathy; K59.00 Constipation, unspecified; D18.03 Hemangioma of intra-abdominal structures; L89.151 Pressure ulcer of sacral region, stage 1; Z75.1 Person awaiting admission to adequate facility elsewhere
CPT/HCPCS: 70450; 71045; 76700; 80048; 80053; 80076; 82962; 83036; 83735; 84443; 84484; 85025; 85027; 85610; 86704; 86706; 86709; 86803; 87340; 93005; 93289; 93306; 93459; 93975; 94640; 95816; 96374; 97116; 97163; 97167; 97530; 97535; 99285; C1894; Q9967

== ENCOUNTER → 2024-05-10 10:06 | Outpatient (REF) | payer MEDICARE, SELFPAY ==
[2024-05-10 11:02] LABS: Hematocrit 38.1 % (39.0-52.0); Hemoglobin 12.4 g/dL (13.0-18.0); Mean Corp Hgb Conc. 32.5 g/dL (33.0-37.0); Mean Corpuscular Volume 92.3 fL (80.0-94.0); Mean Platelet Volume 11.4 fL (7.4-10.4); Platelet Count 265 10^3/uL (130-400); Red Blood Cell Count 4.13 10^6/uL (4.70-6.10); Red Cell Dist. Width 16.4 % (11.5-14.5); White Blood Cell Count 7.1 10^3/uL (4.8-10.8)
[2024-05-10 11:19] LABS: Blood Urea Nitrogen 37 mg/dl (9-20); Calcium 8.8 mg/dl (8.4-10.2); Carbon Dioxide 28 mmol/L (22-30); Glucose 88 mg/dl (70-99); Potassium 5.4 mmol/L (3.5-5.1); Sodium 137 mmol/L (135-145); eGFR > 60.00
[2024-05-10 11:25] LABS: Chloride 102 mmol/L (98-107)
== END ==
LOC: OLABP 10:06
PROVIDERS: ATTENDING PHYSICIAN Family Medicine
DX: R55 Syncope and collapse (principal); M62.81 Muscle weakness (generalized); R26.2 Difficulty in walking, not elsewhere classified; I25.10 Atherosclerotic heart disease of native coronary artery without angina pectoris; Z95.810 Presence of automatic (implantable) cardiac defibrillator; S91.301D Unspecified open wound, right foot, subsequent encounter; L89.151 Pressure ulcer of sacral region, stage 1; E11.40 Type 2 diabetes mellitus with diabetic neuropathy, unspecified; I50.9 Heart failure, unspecified; I34.0 Nonrheumatic mitral (valve) insufficiency; J44.9 Chronic obstructive pulmonary disease, unspecified; I95.9 Hypotension, unspecified; E78.5 Hyperlipidemia, unspecified; I73.9 Peripheral vascular disease, unspecified; M21.372 Foot drop, left foot; I47.20 Ventricular tachycardia, unspecified; R39.15 Urgency of urination
CPT/HCPCS: 36415; 80048; 85027

== ENCOUNTER → 2024-05-11 11:24 | Outpatient (REF) | payer OTHER, MEDICARE, SELFPAY ==
[2024-05-11 13:01] LABS: ALT (SGPT) 22 U/L (0-50); AST (SGOT) 22 U/L (17-59); Albumin 2.8 g/dl (3.5-5.0); Alkaline Phosphatase 108 U/L (38-126); Direct Bilirubin 0.1 mg/dl (0.0-0.4); Total Bilirubin 0.3 mg/dl (0.2-1.3); Total Protein 5.1 g/dl (6.3-8.2)
== END ==
LOC: OLABP 11:24
PROVIDERS: ATTENDING PHYSICIAN Family Medicine
DX: I47.20 Ventricular tachycardia, unspecified (principal); R55 Syncope and collapse; I25.10 Atherosclerotic heart disease of native coronary artery without angina pectoris; Z95.810 Presence of automatic (implantable) cardiac defibrillator; E11.40 Type 2 diabetes mellitus with diabetic neuropathy, unspecified; J44.9 Chronic obstructive pulmonary disease, unspecified; I50.9 Heart failure, unspecified; I34.0 Nonrheumatic mitral (valve) insufficiency; I73.9 Peripheral vascular disease, unspecified
CPT/HCPCS: 36415; 80076

== ENCOUNTER → 2024-06-02 08:06 | Outpatient (REF) | payer MEDICARE, SELFPAY | LOC: WOUND 08:06 | PROVIDERS: ATTENDING PHYSICIAN Surgery; FAMILY PHYSICIAN Internal Medicine | DX: I70.235 Atherosclerosis of native arteries of right leg with ulceration of other part of foot (principal); I70.245 Atherosclerosis of native arteries of left leg with ulceration of other part of foot; L97.512 Non-pressure chronic ulcer of other part of right foot with fat layer exposed; L97.522 Non-pressure chronic ulcer of other part of left foot with fat layer exposed; I73.9 Peripheral vascular disease, unspecified | CPT/HCPCS: 11042; 99214 ==

== ENCOUNTER → 2024-06-09 08:55 | Outpatient (REF) | payer MEDICARE, SELFPAY | LOC: WOUND 08:55 | PROVIDERS: ATTENDING PHYSICIAN Surgery; FAMILY PHYSICIAN Internal Medicine | DX: I70.235 Atherosclerosis of native arteries of right leg with ulceration of other part of foot (principal); I70.245 Atherosclerosis of native arteries of left leg with ulceration of other part of foot; L97.512 Non-pressure chronic ulcer of other part of right foot with fat layer exposed; L97.522 Non-pressure chronic ulcer of other part of left foot with fat layer exposed | CPT/HCPCS: 99213 ==

== ENCOUNTER 2024-06-11 18:17 | Inpatient (IN) | payer MEDICARE, SELFPAY ==
[2024-06-11] VITALS (11 sets, daily range): BP systolic 87–102; BP diastolic 40–74; BMI 21.4; BMI 20.9
--- NOTE | 2024-06-11 14:01 | ED.GENMED ---
History of Present Illness
<Iman Ledesma MD, Resident - Last Filed: 06/12/24 23:25>
General
Chief Complaint: Weakness
Source: patient and spouse
Exam Limitations: none
Time Seen by Provider: 06/11/24 13:57
Nursing documentation reviewed up to this point in time: agreed with
History of Present Illness
History of Present Illness:
83-year-old male with a past medical history of CVA/TIA, neuropathy, COPD, former smoker with [id number] smoking history, CAD, HLD, peripheral vascular disease, with critical limb ischemia presents to the hospital for evaluation of fatigue,
weakness, shortness of breath, and cough. He was discharged from rehab about a month ago, and was doing fine for 2 weeks. Over the last 2 weeks he started feeling extremely fatigued and has a generalized weakness that progressively worsened, and
is associated with shortness of breath on exertion. He has some orthopnea and has been propping his head up at 30 degrees to go to sleep. He also reports that over the last 1 week he has been having dry cough, that is associated with chills and
rigors for about 2 days now. He also developed some associated nausea beginning yesterday night, and his notices his blood sugar to be high in the mornings for the last 2 days > 200. Patient also monitors his weight regularly at home and his
baseline weight is 146 to 148 pounds. He never noticed weight gain. He denies having any fevers, chest pain, palpitations, PND, abdominal pain, emesis. His bowel movements are regular, no blood in the stool or tarry colored stools. He also denies
having any sick contacts.
Of note he went to his primary care physician few days ago, who obtained a chest x-ray and told him that his lungs has some fluid, and prescribed Lasix which the patient has not yet started.
If applicable-neuro sx onset
Onset of symptoms known: No
Time pt last seen normal is known: No
Past History
<Iman Ledesma MD, Resident - Last Filed: 06/12/24 23:25>
Past History
ED Past Medical History: CAD, Hypercholesterolemia, NIDDM and Other
ED Past Surgical History: Cardiac
Patient has exhibited threatening behavior?: No
PSI?: No
Social History
Tobacco: Former smoker
Alcohol: Former
Drug: None
Personal:
Living: with family
Employment: Retired
Family History
Family History: Other (not pertinent)
Review of Systems
<Iman Ledesma MD, Resident - Last Filed: 06/12/24 23:25>
Review of Systems
Allergies reviewed?: Yes
Other source history: family
Constitutional: Reports fatigue and chills
Phy Exam
<Iman Ledesma MD, Resident - Last Filed: 06/12/24 23:25>
General Physical Exam
General Presentation: mild distress
General Skin: warm
General Habitus: normal, elderly and frail
General Hydration: dry mucous membranes
ENT Exam
ENT Exam: EOMI, TM's normal, pharynx normal and neck supple
Eye Exam
Eye Exam: PERRL and EOMI
Cardiovascular Exam
Cardiovascular Exam: regular rate/rhythm, no gallop, JVD, occasionally irregular and other (1+ dorsalis pedis on the left, 2+ on the right,)
Heart Sounds: distant and other (Pacemaker interrogation shows increased impedance, about 575 PVCs hourly over the last 29 hours.)
Pulmonary Exam
Pulmonary Exam: respiratory distress and other (Bilateral basal crackles present.)
Cough: non productive cough
Respirations: accessory muscle use
Gastrointestinal Exam
Gastrointestinal Exam: normal bowel sounds, non tender, soft and non distended
Neurological Exam
Neurological Exam: alert and oriented x3
Musculoskeletal Exam
Musculoskeletal Exam: edema (2+ pitting edema up to knees.)
Skin Exam
Skin Exam: other (Frail and bruised all over forearms.)
Course
<Iman Ledesma MD, Resident - Last Filed: 06/12/24 23:25>
Orders/Labs/Results
Orders:
Orders
06/11/24 13:41
Electrocardiogram (*1) Urgent
Reason for Study: Shortness of Breath
EKG- Treatment ONCE
06/11/24 14:23
Complete Blood Count/With Diff Urgent
Comprehensive Metabolic Panel Urgent
Magnesium Urgent
Comment: ADD ON
NT-proBNP Urgent
Phosphorus Urgent
Comment: ADD ON
TSH Reflex To Free T4 Urgent
Comment: ADD ON
Troponin I Urgent
Comment: ADD ON
06/11/24 14:53
Add On- LAB Urgent
Tests Added?: troponin, TSH with reflex T4, mag, phos
CR Chest - 2 Views Urgent
Comment:
Reason For Exam: shortness of breath
06/11/24 14:54
Ondansetron Injectable [Zofran] 4 mg IV NOW STA
06/11/24 Dinner
1800 calorie (15 carb) Diabetic
At Your Request: Limited Participation
Fluid Restriction: 1200 mL/day (40 oz)
06/11/24 15:53
Furosemide [Lasix] 20 mg IV NOW STA
06/11/24 16:34
Dextrose 50%-Water [Dextrose 50% Syringe] 25 grams IV NOW STA
Insulin Human Regular [Novolin R] 10 units IV NOW STA
06/11/24 17:13
Calcium Gluconate 1 gram/100mL [Calcium Gluconate] 1 gram in 100 ml IV ONCE
06/11/24 17:31
Admit/Transfer Patient As Directed
Co-Sign Provider:
Level of Care: Inpatient admission
Assign to:: IMU- Intermediate Care
Physician / Group: edidra pérez
Diagnosis: hypoxia 2/2 mod L sided plueral eff, hyperkalemia,hypotension,l foot wound
Reason for Hospitalization: hypoxia 2/2 mod L sided plueral eff, hyperkalemia,hypotension,l foot wound poa
Expected length of stay greater than two midnights?: Yes
ELOS- Estimated Length of Stay in days: 3
I certify the patient meets the requirements for IP care: Yes
Code Status As Directed
Resuscitation Status: Do not resuscitate
Reached after discussion with pt or family/Healthcare POA: Yes
Based on pt advanced directive or healthcare POA form: Yes
Decision communicated with: Per patient with Kalie at bedside
06/11/24 17:34
DNR Bracelet Application ONCE
06/11/24 17:39
PRN Pain Medication Management As Directed
May give lesser potent ordered pain med per pt: Yes
preference::
Protocol:: Medication orders for pain may be administered in a
manner that supports deferring to patient preference
when the pt is:
- Requesting an ordered lesser potent pain medication.
Least to most potent pain medications are defined
as: acetaminophen < NSAID < tramadol < opioids
(morphine, oxycodone, hydromorphone).
- Requesting a lesser dose of the same medication IF
ORDERED.
- Requesting a less intrusive route of administration
if both routes are prescribed by the provider (PO <
IV).
06/11/24 17:45
CARDIOLOGY CONSULT Routine
Consulting Provider: Naren Banda
Was physician already notified: Yes
Reason for consult: achute chf, l loculate pleural effusion
06/11/24 19:09
COVID-19 Antigen Urgent
Source: Nasal Swab
Influenza A+B Rapid Molecular Urgent
GEO Source: Nasal Swab
Specimen Description:
06/11/24 20:19
Acetaminophen [Tylenol] 650 mg PO Q4HPRN PRN
Albuterol [ProAIR HFA INHALER] 1 puff INH R Q6HPRN PRN
Dextrose 50%-Water [Dextrose 50% Syringe] 12.5 grams IV [id number] PRN
Docusate W/Senna [Senokot-S] 1 tablet PO BIDPRN PRN
Enoxaparin Sodium [Lovenox] 40 mg SC QPM
Glucagon [GlucaGen] 1 mg IM PRN PRN
Ondansetron Injectable [Zofran] 4 mg IV Q6HPRN PRN
Polyethylene Glycol Powder [Miralax] 17 grams PO BIDPRN PRN
06/11/24 20:19
Add On- LAB Routine
Tests Added?: Body Fluid Triglycerides
IRAD CONSULT Routine
Consulting Provider: Andrzej Anderson
Was physician already notified: Yes
Reason for Consult/Procedure: left plueral effusion loculated larger
Acknowledgement that appropriate orders are entered: Yes
WOUND/OSTOMY CONSULT Routine
Reason for Consult: left foot, sacrum stage 1-2
Acid Fast Culture & Smear Routine
GEO Source: Pleural Fluid
Specimen Description:
Comment: post procedure
Body Fluid Amylase Routine
Fluid Source: Pleural
Body Fluid Cell Count Routine
What is the Body Fluid: pleural fluid
Comment: post procedure
Body Fluid Glucose Routine
Fluid Source: Pleural
Body Fluid LDH Routine
Fluid Source: Pleural
Body Fluid Protein Routine
Fluid Source: Pleural
Body Fluid Triglycerides Routine
Fluid Source: Pleural
Body Fluid pH Routine
Fluid Source: Pleural
Fluid Culture with Gram Stain Routine
GEO Source: Pleural Fluid
Specimen Description:
Comment: post procedure
Fungus Culture Routine
GEO Source: Pleural Fluid
Specimen Description:
Fungus Smear Routine
GEO Source: Pleural Fluid
Specimen Description:
Gram Stain Routine
GEO Source: Pleural Fluid
Specimen Description:
Comment: POST PROCEDURE
Activity As Directed
Activity Level: With Assistance
Bedside Glucose Monitoring As Directed
Frequency: AC&HS
Additional Instructions:: Change to q6h if pt on TPN, tube feeding or not eating
Intake/ Output As Directed
Frequency: Per unit guidelines
Vital Signs As Directed
Frequency: Per unit guidelines
Weight As Directed
Frequency: Daily
Bedside Cytology Routine
Source: Pleural Fluid, Left
Clinical Impression: left plueral fluid chf
IRAD Cytology Routine
Source: Pleural Fluid, Left
Clinical Impression: hypoxia
O2 Therapy [RESP] Routine
Nasal Cannula Liter Flow: 2 LPM
Titrate/Wean O2 to maintain O2 sat greater than (%): 92
Pulse Ox/spot Check [RESP] Routine
Quantity: 1
Ot Eval And Treat Routine
Pt Eval And Treat Routine
Activity Level: With Assistance
DX Deep Vein Thrombosis Video Routine
06/11/24 21:04
Metoprolol Xl [Toprol Xl] 12.5 mg PO QPM
06/11/24 22:00
Artificial Tears (Pf) [Refresh Eye Drops (Pf)] 1 drops RIGHT EYE HS
Pantoprazole [Protonix] 40 mg PO Q48H
06/11/24 23:06
BMP [Basic Metabolic Panel] Urgent
06/12/24 04:25
Complete Blood Count/With Diff IN AM
Comprehensive Metabolic Panel IN AM
06/12/24 07:30
Insulin Aspart Corrective Low [Novolog Flexpen-Low Resistance] See Protocol SC AC
06/12/24 08:00
Amiodarone [Pacerone] 200 mg PO DAILY
Aspirin Low Dose EC [Aspir Low (Enteric Coated)] 81 mg PO DAILY
Dapagliflozin [Farxiga] 10 mg PO DAILY
Ezetimibe [Zetia] 10 mg PO DAILY
Oxybutynin Chloride [Ditropan] 2.5 mg PO BID
06/13/24 06:00
Complete Blood Count/With Diff IN AM
Comprehensive Metabolic Panel IN AM
06/14/24 06:00
Complete Blood Count/With Diff IN AM
Comprehensive Metabolic Panel IN AM
06/15/24 06:00
Complete Blood Count/With Diff IN AM
Comprehensive Metabolic Panel IN AM
Abnormal Lab Results
06/11/24
14:23
RBC 3.99 L 10^6/uL
(4.70-6.10)
Hgb 12.3 L g/dL
(13.0-18.0)
MCV 98.2 H fL
(80.0-94.0)
MCHC 31.4 L g/dL
(33.0-37.0)
RDW 17.6 H %
(11.5-14.5)
MPV 11.2 H fL
(7.4-10.4)
Lymphocytes % 19.0 L %
(20.5-51.1)
Potassium 6.0 H mmol/L
(3.5-5.1)
BUN 48 H mg/dl
(9-20)
Glucose 207 H mg/dl
(70-99)
Phosphorus 4.6 H mg/dl
(2.5-4.5)
Total Protein 5.9 L g/dl
(6.3-8.2)
Albumin 3.3 L g/dl
(3.5-5.0)
06/11/24 14:23
06/11/24 14:23
Vital Signs
Initial and Last Documented VS:
Initial Vital Signs
Temp Pulse Resp BP Pulse Ox
97.4 F 69 16 98/57 95
06/11/24 13:34 06/11/24 13:34 06/11/24 13:34 06/11/24 13:34 06/11/24 13:34
Last Documented Vital Signs
Temp Pulse Resp BP Pulse Ox
99.1 F 73 15 92/52 98
06/12/24 22:52 06/12/24 23:00 06/12/24 23:00 06/12/24 23:00 06/12/24 23:00
Hiramlt;Conor Johnson, - Last Filed: 06/11/24 20:14>
Orders/Labs/Results
Orders:
Orders
06/11/24 13:41
Electrocardiogram (*1) Urgent
Reason for Study: Shortness of Breath
EKG- Treatment ONCE
06/11/24 14:23
Complete Blood Count/With Diff Urgent
Comprehensive Metabolic Panel Urgent
Magnesium Urgent
Comment: ADD ON
NT-proBNP Urgent
Phosphorus Urgent
Comment: ADD ON
TSH Reflex To Free T4 Urgent
Comment: ADD ON
Troponin I Urgent
Comment: ADD ON
06/11/24 14:53
Add On- LAB Urgent
Tests Added?: troponin, TSH with reflex T4, mag, phos
CR Chest - 2 Views Urgent
Comment:
Reason For Exam: shortness of breath
06/11/24 14:54
Ondansetron Injectable [Zofran] 4 mg IV NOW STA
06/11/24 Dinner
1800 calorie (15 carb) Diabetic
At Your Request: Limited Participation
Fluid Restriction: 1200 mL/day (40 oz)
06/11/24 15:53
Furosemide [Lasix] 20 mg IV NOW STA
06/11/24 16:34
Dextrose 50%-Water [Dextrose 50% Syringe] 25 grams IV NOW STA
Insulin Human Regular [Novolin R] 10 units IV NOW STA
06/11/24 17:13
Calcium Gluconate 1 gram/100mL [Calcium Gluconate] 1 gram in 100 ml IV ONCE
06/11/24 17:31
Admit/Transfer Patient As Directed
Co-Sign Provider:
Level of Care: Inpatient admission
Assign to:: IMU- Intermediate Care
Physician / Group: deidra pérez
Diagnosis: hypoxia 2/2 mod L sided plueral eff, hyperkalemia,hypotension,l foot wound
Reason for Hospitalization: hypoxia 2/2 mod L sided plueral eff, hyperkalemia,hypotension,l foot wound poa
Expected length of stay greater than two midnights?: Yes
ELOS- Estimated Length of Stay in days: 3
I certify the patient meets the requirements for IP care: Yes
Code Status As Directed
Resuscitation Status: Do not resuscitate
Reached after discussion with pt or family/Healthcare POA: Yes
Based on pt advanced directive or healthcare POA form: Yes
Decision communicated with: Per patient with Kalie at bedside
06/11/24 17:34
DNR Bracelet Application ONCE
06/11/24 17:39
PRN Pain Medication Management As Directed
May give lesser potent ordered pain med per pt: Yes
preference::
Protocol:: Medication orders for pain may be administered in a
manner that supports deferring to patient preference
when the pt is:
- Requesting an ordered lesser potent pain medication.
Least to most potent pain medications are defined
as: acetaminophen < NSAID < tramadol < opioids
(morphine, oxycodone, hydromorphone).
- Requesting a lesser dose of the same medication IF
ORDERED.
- Requesting a less intrusive route of administration
if both routes are prescribed by the provider (PO <
IV).
06/11/24 17:45
CARDIOLOGY CONSULT Routine
Consulting Provider: Krakowski,Naren Samson
Was physician already notified: Yes
Reason for consult: achute chf, l loculate pleural effusion
06/11/24 19:09
COVID-19 Antigen Urgent
Source: Nasal Swab
Influenza A+B Rapid Molecular Urgent
GEO Source: Nasal Swab
Specimen Description:
06/11/24 20:19
Acetaminophen [Tylenol] 650 mg PO Q4HPRN PRN
Albuterol [ProAIR HFA INHALER] 1 puff INH R Q6HPRN PRN
Dextrose 50%-Water [Dextrose 50% Syringe] 12.5 grams IV [id number] PRN
Docusate W/Senna [Senokot-S] 1 tablet PO BIDPRN PRN
Enoxaparin Sodium [Lovenox] 40 mg SC QPM
Glucagon [GlucaGen] 1 mg IM PRN PRN
Ondansetron Injectable [Zofran] 4 mg IV Q6HPRN PRN
Polyethylene Glycol Powder [Miralax] 17 grams PO BIDPRN PRN
06/11/24 20:19
Add On- LAB Routine
Tests Added?: Body Fluid Triglycerides
IRAD CONSULT Routine
Consulting Provider: Andrzej Anderson
Was physician already notified: Yes
Reason for Consult/Procedure: left plueral effusion loculated larger
Acknowledgement that appropriate orders are entered: Yes
WOUND/OSTOMY CONSULT Routine
Reason for Consult: left foot, sacrum stage 1-2
Acid Fast Culture & Smear Routine
GEO Source: Pleural Fluid
Specimen Description:
Comment: post procedure
Body Fluid Amylase Routine
Fluid Source: Pleural
Body Fluid Cell Count Routine
What is the Body Fluid: pleural fluid
Comment: post procedure
Body Fluid Glucose Routine
Fluid Source: Pleural
Body Fluid LDH Routine
Fluid Source: Pleural
Body Fluid Protein Routine
Fluid Source: Pleural
Body Fluid Triglycerides Routine
Fluid Source: Pleural
Body Fluid pH Routine
Fluid Source: Pleural
Fluid Culture with Gram Stain Routine
GEO Source: Pleural Fluid
Specimen Description:
Comment: post procedure
Fungus Culture Routine
GEO Source: Pleural Fluid
Specimen Description:
Fungus Smear Routine
GEO Source: Pleural Fluid
Specimen Description:
Gram Stain Routine
GEO Source: Pleural Fluid
Specimen Description:
Comment: POST PROCEDURE
Activity As Directed
Activity Level: With Assistance
Bedside Glucose Monitoring As Directed
Frequency: AC&HS
Additional Instructions:: Change to q6h if pt on TPN, tube feeding or not eating
Intake/ Output As Directed
Frequency: Per unit guidelines
Vital Signs As Directed
Frequency: Per unit guidelines
Weight As Directed
Frequency: Daily
Bedside Cytology Routine
Source: Pleural Fluid, Left
Clinical Impression: left plueral fluid chf
IRAD Cytology Routine
Source: Pleural Fluid, Left
Clinical Impression: hypoxia
O2 Therapy [RESP] Routine
Nasal Cannula Liter Flow: 2 LPM
Titrate/Wean O2 to maintain O2 sat greater than (%): 92
Pulse Ox/spot Check [RESP] Routine
Quantity: 1
Ot Eval And Treat Routine
Pt Eval And Treat Routine
Activity Level: With Assistance
DX Deep Vein Thrombosis Video Routine
06/11/24 21:04
Metoprolol Xl [Toprol Xl] 12.5 mg PO QPM
06/11/24 22:00
Artificial Tears (Pf) [Refresh Eye Drops (Pf)] 1 drops RIGHT EYE HS
Pantoprazole [Protonix] 40 mg PO Q48H
06/11/24 23:06
BMP [Basic Metabolic Panel] Urgent
06/12/24 04:25
Complete Blood Count/With Diff IN AM
Comprehensive Metabolic Panel IN AM
06/12/24 07:30
Insulin Aspart Corrective Low [Novolog Flexpen-Low Resistance] See Protocol SC AC
06/12/24 08:00
Amiodarone [Pacerone] 200 mg PO DAILY
Aspirin Low Dose EC [Aspir Low (Enteric Coated)] 81 mg PO DAILY
Dapagliflozin [Farxiga] 10 mg PO DAILY
Ezetimibe [Zetia] 10 mg PO DAILY
Oxybutynin Chloride [Ditropan] 2.5 mg PO BID
06/13/24 06:00
Complete Blood Count/With Diff IN AM
Comprehensive Metabolic Panel IN AM
06/14/24 06:00
Complete Blood Count/With Diff IN AM
Comprehensive Metabolic Panel IN AM
06/15/24 06:00
Complete Blood Count/With Diff IN AM
Comprehensive Metabolic Panel IN AM
Abnormal Lab Results
06/11/24
14:23
RBC 3.99 L 10^6/uL
(4.70-6.10)
Hgb 12.3 L g/dL
(13.0-18.0)
MCV 98.2 H fL
(80.0-94.0)
MCHC 31.4 L g/dL
(33.0-37.0)
RDW 17.6 H %
(11.5-14.5)
MPV 11.2 H fL
(7.4-10.4)
Lymphocytes % 19.0 L %
(20.5-51.1)
Potassium 6.0 H mmol/L
(3.5-5.1)
BUN 48 H mg/dl
(9-20)
Glucose 207 H mg/dl
(70-99)
Phosphorus 4.6 H mg/dl
(2.5-4.5)
Total Protein 5.9 L g/dl
(6.3-8.2)
Albumin 3.3 L g/dl
(3.5-5.0)
06/11/24 14:23
06/11/24 14:23
Vital Signs
Initial and Last Documented VS:
Initial Vital Signs
Temp Pulse Resp BP Pulse Ox
97.4 F 69 16 98/57 95
06/11/24 13:34 06/11/24 13:34 06/11/24 13:34 06/11/24 13:34 06/11/24 13:34
Last Documented Vital Signs
Temp Pulse Resp BP Pulse Ox
99.1 F 73 15 92/52 98
06/12/24 22:52 06/12/24 23:00 06/12/24 23:00 06/12/24 23:00 06/12/24 23:00
<Iman Ledesma MD, Resident - Last Filed: 06/12/24 23:25>
MDM/Problems Addressed
Differential Diagnosis Includes:
Acute exacerbation of heart failure, pneumonia, pulmonary edema, acute exacerbation of COPD, impending respiratory failure, pleural effusions.
Chronic conditions affecting care: DM, HTN, CAD, Cardiomyopathy and COPD
<Iman Ledesma MD, Resident - Last Filed: 06/12/24 23:25>
*Radiology
Radiology exam reviewed: preliminary read by ED provider and radiology read reviewed
*Pulse Oximetry
Patient hypoxic: no
*EKG
Interpreted by ED Provider?: Yes
EKG Intrepretation Date: 06/11/24
EKG Intrepretation Time: 02:45
Interpretation: abnormal
Comparison EKG: changes noted
Rate: normal
Rhythm: PVC's
[place]: left axis deviation
Interval: normal QT interval
QRS Pattern: normal QRS
Ischemia: no ischemia
*Aqua Ammonia Operator Interpretation
Rate: normal
Interpretation: abnormal
Heart Rate: 80
Rhythm: PVC's
*Critical Care Note
Total Time (30-74mins, 75-104mins- exclusive of procedures): Not Applicable
ED Attending Note
<Iman Ledesma MD, Resident - Last Filed: 06/12/24 23:25>
-
Portions of this chart may have been created with voice recognition software.� Occasional wrong word or��sound alike� substitutions may have occurred due to the inherent limitations of voice recognition software.
<Conor Johnson DO - Last Filed: 06/11/24 20:14>
ED Attending Note
Patient seen and examined by attending physician: Yes
I performed a history and physical exam of patient and discussed management with resident, I reviewed resident's note and agree with documented findings and plan of care.: Yes
ED Attending Note:
I agree with the residents note
83-year-old male presents due to profound weakness, shortness of breath with minimal exertion as well as conversational dyspnea, nausea. Patient has been feeling progressively unwell for the past week to two. Today he is significantly nauseous.
He has significant shortness of breath with minimal movement. He is also noted some lower extremity edema. Patient was hospitalized about 5 to 6 weeks ago after a syncopal episode. He was found to have slow VT on his ICD. Patient had a cardiac
cath which was deemed to be stable. No stents were placed. An echo was performed which showed a decreased ejection fraction around 25%. Patient was started on amiodarone and statins. His LFTs bumped and so the statins were discontinued. Patient
does continue to be on amiodarone. No known fever that the patient feels very cold and has chills.
General: Awake, Alert, appears to feel unwell' also chronically ill
Vitals: Somewhat hypothermic on rectal temperature, borderline blood pressure though consistent with his previous hospitalization measurements
Head: Atraumatic
Eyes: Pupils equal, EOMI
Throat: Airway intact, no exudates, dry mucosa
Neck: Trachea midline
Lungs: Crackles bilateral lower lung field
Heart: Regular rate, no murmurs
Abd: Soft, Nontender, No pulsatile mass
Neuro: Grossly nonfocal
Skin: Warm, dry, no rash
Extremities: pulses equal b/l, 2+ edema
EKG: Atrial paced, ST depression V3 through V6. Some changes more consistent with lead placement.
CXR shows pulmonary edema with b/l effusions.
Pt clearly in heart failure. He does feel cool to touch and has prerenal azotemia so concern for declining EF. Case discussed with Dr. Banda who came to eval pt. Agree with gentle diuresis for now.
Discharge Plan
Departure
Patient Disposition: Admit
Date of Disposition: 06/11/24
Time of Disposition: 16:00
Admit to: IVU
Presentation/result/management discussed w/ accepting MD/DO: Hospitalist
Condition: Serious
Discharge Problem:
Heart failure, Hypotension, Hypothermia, Acute hyperkalemia
Interventions
Interventions:
*Risk Screen - Suicide Last Done: 06/11/24 13:40
*Neglect/Abuse Screening Last Done: 06/11/24 13:40
*ED COVID-19 Vaccine History Last Done: 06/11/24 13:40
*Nursing Disposition Last Done: 06/11/24 20:07
ED- Cardiac Assessment Last Done: 06/11/24 13:40
ED- Neurological Assessment Last Done: 06/11/24 13:41
ED- Pulmonary Assessment Last Done: 06/11/24 13:41
Discharge Date and Time
Discharge Date/Time: 06/11/24 20:08
[2024-06-11 15:00] LABS: % Basophils 0.4 % (0-2); % Eosinophils 1.5 % (0-6); % Immature Granulocytes 0.3 % (0-0.5); % Monocytes 7.8 % (1.7-9.3); Absolute Eosinophils 0.1 10^3/uL (0-0.7); Absolute Lymphocytes 1.3 10^3/uL (1.2-3.4); Absolute Monocytes 0.5 10^3/uL (0.1-0.6); Absolute Neutrophils 4.9 10^3/uL (1.4-6.5); Hematocrit 39.2 % (39.0-52.0); Hemoglobin 12.3 g/dL (13.0-18.0); Mean Corp Hgb Conc. 31.4 g/dL (33.0-37.0); Mean Corpuscular Hgb 30.8 pg (27.0-31.0); Mean Corpuscular Volume 98.2 fL (80.0-94.0); Mean Platelet Volume 11.2 fL (7.4-10.4); Nucleated Red Blood Cells % 0 % (-); Platelet Count 299 10^3/uL (130-400); Red Blood Cell Count 3.99 10^6/uL (4.70-6.10); Red Cell Dist. Width 17.6 % (11.5-14.5); White Blood Cell Count 6.9 10^3/uL (4.8-10.8)
[2024-06-11 15:23] LABS: ALT (SGPT) 14 U/L (0-50); AST (SGOT) 19 U/L (17-59); Albumin 3.3 g/dl (3.5-5.0); Alkaline Phosphatase 98 U/L (38-126); Blood Urea Nitrogen 48 mg/dl (9-20); Carbon Dioxide 22 mmol/L (22-30); Chloride 100 mmol/L (98-107); Estimated Creatinine Clearance 44 ml/min; Glucose 207 mg/dl (70-99); Magnesium 1.8 mg/dl (1.6-2.3); Phosphorus 4.6 mg/dl (2.5-4.5); Sodium 138 mmol/L (135-145); Total Bilirubin 0.7 mg/dl (0.2-1.3); Total Protein 5.9 g/dl (6.3-8.2); eGFR 54.51
[2024-06-11 15:34] LABS: NT-proBNP > 27000 pg/ml; Troponin I < 0.012 ng/ml
[2024-06-11 15:54] LABS: TSH Reflex To Free T4 2.66 uIU/ml (0.47-4.68)
--- NOTE | 2024-06-11 16:23 | HPS.HSE ---
Family Physician
-
Family Physician: Kushal Keen
Chief Complaint
-
Shortness of breath, orthopnea, fatigue with generalized weakness and weight gain
History of Present Illness
83-year-old male over the last 2 weeks started feeling fatigue with generalized weakness that is progressively worsened and is associated with shortness of breath on exertion. He also reports some orthopnea has been propping his head up with
pillows to 30 degrees to sleep. He also reports a dry cough with some chills and rigors for the past 2 days along with nausea last night and elevated blood sugars greater than 200 over the past 2 days. He had slight weight gain of 2 pounds 146 to
148 pounds, although his weight here in the ER is 157.3 pounds which would be a weight gain of 9.3 pounds in the past 2 days. He reports some mild nausea but no abdominal pain or vomiting. He denies headache, chest pain, palpitations, abdominal
pain, vomiting, diarrhea, urinary symptoms, sick contacts, blood in stool. He was seen by his PCP who sent him to outpatient facility for chest x-ray and he was told that he had' some fluid in his lungs' and given a prescription for Lasix for which
she has not started yet. His reports he was taken off his Depakote 250 mg by his PCP 9 days ago on 06/04/2024 due to no reported seizures and EEG in hospital was negative for seizure activity.
He has PMH of persistent hypotension, CAD s/p CABG, Chronic HFrEF, slow VT s/p ICD and PPM, DM 2 with neuropathy, COPD, Urinary urgency, HLD syncope described as staring spells 2030 seconds in April with neurology recommending Depakote as concern
for seizures.
He had in April ICD interrogation in ED showed VT without reaching threshold for shock. Cardiology did R/L heart catheterization without new focus for VT. Verapamil stopped, Metoprolol d/c. LFT increased with amiodarone load, but later improved.
Diuresis and GDMT is limited due to persistent hypotension
Medical History
Past Medical History
Past Medical History: Reports Other
Additional Past Medical History:
ASCVD (CAD, Carotid Disease, PAD)
SVT / VT s/p AICD Placement
DM-II
COPD
Cervical / Lumbar DDD
Past Surgical History: Reports Other
Additional Past Surgical History:
Cervical / Lumbar Surgeries (remote)
BiV AICD Placement (03/12/24)
CABG x 2
Left fem-peroneal bypass
Left SFA Stent
Right CEA
Left Carotid Stent
T&A
Melanoma Excision
Bilateral Hand Surgeries
Social History
Tobacco: Former Smoker (Quit smoking 40 years ago. Approx 20 to year 1 pack use stopped age 40)
Alcohol: Former (No alcohol in 35 years.)
Drug: None
Personal:
Living: With Family ( Kalie)
Family History
Family History: Adopted
Allergies / Home Medications
Allergies reflects when Allergies were last updated in [employer].
Home Medications with original date entered in [employer]
Allergy/Medication List:
Allergies
Allergy/AdvReac Type Severity Reaction Status Date / Time
Penicillins Allergy leg cramps Verified 03/22/24 08:52
as child-
pt denies
at this
time
Home Medications
aspirin 81 mg tablet,delayed release 81 mg PO DAILY Blood clot prevention/tx 04/22/11
dapagliflozin propanediol 10 mg tablet (Farxiga) 10 mg PO DAILY Diabetes 06/07/18
polyvinyl alcohol-povidone (PF) 1.4 %-0.6 % eye drops in a dropperette (Refresh Classic (PF)) 1 drp RIGHT EYE HS Eye condition 01/30/21
metformin 500 mg tablet 1,000 mg PO BID Diabetes 05/05/22
albuterol sulfate 90 mcg/actuation aerosol inhaler 1 puff inhalation R Q6HPRN PRN SOB 03/10/24
omeprazole 20 mg tablet,delayed release 20 mg PO Q48H 03/10/24
umeclidinium 62.5 mcg/actuation blister powder for inhalation (Incruse Ellipta) 1 inh inhalation R DAILY Lung/Breathing Issues 03/10/24
acetaminophen 500 mg tablet (Tylenol Extra Strength) 1,000 mg PO Q6HPRN PRN mild pain 04/23/24
oxybutynin chloride 5 mg tablet,extended release 24 hr 5 mg PO DAILY 04/23/24
amiodarone 200 mg tablet 200 mg PO DAILY #30 tabs 05/02/24
ezetimibe 10 mg tablet 10 mg PO DAILY #30 tabs 05/02/24
metoprolol succinate 25 mg tablet,extended release 24 hr 12.5 mg (1/2 x 25 mg) PO QPM #30 tabs 05/02/24
polyethylene glycol 3350 17 gram oral powder packet (HealthyLax) 17 g PO BIDPRN PRN Constipation #30 ea 05/02/24
collagenase clostridium histo. 250 unit/gram topical ointment (Santyl) 1 applic topical DAILY wounds on feet 06/11/24
sennosides 8.6 mg-docusate sodium 50 mg tablet 1 tab PO BIDPRN PRN constipation 06/11/24
Review of Systems
-
History Source: Patient and Family ( Kalie)
A 12 point ROS was completed and negative except as noted: Yes
Constitutional: Reports Weight Gain (2 pounds in the past 2 days although our scales reflecting 9 pound weight gain); Denies Fever
EENT: Denies Sore Throat or Runny Nose
Respiratory: Reports Cough (Nonproductive) and Trouble Breathing (Shortness of breath, MONTES, orthopnea)
Cardiac: Denies Chest Pain, Diaphoresis, Palpitations or Syncope
Abdomen/GI: Reports Nausea; Denies Abdominal Pain, Vomiting, Diarrhea, Constipated, Bloody Stools or Black Stools
: Denies Dysuria, Frequency, Flank Pain, Incontinence, Difficulty Voiding, Urgency or Dark Urine
Musculoskeletal: Denies Joint Pain or Edema
Skin: Denies Itching or Rash
Neurological: Reports Weakness (Generalized); Denies Dizzy or Headache
Endocrine: Reports No Symptoms
Hematologic/Lymphatic: Reports No Symptoms
Psych: Reports Calm
Physical Exam
Vital Signs
Vital Signs
Temp Pulse Resp BP Pulse Ox
97.4 F 69 19 102/40 96
06/11/24 13:34 06/11/24 15:15 06/11/24 15:15 06/11/24 15:01 06/11/24 15:15
Physical Exam
General: Conversant; No Pain, Fever or Chills
HEENT: NormoCephalic, Anicteric, Moist mucous membranes, PERRLA, [place] Conjunctivae, No Ptosis and Oxygen (2 L nasal cannula)
Respiratory: Other (Left lung field diminished breath sounds secondary to left pleural effusion); No Wheezes, Rales or Rhonchi
Cardiac: S1/S2 and Other (Atrial paced with occasional PVCs, cardiac defibrillator present right upper chest wall); No Murmur, Rub, Gallop or Peripheral Edema
Breast: Deferred by me
GI: Soft, Non Tender, Non Distended, Normal Bowel Sounds and No Hepatosplenomegaly
Rectal: Deferred by Provider
Genito-urinary: Deferred by me
Musculoskeletal: No Clubbing, No Cyanosis and No Edema
Skin: Warm, Dry and Rash; No Jaundice
Neuro: AO x 3 and No Sensory Deficits; No Slurred Speech, Facial Droop, Tremors or Sedated
Psych: Calm
Laboratory Results
-
06/11/24 14:23
06/11/24 14:23
Laboratory Results
Total Bilirubin 0.7 mg/dl (0.2-1.3) 06/11/24 14:23
AST 19 U/L (17-59) 06/11/24 14:23
ALT 14 U/L (0-50) 06/11/24 14:23
Alkaline Phosphatase 98 U/L (38-126) 06/11/24 14:23
Troponin I < 0.012 ng/ml 06/11/24 14:23
Data Reviewed
-
Diagnostic Radiology: Report Reviewed by me
Lab Data: Labs Reviewed by me
Impression/Plan
-
Impression/plan:
Admit to IMU
# Acute on chronic chronic HFrEF
#Moderate-severe MR
BNP>85101
Weight 71.5 kg/157 LBS-patient reports his weight at home was 148 LBS on 06/09/24 = weight gain of 9.3 pounds in the past 2 days
-I/O, daily weights
-IV Lasix 20 mg given in ER, cardiology will increase Lasix to 20 mg twice daily tomorrow 06/12/2024
-Seen by [facility] cardiology at bedside Dr Banda
- covid pending
-Continue Farxiga 10 mg daily
Echo 04/25/2024: EF 20-25%, MODERATE-SEVERE MR: GDMT limited by hypotension.
#Moderate loculated left pleural effusion
-Progressed since 04/24/2024
-IR for thoracentesis
CXR
1. Slight prominence of the interstitial markings diffusely concerning for mild CHF. Clinical and laboratory correlation recommended. New
2. Moderate loculated left pleural effusion. Progressed.
3. Tiny loculated right pleural effusion. New.
#Hypotension persistent
BP 98/57-this appears to be baseline for patient on and off back to 2020
-Monitor BP
-May continue metoprolol succinate 12.5 mg every afternoon hold if HR less than 90
#Acute hyperkalemia 2/2
K 6.0
-Insulin 10 units IV now
-Dextrose 1 amp
-Calcium gluconate over 30 minutes
-Repeat BMP every 6 hours
# Stage I/II sacral ulcer present on admission
#Wound left lateral foot present on admission
#PAD s/p LE stents
-Consult wound care
#CKD 3B
Creat 1.3, CrCl 44 appears baseline
Follow BMP
#DM type 2 with neuropathy
-BS 207
-Insulin SS low, DM diet, AccuCheck
-HgbA1c 7.0% on 04/24/2024
-Hold metformin, glimepiride
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
#CAD s/p CABG
-s/p cath on 04/25/24 by cardiology- cont GDMT, might need ablation eventually. Cont Amiodarone. No stent placed as patient w/o chest pain
Verapamil stopped ,Toprol decreased in April admission
-Continue amiodarone 200 mg daily, aspirin 81 mg daily, metoprolol succinate 12.5 mg every afternoon
#Syncopal episodes with staring spell March 2024 thought to be possible seizures by neurology
EEG without signs of seizures March 2024
Was on Depakote 250 mg daily that was stopped 9 days ago on 06/03/2024 by patient's PCP
-Monitor for any seizure activity since PCP took patient off 2 days ago Depakote
#HLD
Continue Zetia 10 mg daily
#GERD
Continue omeprazole 20 mg to 48H
#Macrocytic anemia
Hgb 12.3, MCV 98.2 appears baseline
#Constipation hx
-Continue MiraLAX 17 g twice daily as needed, Senokot 1 tab twice daily as needed
#COPD-no acute exacerbation
Former smoker 2000 pack a day quit age 40
-Continue albuterol, Incruse Ellipta
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
#BPH
Continue oxybutynin 5 mg daily
Other PMH:
#Liver hemangioma
#R renal cyst- no f/u advised
DVT prophylaxis
Subcu Lovenox
DNR per Kalie at bedside with patient
--- NOTE | 2024-06-11 16:45 | CON.CAR ---
Consultation
Consultation Request
Date/Time Consultation Requested: June 11, 2024 3:45 PM
Date/Time Consultation Performed: June 11, 2024 4:45 PM
Requesting Provider: Hospitalist
Performing Provider: Naren Banda
Reason for Consultation: Heart failure
Medical History
-
Chief Complaint: weakness SOB
History of Present Illness:
83-year-old male with past medical history of VT status post ICD, acute on chronic heart failure reduced ejection fraction, CAD status post CABG in May 2018, severe carotid stenoses status post CEA and stenting, PAD, diabetes, COPD who is here
for approximately 2 weeks of weakness. This has been especially prevalent over the last several days. He has noticed decreased appetite and decreased p.o. intake. Over the last 2 days he was too weak to get up and weigh himself. He does say that
his weight has essentially been stable at approximately 148 pounds. He does think that his legs have had worsening swelling. Because of his significant weakness and some shortness of breath he presented to the emergency room. In the emergency
room he was found to have a moderate-sized left loculated pleural effusion tiny loculated right pleural effusion and mild CHF on chest x-ray. We were consulted for heart failure.
Past Medical History
Past Medical History: Arrhythmias (Medical tachycardia), CAD, CHF (LVEF 20%), COPD, CVA (TIA), HTN, Hypercholesterolemia, NIDDM and Other
Past Surgical History: Cardiac (CABG x 2; dual-chamber ICD-[employer] 02/2024) and Other (Left fem-peroneal bypass, Left SFA Stent, Right CEA Left Carotid Stent, T&A, Melanoma Excision, Bilateral Hand Surgeries)
Social History
Tobacco: Former Smoker
Personal:
Living: With Family
Family History
Family History: Reviewed & Not Pertinent
Allergies / Home Medications
Allergy/AdvReac Type Severity Reaction Status Date / Time
Penicillins Allergy leg cramps Verified 03/22/24 08:52
as child-
pt denies
at this
time
�Medication �Instructions �Recorded �Confirmed �Type
aspirin 81 mg tablet,delayed 81 mg PO DAILY Blood clot 04/22/11 06/11/24 History
release prevention/tx
dapagliflozin propanediol 10 mg 10 mg PO DAILY Diabetes 06/07/18 06/11/24 History
tablet (Farxiga)
polyvinyl alcohol-povidone (PF) 1 drp RIGHT EYE HS Eye condition 01/30/21 06/11/24 History
1.4 %-0.6 % eye drops in a
dropperette (Refresh Classic (PF))
metformin 500 mg tablet 1,000 mg PO BID Diabetes 05/05/22 06/11/24 History
albuterol sulfate 90 mcg/actuation 1 puff inhalation R Q6HPRN PRN SOB 03/10/24 06/11/24 History
aerosol inhaler
omeprazole 20 mg tablet,delayed 20 mg PO Q48H 03/10/24 06/11/24 History
release
umeclidinium 62.5 mcg/actuation 1 inh inhalation R DAILY 03/10/24 06/11/24 History
blister powder for inhalation Lung/Breathing Issues
(Incruse Ellipta)
acetaminophen 500 mg tablet 1,000 mg PO Q6HPRN PRN mild pain 04/23/24 06/11/24 History
(Tylenol Extra Strength)
oxybutynin chloride 5 mg 5 mg PO DAILY 04/23/24 06/11/24 History
tablet,extended release 24 hr
amiodarone 200 mg tablet 200 mg PO DAILY #30 tabs 05/02/24 06/11/24 Rx
ezetimibe 10 mg tablet 10 mg PO DAILY #30 tabs 05/02/24 06/11/24 Rx
metoprolol succinate 25 mg 12.5 mg (1/2 x 25 mg) PO QPM #30 05/02/24 06/11/24 Rx
tablet,extended release 24 hr tabs
polyethylene glycol 3350 17 gram 17 g PO BIDPRN PRN Constipation 05/02/24 06/11/24 Rx
oral powder packet (HealthyLax) #30 ea
collagenase clostridium histo. 250 1 applic topical DAILY wounds on 06/11/24 06/11/24 History
unit/gram topical ointment (Santyl) feet
sennosides 8.6 mg-docusate sodium 1 tab PO BIDPRN PRN constipation 06/11/24 06/11/24 History
50 mg tablet
Review of Systems
-
All other systems: Negative unless noted
Physical Exam
Vital Signs
Temp Pulse Resp BP Pulse Ox
97.4 F 69 19 102/40 96
06/11/24 13:34 06/11/24 15:15 06/11/24 15:15 06/11/24 15:01 06/11/24 15:15
Lab Results
06/11/24 14:23
Troponin I < 0.012 ng/ml 06/11/24 14:23
Nnb-V-Umnkqusewxt Pept > 32934 pg/ml 06/11/24 14:23
Physical Exam
General: Well Developed and Other (Chronically ill-appearing)
HEENT: Normocephalic
Respiratory: Crackles and Non Labored Respirations
Cardiac: Regular Rhythm and Other (Distant heart sounds)
GI: Soft
Musculoskeletal: Edema (1-2+ bilateral lower extremity edema)
Skin: Other (Cool lower extremities)
Neuro: AO x 3
Psych: Calm
Impression / Plan
-
A: 83-year-old male with past medical history of VT status post ICD, acute on chronic heart failure reduced ejection fraction, CAD status post CABG in May 2018, severe carotid stenoses status post CEA and stenting, PAD, diabetes, COPD who is
here for approximately 2 weeks of weakness. We were consulted for HF exacerbation.
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
- had not been on lasix agree with IV lasix 20 mg, he has started to urinate, will increase to bid tomorrow
- Standing daily weights
- GDMT limited by BP: cont metoprolol and Farxiga
[place] loculated pleural effusion
- consider thoracentesis if able
Hyperkalemia
- per primary
VT s/p ICD
- Jun 10 device interrogation showed Oct 31 NSVT lasting 2s
- cont amio and metop
CAD s.p CAGB
- stable cont aspirin
COPD
- chronic
PAD and Carotid artery disease
- cont aspirin
Data Reviewed
-
EKG: Tracing Personally Visualized and interpreted (paced)
Radiology: Report Reviewed by me
Medical Tests (Nuc Med, Echo etc): Report Reviewed by me
Labs: Labs Reviewed by me
--- NOTE | 2024-06-11 17:18 | W.PN.UPDATE ---
Update Note
Progress Note Update
This is an addendum to the H&P written by Jennifer Ramires on 06/11/2024. Patient seen and examined independently with ARCHITECTURE ANALYST.
83-year-old male past medical history of CAD status post CABG, VT status post ICD, chronic HFrEF, moderate to severe mitral regurgitation, PAD status post lower extremity stents, syncopal episodes, hypertension, CVA/TIA, diabetes, diabetic
neuropathy, COPD, hyperlipidemia, presenting with fatigue, weakness and shortness of breath and orthopnea and cough. Possible 8 to 10 pound weight gain recently.
He was hospitalized 5 to 6 weeks ago for syncopal episode and found to have slow VT and ICD. He had cardiac catheterization which was stable.
Chest x-ray shows slight prominence of interstitial markings concerning for mild CHF. Moderate loculated pleural effusion. Cardiac BNP greater than 27,000. Labs show potassium of 6. EKG shows paced rhythm, peaked T waves.
Examination consistent with acute CHF exacerbation. 20 IV Lasix given due to chronic hypotension with systolic blood pressure 90-100. Try to increase Lasix to 20 twice daily tomorrow. Given insulin dextrose and calcium gluconate. Recheck BMP in
6 hours. Cardiology consulted. IR consult for thoracentesis.
[2024-06-11] MEDS: CALCIUM GLUCONATE 100 IV (18:34)
[2024-06-11] MEDS: ZOFRAN 4 MG IV (18:34)
[2024-06-11] MEDS: DEXTROSE 50% SYRINGE 25 GRAMS IV (18:34)
[2024-06-11] MEDS: LASIX 20 MG IV (18:40)
[2024-06-11] MEDS: NOVOLIN R 10 UNITS IV (18:40)
[2024-06-11 19:41] LABS: COVID-19 Antigen Negative (Negative)
[2024-06-11] MEDS: LOVENOX 40 MG SC (21:21)
[2024-06-11] MEDS: REFRESH EYE DROPS (PF) 1 DROPS RIGHT EYE (21:21)
[2024-06-11] MEDS: PROTONIX 40 MG PO (21:22)
[2024-06-11] MEDS: TOPROL XL 12.5 MG PO (21:22)
[2024-06-11 21:30] LABS: Glucose - Point of Care 72 mg/dl (70-99)
--- NOTE | 2024-06-11 21:32 | PTCARENOTE ---
Pt admitted to IMU. AAOx3, pleasant, flat affect. A-Paced w/ BBB and PVC in the monitor. B/L +2 pedal and +1 LE edema. Lung sounds are diminshed and fine crackles at the bases. SaO2 94% 3L NC. Shallow dyspneic w/ exertion. Occasional productive
moist cough. Q2 turn. Pt has Dm ulcers in B/L feet and stage 2 sacrum ulcer. Wound care provided. Call mtz within reach
[2024-06-11 23:34] LABS: Blood Urea Nitrogen 48 mg/dl (9-20); Calcium 8.7 mg/dl (8.4-10.2); Carbon Dioxide 22 mmol/L (22-30); Chloride 104 mmol/L (98-107); Estimated Creatinine Clearance 46 ml/min; Glucose 91 mg/dl (70-99); Sodium 141 mmol/L (135-145); eGFR > 60.00
[2024-06-12] VITALS (27 sets, daily range): BP systolic 84–105; BP diastolic 43–85; PULSE 71–83; O2SAT 95–96; BMI 20.8
[2024-06-12 04:53] LABS: % Basophils 0.8 % (0-2); % Eosinophils 3.7 % (0-6); % Immature Granulocytes 0.3 % (0-0.5); % Lymphocytes 28.9 % (20.5-51.1); % Monocytes 8.6 % (1.7-9.3); % Neutrophils 57.7 % (42.2-75.2); Absolute Basophils 0.1 10^3/uL (0-0.2); Absolute Eosinophils 0.2 10^3/uL (0-0.7); Absolute Lymphocytes 1.7 10^3/uL (1.2-3.4); Absolute Monocytes 0.5 10^3/uL (0.1-0.6); Absolute Neutrophils 3.5 10^3/uL (1.4-6.5); Hematocrit 35.9 % (39.0-52.0); Hemoglobin 11.5 g/dL (13.0-18.0); Mean Corpuscular Hgb 30.9 pg (27.0-31.0); Mean Corpuscular Volume 96.5 fL (80.0-94.0); Mean Platelet Volume 10.7 fL (7.4-10.4); Nucleated Red Blood Cells % 0 % (-); Platelet Count 285 10^3/uL (130-400); Red Blood Cell Count 3.72 10^6/uL (4.70-6.10); Red Cell Dist. Width 17.2 % (11.5-14.5)
[2024-06-12 05:19] LABS: ALT (SGPT) 12 U/L (0-50); AST (SGOT) 18 U/L (17-59); Albumin 2.7 g/dl (3.5-5.0); Alkaline Phosphatase 82 U/L (38-126); Blood Urea Nitrogen 47 mg/dl (9-20); Calcium 8.5 mg/dl (8.4-10.2); Carbon Dioxide 22 mmol/L (22-30); Chloride 104 mmol/L (98-107); Estimated Creatinine Clearance 42 ml/min; Glucose 119 mg/dl (70-99); Potassium 5.1 mmol/L (3.5-5.1); Sodium 139 mmol/L (135-145); Total Bilirubin 0.5 mg/dl (0.2-1.3); Total Protein 5.2 g/dl (6.3-8.2); eGFR 54.51
[2024-06-12] MEDS: SPIRIVA RESPIMAT 2.5 MCG 2 PUFF INH (07:42)
--- NOTE | 2024-06-12 07:43 | W.PN.HOSP.TC ---
Today's Communication/Plan
-
see A/P
Assessment / Plan
Assessment / Plan
HPI: 83-year-old male past medical history of CAD status post CABG, VT status post ICD, chronic HFrEF, moderate to severe mitral regurgitation, PAD status post lower extremity stents, syncopal episodes, hypertension, CVA/TIA, diabetes, diabetic
neuropathy, COPD, hyperlipidemia, presented with fatigue, weakness, shortness of breath, orthopnea and cough. Possible 8 to 10 pound weight gain recently.
He was hospitalized 5 to 6 weeks ago for syncopal episode and found to have slow VT and ICD. He had cardiac catheterization which was stable.
Chest x-ray showed slight prominence of interstitial markings concerning for mild CHF. Moderate loculated pleural effusion. Cardiac BNP greater than 27,000. Labs show potassium of 6 on admission. EKG shows paced rhythm, peaked T waves.
A/P:
# Acute on chronic HFrEF
# Moderate-severe MR
# Acute hypoxic respiratory insufficiency
Pt placed on 4L NC, wean as tolerated, he is NOT on home O2
Echo 04/25/2024: EF 20-25%, MODERATE-SEVERE MR
s/p IV Lasix 20 mg x1, increased to IV Lasix 20 BID with holding parameter
daily weight, I/O
Card on board
Continue ALUMINUM BOAT INSPECTOR Farxiga 10 mg daily
# Moderate loculated left pleural effusion
Progressed since 04/24/2024
IR for thoracentesis, follow thora labs when available
# Hypotension persistent
Toprol with holding parameter
# hyperkalemia on admission, resolved after treatment
# Stage I/II sacral ulcer present on admission
# Wound left lateral foot present on admission
# PAD s/p LE stents
Consult wound care
# DM type 2 with neuropathy
HgbA1c 7.0% on 04/24/2024
ISS low, DM diet, AccuCheck
Hold metformin, glimepiride
# h/o VT with slow response s/p ICD
# CAD s/p CABG
s/p cath on 04/25/24 by cardiology. No stent placed as patient w/o chest pain
Cont Amiodarone.
Toprol was decreased
# Syncopal episodes with staring spell March 2024 thought to be possible seizures by neurology
EEG without signs of seizures March 2024
Was on Depakote 250 mg daily that was stopped on 06/03/2024 by patient's PCP
Monitor for any possible seizure activity since PCP took patient off Depakote
# HLD
Continue Zetia 10 mg daily
# GERD
Continue omeprazole
# Constipation hx
Continue MiraLAX 17 g twice daily as needed, Senokot 1 tab twice daily as needed
# COPD, stable
Continue albuterol, Incruse Ellipta
# History of alcohol abuse,
has been in recovery for 35 years per
# BPH
Continue oxybutynin 5 mg daily
Other PMH:
# Liver hemangioma
# R renal cyst- no f/u advised
DVT prophylaxis: Subcu Lovenox
Code status DNR , confirmed with pt 06/12/24
d/w on the phone
total time spent 51 min
Anticipated Discharge: > 48 hours
Subjective/Interval History
-
Date of Service: June 12, 2024
Objective Data
-
Labs:
Laboratory Results
06/11/24 06/12/24
23:06 04:25
WBC 6.0
Hgb 11.5 L
Hct 35.9 L
Plt Count 285
Sodium 141 139
Potassium 5.0 5.1
Chloride 104 104
Carbon Dioxide 22 22
BUN 48 H 47 H
Creatinine 1.2 1.3
Glucose 91 119 H
Calcium 8.7 8.5
Total Bilirubin 0.5
AST 18
ALT 12
Alkaline Phosphatase 82
Vital Signs:
Vital Signs
Temp Pulse Resp BP Pulse Ox
36.4 C 73 12 102/72 95
06/12/24 04:59 06/12/24 04:05 06/12/24 04:05 06/12/24 04:05 06/12/24 04:05
I&O
06/11/24 06/12/24 06/13/24
06:59 06:59 06:59
Intake Total 240 / 240
Output Total 200 / 200
Balance 40 / 40
Review of Systems
-
Respiratory: Reports Trouble Breathing
Physical Exam
-
General: Well Developed, Well Nourished, Comfortable, Respiratory Distress, Conversant and Appears Chronically Ill
HEENT: Normocephalic and Oxygen (4L NC)
Respiratory: Non Labored Respirations and Decreased Breath Sounds; Negative Accessory Resp Muscle Use
Cardiac: Regular Rhythm and S1/S2
GI: Soft, Nontender and Nondistended
Musculoskeletal: No Clubbing, No Cyanosis, Edema, Right Lower Extrem and Edema, Left Lower Extrem
Neuro: Awake and Alert
Psych: Calm and Intact Judgement/Insight
Data Reviewed
-
Diagnostic Radiology: Image personally visualized and interpreted and Report Reviewed by me
Labs: Labs Reviewed by me
[2024-06-12] MEDS: LASIX 20 MG IV (09:09)
[2024-06-12] MEDS: DITROPAN 2.5 MG PO (09:11)
[2024-06-12] MEDS: PACERONE 200 MG PO (09:12)
[2024-06-12] MEDS: FARXIGA 10 MG PO (09:12)
[2024-06-12] MEDS: ZETIA 10 MG PO (09:12)
[2024-06-12] MEDS: ASPIR LOW (ENTERIC COATED) 81 MG PO (09:13)
[2024-06-12] MEDS: NOVOLOG FLEXPEN-LOW RESISTANCE SC (09:16)
[2024-06-12 09:27] LABS: Glucose - Point of Care 136 mg/dl (70-99)
--- NOTE | 2024-06-12 10:12 | W.PN.CD ---
Today's Communication / Plan
-
IV lasix
Impression / Plan
-
A: 83-year-old male with past medical history of VT status post ICD, acute on chronic heart failure reduced ejection fraction, CAD status post CABG in May 2018, severe carotid stenoses status post CEA and stenting, PAD, diabetes, COPD who is
here for approximately 2 weeks of weakness. We were consulted for HF exacerbation.
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
- BID lasix, he has chronic low BP from 90-100 systolics
- Standing daily weights
- GDMT limited by BP: cont metoprolol and Farxiga
[place] loculated pleural effusion
- consider thoracentesis if able
Hyperkalemia
- per primary
VT s/p ICD
- Jun 10 device interrogation showed Apr 31 NSVT lasting 2s
- cont amio and metop
CAD s.p CAGB
- stable cont aspirin
COPD
- chronic
PAD and Carotid artery disease
- cont aspirin
Subjective: NAD frustrated with being so weak
Physical Exam
Vital Signs/Labs
Vital Signs
Temp Pulse Resp BP Pulse Ox
97.5 F 68 16 100/60 93
06/12/24 07:31 06/12/24 07:46 06/12/24 07:46 06/12/24 09:09 06/12/24 07:46
06/11/24 06/12/24 06/13/24
06:59 06:59 06:59
Actual Weight 153 lb 0.013 oz
06/12/24 04:25
06/12/24 04:25
Magnesium 1.8 mg/dl (1.6-2.3) 06/11/24 14:23
06/11/24
14:23
Cze-U-Ddrnoqnhthh Pept > 80108
LAB Results
06/11/24
14:23
Troponin I < 0.012
Physical Exam
Constitutional: No acute distress and Other (chronically ill appearing)
EENT: Anicteric
Cardiovascular: Rhythm & rate is regular and Pedal edema present (2+)
Respiratory: Respiratory effort normal and Crackles Present
GI: Soft
Neuro/Psych: AO x 3
Data Reviewed
-
Date of Service: June 12, 2024
EKG: Tracing Personally Visualized and interpreted (paced)
Echo: Report Reviewed by me
Labs: Labs Reviewed by me
--- NOTE | 2024-06-12 11:37 | CM ---
problem manager reviewed patient's chart and met with patient and patient lives with his spouse in a one story home with 2 steps to enter, patient is independent with adl's and uses a walker with ambulation, per spouse they recently obtained a power
lift chair to assist patient in home. Patient was at [facility] and was sent home with [facility] visiting nurses, rehabilitation caseworker sent a referral to [facility].
Patient is currently requiring 6 liters of oxygen 93%, patient did not need oxygen in home.
Plan; Home with [facility] will need to watch for home oxygen needs at discharge.
PCP: Dr Sudhir Keen
Pharmacy [facility]
[2024-06-12 13:31] LABS: Glucose - Point of Care 170 mg/dl (70-99)
[2024-06-12] MEDS: NOVOLOG FLEXPEN-LOW RESISTANCE 1 UNITS SC ×2 (13:52→18:21)
[2024-06-12] MEDS: LASIX 40 MG IV (16:16)
--- NOTE | 2024-06-12 16:48 | PTCARENOTE ---
0800 dose and 1600 dose of lasix given outside of parameters per discussion w/ Dr. Banda. Dr. Banda at bedside at time of administration during AM dose, updated via [employer] for PM dose.
--- NOTE | 2024-06-12 16:53 | PTCARENOTE ---
pt needing reinforcement regarding fluid restriction throughout shift. Pt expressing that he is losing too much fluid and it is making him thirsty. This RN explained reasoning for fluid restriction. Pt appears understanding. RN offered ice chips and
mouth moisturizer for oral comfort.
[2024-06-12] MEDS: TOPROL XL PO (18:22)
[2024-06-12] MEDS: LOVENOX 40 MG SC (18:23)
[2024-06-12 18:31] LABS: Glucose - Point of Care 170 mg/dl (70-99)
[2024-06-12] MEDS: REFRESH EYE DROPS (PF) 1 DROPS RIGHT EYE (20:45)
[2024-06-12] MEDS: DITROPAN PO (21:58)
[2024-06-12 21:59] LABS: Glucose - Point of Care 138 mg/dl (70-99)
--- NOTE | 2024-06-12 22:19 | PTCARENOTE ---
Pt BP remaining soft with maps 60-63. Pt saying he feelings 'different' when head is put up or down but adjusts. Pt also continues to have difficulty urinating. BS showing Pt is retaining post void. Pt is refusing to be straight cathed at this time,
Pt requesting more time too ' pee on my own'. Emotional support given. Education given on risk and benefits. Night TOBACCO CUTTER made aware, parameters added to HS medication, monitoring hourly bps.
[2024-06-13] VITALS (28 sets, daily range): BP systolic 75–105; BP diastolic 45–76; BMI 20.3
[2024-06-13 05:05] LABS: % Basophils 0.3 % (0-2); % Eosinophils 1.2 % (0-6); % Immature Granulocytes 0.3 % (0-0.5); % Lymphocytes 20.5 % (20.5-51.1); % Monocytes 8.4 % (1.7-9.3); % Neutrophils 69.3 % (42.2-75.2); Absolute Eosinophils 0.1 10^3/uL (0-0.7); Absolute Lymphocytes 1.4 10^3/uL (1.2-3.4); Absolute Monocytes 0.6 10^3/uL (0.1-0.6); Absolute Neutrophils 4.6 10^3/uL (1.4-6.5); Hematocrit 35.8 % (39.0-52.0); Hemoglobin 11.5 g/dL (13.0-18.0); Mean Corp Hgb Conc. 32.1 g/dL (33.0-37.0); Mean Corpuscular Hgb 31.3 pg (27.0-31.0); Mean Corpuscular Volume 97.3 fL (80.0-94.0); Mean Platelet Volume 10.8 fL (7.4-10.4); Nucleated Red Blood Cells % 0 % (-); Platelet Count 282 10^3/uL (130-400); Red Blood Cell Count 3.68 10^6/uL (4.70-6.10); Red Cell Dist. Width 17.2 % (11.5-14.5); White Blood Cell Count 6.6 10^3/uL (4.8-10.8)
[2024-06-13 05:26] LABS: ALT (SGPT) 12 U/L (0-50); AST (SGOT) 17 U/L (17-59); Albumin 2.7 g/dl (3.5-5.0); Alkaline Phosphatase 83 U/L (38-126); Blood Urea Nitrogen 50 mg/dl (9-20); Calcium 8.2 mg/dl (8.4-10.2); Carbon Dioxide 23 mmol/L (22-30); Chloride 101 mmol/L (98-107); Estimated Creatinine Clearance 36 ml/min; Glucose 150 mg/dl (70-99); Potassium 4.9 mmol/L (3.5-5.1); Sodium 139 mmol/L (135-145); Total Bilirubin 0.5 mg/dl (0.2-1.3); Total Protein 5.2 g/dl (6.3-8.2); eGFR 45.91
--- NOTE | 2024-06-13 07:40 | PTCARENOTE ---
Patient sent to IR for thoracentesis on 4L NC with X3 monitor.
[2024-06-13] MEDS: SPIRIVA RESPIMAT 2.5 MCG INH (08:04)
--- NOTE | 2024-06-13 08:33 | W.PN.CD ---
Today's Communication / Plan
-
Hold diuresis for GEORGINA
Continue metoprolol and dapagliflozin for heart failure
Continue amiodarone and metoprolol for NSVT (none seen on telemetry)
Impression / Plan
-
A: 83-year-old male with past medical history of VT status post ICD, acute on chronic heart failure reduced ejection fraction (20-25%), CAD status post CABG in May 2018, severe carotid stenoses status post CEA and stenting, PAD, diabetes, COPD
who is here for approximately 2 weeks of weakness. We were consulted for HF exacerbation.
GEORGINA
- Likely due to brisk diuresis (has lost 8lb in past 2 days if weights are accurate)
- Hold diuresis today
- Trend BMP
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
- Still appears extravascularly volume overloaded with significant LE edema but may be intravascularly dry with GEORGINA. We will need to go slower with diuresis to allow for his fluid to redistribute.
- Hold diuresis today for GEORGINA
- He has chronic low BP from 90-100 systolics
- GDMT limited by BP: cont metoprolol and Farxiga
- Standing daily weights
[place] loculated pleural effusion
- s/p thoracentesis with 800cc removed (06/13)
Hyperkalemiam resolved
- per primary
VT s/p ICD
- Jun 10 device interrogation showed May 26 NSVT lasting 2s
- cont amio and metop
CAD s.p CAGB
- stable cont aspirin
COPD
- chronic
PAD and Carotid artery disease
- cont aspirin
Subjective: Underwent thoracentesis this morning with 800 cc removed. No events on telemetry. Creatinine is up to 1.5 from 1.3. Weight is 67.7 kg from 69.4 kg yesterday. He received 40 mg IV Lasix twice daily yesterday.
Physical Exam
Vital Signs/Labs
Vital Signs
Temp Pulse Resp BP Pulse Ox
97.6 F 76 19 96/72 98
06/13/24 07:48 06/13/24 08:27 06/13/24 08:27 06/13/24 08:27 06/13/24 08:10
06/12/24 06/13/24 06/14/24
06:59 06:59 06:59
Actual Weight 69.4 kg 67.7 kg
06/13/24 04:41
06/13/24 04:41
Magnesium 1.8 mg/dl (1.6-2.3) 06/11/24 14:23
06/11/24
14:23
Nir-P-Vliboaqnrll Pept > 57125
LAB Results
06/11/24
14:23
Troponin I < 0.012
Physical Exam
Constitutional: No acute distress and Comfortable
Cardiovascular: Rhythm & rate is regular, Pedal edema present, JVD present, S1S2 is normal and Murmur/rub/gallop absent
Respiratory: Respiratory effort normal and Crackles Present
Data Reviewed
-
Date of Service: June 13, 2024
Medical Decision Making: Reviewed Test Results, Independent Historian Assessment, Test Interpretation and Review of Case with other Provider
EKG: Tracing Personally Visualized and interpreted
Echo: Report Reviewed by me
X-Ray/CT/US/MRI/NUC/PET: Image Personally Visualized and interpreted
Labs: Labs Reviewed by me
[2024-06-13 09:02] LABS: Body Fluid Glucose 132 mg/dl; Body Fluid LDH < 90 U/L; Body Fluid Protein < 2.0 g/dl; Body Fluid Triglycerides < 30 mg/dl
[2024-06-13 09:15] LABS: Body Fluid Mononuclear 92.9 %; Body Fluid Polymorphonuclear 7.1 %; Body Fluid WBC 325 /CUMM
[2024-06-13 09:19] LABS: Glucose - Point of Care 154 mg/dl (70-99)
[2024-06-13 09:20] LABS: Body Fluid Second Tech SS
[2024-06-13 09:30] LABS: Body Fluid Amylase < 30 U/L
[2024-06-13] MEDS: NOVOLOG FLEXPEN-LOW RESISTANCE 1 UNITS SC ×3 (09:36→17:24)
[2024-06-13] MEDS: FARXIGA 10 MG PO (09:38)
[2024-06-13] MEDS: ZETIA 10 MG PO (09:38)
[2024-06-13] MEDS: PACERONE 200 MG PO (09:38)
[2024-06-13] MEDS: DITROPAN PO ×2 (09:38→20:16)
[2024-06-13] MEDS: ASPIR LOW (ENTERIC COATED) 81 MG PO (09:38)
[2024-06-13] MEDS: LASIX IV (09:39)
--- NOTE | 2024-06-13 11:26 | PTCARENOTE ---
Assumed care of patient this morning. He is aaox3, forgetful to situation when first woken up. Pt's at bedside this morning and updated. Pt still having urinary retention this morning. Pt voiding small amounts. made aware and
ordered a Mcmanus catheter. Pt agreeable this morning, will place. Assessment, care and VS as charted.
[2024-06-13 12:33] LABS: Glucose - Point of Care 169 mg/dl (70-99)
[2024-06-13 14:53] LABS: Body Fluid pH 7.4
--- NOTE | 2024-06-13 15:30 | WOUNDNOTE ---
[facility] RN note: Patient admitted with hypoxia, pleural effusion. Patient lives with his and follows Dr. Hall in [facility].
See H&P for complete history.
PMH: HOTN, CAD, CABG, AICD, DM, neuropathy, COPD, L femoral peroneal bypass, L SFA stent, melanoma excision, former smoker.
Wound Location and type/assessment: Patient admitted with: Arterial full thickness ulcers to subcutaneous layer or deeper L lateral foot, R medial 1st MTH, R medial 2nd toe with mostly yellow slough. L great toe tip dry brown scab r/t PAD. Coccyx
deep dermal stage 2 pressure injury, pink with yellow fibrin. R heel and R lateral foot skin fissure. Bilateral heels blanchable red/boggy. Trace LE edema. Pedal pulses heard via portable Doppler (L<R). 04/18/24 R TBI 0.00, R IRAIS .61; L IRAIS .79, L
toe .54, no stenosis LLE bypass. Patient had declined vascular intervention in past. Dr. Hall's note from 06/09/24 recommends he sees vascular surgeon.
Appetite: poor.
Pressure redistribution devices in place: Centrella Max air bed. Patient turned with 1 assist. Air chair cushion.
Plan: Dressings changed on L great toe, L foot, R foot. Dry gauze applied between R great and 2nd toe. Silicone border foam maintained on sacral/coccyx. Heels off bed with pillow with air chair cushion. t/c SPD and ordered Foot Waffle boots. Patient
stated he has soft heel relief boots at home. Current wound care for L lateral foot and R medial forefoot has been Santyl with foam dressing daily.
Updated and confirmed orders with Dr. Desai who approved local wound care, air mattress, soft heel relief boots. Hospitalist plans to consult vascular in the am.
Care plan to be updated and will follow as needed.
Recommend follow up at wound care center upon discharge.
--- NOTE | 2024-06-13 15:36 | W.PN.HOSP.TC ---
Today's Communication/Plan
-
Hold Lasix and monitor creatinine
Noted with retention on multiple bladder scans. Mcmanus catheter.
Physical therapy assessment
Wean off oxygen as tolerates
Assessment / Plan
Assessment / Plan
HPI: 83-year-old male past medical history of CAD status post CABG, VT status post ICD, chronic HFrEF, moderate to severe mitral regurgitation, PAD status post lower extremity stents, syncopal episodes, hypertension, CVA/TIA, diabetes, diabetic
neuropathy, COPD, hyperlipidemia, presented with fatigue, weakness, shortness of breath, orthopnea and cough. Possible 8 to 10 pound weight gain recently.
He was hospitalized 5 to 6 weeks ago for syncopal episode and found to have slow VT and ICD. He had cardiac catheterization which was stable.
Chest x-ray showed slight prominence of interstitial markings concerning for mild CHF. Moderate loculated pleural effusion. Cardiac BNP greater than 27,000. Labs show potassium of 6 on admission. EKG shows paced rhythm, peaked T waves.
A/P:
# Acute on chronic HFrEF
# Moderate-severe MR
# Acute hypoxic respiratory insufficiency
Pt placed on 4L NC, wean as tolerated, he is NOT on home O2
Echo 04/25/2024: EF 20-25%, MODERATE-SEVERE MR
Initiated on IV diuresis Lasix 20 mg IV twice daily with bump in creatinine up to 1.5. Hold Lasix monitoring creatinine.
daily weight, I/O
Card on board
Continue ROUTE DELIVERY CLERK Farxiga 10 mg daily
# Moderate loculated left pleural effusion
Progressed since 04/24/2024
Status post left thoracentesis 06/13 and 800 cc transudate.
Acute kidney injury likely secondary to base diuresis as well as possibly retention
Hold further Lasix per
Mcmanus catheter to be inserted on 06/13 f
Follow creatinine
# Hypotension persistent
Toprol with holding parameter
# hyperkalemia on admission, resolved after treatment
# Stage I/II sacral ulcer present on admission
# Wound left lateral foot present on admission
# PAD s/p LE stents
Consult wound care
# DM type 2 with neuropathy
HgbA1c 7.0% on 04/24/2024
ISS low, DM diet, AccuCheck
Hold metformin, glimepiride
# h/o VT with slow response s/p ICD
# CAD s/p CABG
s/p cath on 04/25/24 by cardiology. No stent placed as patient w/o chest pain
Cont Amiodarone.
Toprol was decreased
# Syncopal episodes with staring spell March 2024 thought to be possible seizures by neurology
EEG without signs of seizures March 2024
Was on Depakote 250 mg daily that was stopped on 06/03/2024 by patient's PCP
Monitor for any possible seizure activity since PCP took patient off Depakote
# HLD
Continue Zetia 10 mg daily
# GERD
Continue omeprazole
# Constipation hx
Continue MiraLAX 17 g twice daily as needed, Senokot 1 tab twice daily as needed
# COPD, stable
Continue albuterol, Incruse Ellipta
# History of alcohol abuse,
has been in recovery for 35 years per
# BPH
Continue oxybutynin 5 mg daily
Other PMH:
# Liver hemangioma
# R renal cyst- no f/u advised
DVT prophylaxis: Subcu Lovenox
Code status DNR , confirmed with pt 06/12/24
d/w on the phone
total time spent 51 min
Anticipated Discharge: > 48 hours
Subjective/Interval History
-
Date of Service: June 13, 2024
Objective Data
-
Labs:
Laboratory Results
06/13/24
04:41
WBC 6.6
Hgb 11.5 L
Hct 35.8 L
Plt Count 282
Sodium 139
Potassium 4.9
Chloride 101
Carbon Dioxide 23
BUN 50 H
Creatinine 1.5 H
Glucose 150 H
Calcium 8.2 L
Total Bilirubin 0.5
AST 17
ALT 12
Alkaline Phosphatase 83
Vital Signs:
Vital Signs
Temp Pulse Resp BP Pulse Ox
97.8 F 74 17 100/45 98
06/13/24 11:20 06/13/24 14:24 06/13/24 14:24 06/13/24 14:24 06/13/24 14:24
I&O
06/12/24 06/13/24 06/14/24
06:59 06:59 06:59
Intake Total 240 / 240 510 / 510
Output Total 200 / 200 1275 / 1275
Balance 40 / 40 -765 / -765
Physical Exam
-
General: Well Developed, Well Nourished, Comfortable, Respiratory Distress, Conversant and Appears Chronically Ill
HEENT: Normocephalic and Oxygen (4L NC)
Respiratory: Non Labored Respirations and Decreased Breath Sounds; Negative Accessory Resp Muscle Use
Cardiac: Regular Rhythm and S1/S2
GI: Soft, Nontender and Nondistended
Musculoskeletal: No Clubbing, No Cyanosis, Edema, Right Lower Extrem and Edema, Left Lower Extrem
Neuro: Awake and Alert
Psych: Calm and Intact Judgement/Insight
--- NOTE | 2024-06-13 15:52 | WOUNDNOTE ---
L GREAT TOE TIP
--- NOTE | 2024-06-13 15:54 | WOUNDNOTE ---
R 1ST MTH (MEDIAL)
--- NOTE | 2024-06-13 15:54 | WOUNDNOTE ---
R 2ND TOE (SIDE OF)
[2024-06-13] MEDS: TOPROL XL PO (17:25)
[2024-06-13] MEDS: LOVENOX 40 MG SC (17:25)
[2024-06-13 17:34] LABS: Glucose - Point of Care 178 mg/dl (70-99)
[2024-06-13 21:20] LABS: Glucose - Point of Care 177 mg/dl (70-99)
[2024-06-13] MEDS: REFRESH EYE DROPS (PF) 1 DROPS RIGHT EYE (22:43)
[2024-06-13] MEDS: PROTONIX 40 MG PO (22:43)
[2024-06-14] VITALS (19 sets, daily range): BP systolic 94–115; BP diastolic 41–60; PULSE 77–80; O2SAT 95–96; BMI 19.8
--- NOTE | 2024-06-14 00:32 | PTCARENOTE ---
Assumed care of Pt this evening. Pt AAOx3. Pt weaned down to 1L NC if tolerating over night possible to wean off oxygen in AM. Pt SPO2 96% on 1L. Pt remains on strict I&O. Mcmanus in place, Pt tolerating well. Pt has no complaints at this time.
Assessment care and vitals as charted.
[2024-06-14 05:08] LABS: % Basophils 0.3 % (0-2); % Eosinophils 1.3 % (0-6); % Immature Granulocytes 0.3 % (0-0.5); % Lymphocytes 22.2 % (20.5-51.1); % Monocytes 8.4 % (1.7-9.3); % Neutrophils 67.5 % (42.2-75.2); Absolute Eosinophils 0.1 10^3/uL (0-0.7); Absolute Lymphocytes 1.6 10^3/uL (1.2-3.4); Absolute Monocytes 0.6 10^3/uL (0.1-0.6); Absolute Neutrophils 4.9 10^3/uL (1.4-6.5); Hematocrit 35.9 % (39.0-52.0); Hemoglobin 11.3 g/dL (13.0-18.0); Mean Corp Hgb Conc. 31.5 g/dL (33.0-37.0); Mean Corpuscular Volume 98.6 fL (80.0-94.0); Mean Platelet Volume 10.4 fL (7.4-10.4); Nucleated Red Blood Cells % 0 % (-); Platelet Count 268 10^3/uL (130-400); Red Blood Cell Count 3.64 10^6/uL (4.70-6.10); Red Cell Dist. Width 17.2 % (11.5-14.5); White Blood Cell Count 7.2 10^3/uL (4.8-10.8)
[2024-06-14 05:30] LABS: ALT (SGPT) 11 U/L (0-50); AST (SGOT) 13 U/L (17-59); Albumin 2.6 g/dl (3.5-5.0); Alkaline Phosphatase 84 U/L (38-126); Blood Urea Nitrogen 41 mg/dl (9-20); Carbon Dioxide 24 mmol/L (22-30); Chloride 102 mmol/L (98-107); Estimated Creatinine Clearance 40 ml/min; Glucose 153 mg/dl (70-99); Potassium 4.4 mmol/L (3.5-5.1); Sodium 139 mmol/L (135-145); Total Bilirubin 0.3 mg/dl (0.2-1.3); Total Protein 4.9 g/dl (6.3-8.2); eGFR 54.51
[2024-06-14] MEDS: SPIRIVA RESPIMAT 2.5 MCG 2 PUFF INH (07:49)
[2024-06-14 08:11] LABS: Glucose - Point of Care 155 mg/dl (70-99)
[2024-06-14] MEDS: NOVOLOG FLEXPEN-LOW RESISTANCE 1 UNITS SC ×2 (08:56→18:18)
[2024-06-14] MEDS: ASPIR LOW (ENTERIC COATED) 81 MG PO (08:57)
[2024-06-14] MEDS: SANTYL OINTMENT 1 APPLIC TOPICAL (08:57)
[2024-06-14] MEDS: ZETIA 10 MG PO (08:57)
[2024-06-14] MEDS: FARXIGA 10 MG PO (08:57)
[2024-06-14] MEDS: PACERONE 200 MG PO (08:57)
[2024-06-14] MEDS: DITROPAN PO ×2 (08:58→19:51)
--- NOTE | 2024-06-14 09:19 | W.PN.CD ---
Today's Communication / Plan
-
Resume diuresis with IV Lasix 20 mg twice daily
Impression / Plan
-
83-year-old male with past medical history of VT status post ICD, acute on chronic heart failure reduced ejection fraction (20-25%), CAD status post CABG in May 2018, severe carotid stenoses status post CEA and stenting, PAD, diabetes, COPD who
is here for approximately 2 weeks of weakness. We were consulted for HF exacerbation.
GEORGINA, improving
- Likely due to brisk diuresis (lost 8lb in past 2 days if weights are accurate)
- Resume diuresis today with 20mg IV Lasix BID (reduced dose)
- Trend BMP
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
- Still appears extravascularly volume overloaded with significant LE edema
- Resume diuresis today as above
- He has chronic low BP from 90-100 systolics
- GDMT limited by BP: cont metoprolol and Farxiga
- Standing daily weights
Moderate loculated pleural effusion
- s/p thoracentesis with 800cc removed (06/13)
VT s/p ICD
- Jun 10 device interrogation showed NSVT on 05/26 lasting 2s
- cont amio and metop
CAD s.p CAGB
- stable cont aspirin
COPD
- chronic
PAD and Carotid artery disease
- cont aspirin
Subjective: Lasix held yesterday for GEORGINA. Creatinine is 1.3 today from 1.5 yesterday. Weight is 66.1 kg today from 67.7 kg yesterday. No events on telemetry.
Physical Exam
Vital Signs/Labs
Vital Signs
Temp Pulse Resp BP Pulse Ox
97.5 F 66 18 106/52 92
06/14/24 07:40 06/14/24 07:54 06/14/24 07:54 06/14/24 06:00 06/14/24 08:32
06/13/24 06/14/24 06/15/24
06:59 06:59 06:59
Actual Weight 67.7 kg 66.1 kg
06/14/24 04:33
06/14/24 04:33
Magnesium 1.8 mg/dl (1.6-2.3) 06/11/24 14:23
06/11/24
14:23
Cvk-T-Nipzsjdgykm Pept > [id number]
LAB Results
06/11/24
14:23
Troponin I < 0.012
Physical Exam
Constitutional: No acute distress and Comfortable
Cardiovascular: Rhythm & rate is regular and Pedal edema present (2-3+ pitting edema to mid shins bilaterally)
Respiratory: Respiratory effort normal, Crackles Present and Rhonchi Present
Data Reviewed
-
Date of Service: June 14, 2024
Medical Decision Making: Reviewed Test Results, Independent Historian Assessment, Test Interpretation and Review of Case with other Provider
EKG: Tracing Personally Visualized and interpreted
Echo: Report Reviewed by me
Labs: Labs Reviewed by me
[2024-06-14] MEDS: LASIX 20 MG IV ×2 (09:55→16:28)
[2024-06-14 12:42] LABS: Glucose - Point of Care 209 mg/dl (70-99)
[2024-06-14] MEDS: NOVOLOG FLEXPEN-LOW RESISTANCE 2 UNITS SC (13:07)
--- NOTE | 2024-06-14 14:45 | W.PN.HOSP.TC ---
Today's Communication/Plan
-
Resume Lasix to 20 mg IV twice daily.
Maintain Mcmanus.
Will consider Flomax, although with marginal BP.
Physical therapy assessment.
Consider trial of voiding prior to discharge
Home O2 assessment about 24 hours prior to discharge.
Assessment / Plan
Assessment / Plan
HPI: 83-year-old male past medical history of CAD status post CABG, VT status post ICD, chronic HFrEF, moderate to severe mitral regurgitation, PAD status post lower extremity stents, syncopal episodes, hypertension, CVA/TIA, diabetes, diabetic
neuropathy, COPD, hyperlipidemia, presented with fatigue, weakness, shortness of breath, orthopnea and cough. Possible 8 to 10 pound weight gain recently.
He was hospitalized 5 to 6 weeks ago for syncopal episode and found to have slow VT and ICD. He had cardiac catheterization which was stable.
Chest x-ray showed slight prominence of interstitial markings concerning for mild CHF. Moderate loculated pleural effusion. Cardiac BNP greater than 27,000. Labs show potassium of 6 on admission. EKG shows paced rhythm, peaked T waves.
A/P:
# Acute on chronic HFrEF
# Moderate-severe MR
# Acute hypoxic respiratory insufficiency improved oxygenation, weaned off oxygen completely at rest.
Echo 04/25/2024: EF 20-25%, MODERATE-SEVERE MR
Creatinine improved. Resume Lasix at 20 mg IV twice daily
daily weight, I/O
Card on board
Continue FIRE PRE[employer]ION SPECIALIST Farxiga 10 mg daily
# Moderate loculated left pleural effusion
Progressed since 04/24/2024
Status post left thoracentesis 06/13 and 800 cc transudate.
Acute kidney injury likely secondary to base diuresis as well as possibly retention
Mcmanus catheter to be inserted on 06/13
Creatinine improved
# Hypotension persistent
Toprol with holding parameter
# hyperkalemia on admission, resolved after treatment
# Stage I/II sacral ulcer present on admission
# Wound left lateral foot present on admission
# PAD s/p LE stents
Consult wound care
# DM type 2 with neuropathy
HgbA1c 7.0% on 04/24/2024
ISS low, DM diet, AccuCheck
Hold metformin, glimepiride
# h/o VT with slow response s/p ICD
# CAD s/p CABG
s/p cath on 04/25/24 by cardiology. No stent placed as patient w/o chest pain
Cont Amiodarone.
Toprol was decreased
# Syncopal episodes with staring spell March 2024 thought to be possible seizures by neurology
EEG without signs of seizures March 2024
Was on Depakote 250 mg daily that was stopped on 06/03/2024 by patient's PCP
Monitor for any possible seizure activity since PCP took patient off Depakote
# HLD
Continue Zetia 10 mg daily
# GERD
Continue omeprazole
# Constipation hx
Continue MiraLAX 17 g twice daily as needed, Senokot 1 tab twice daily as needed
# COPD, stable
Continue albuterol, Incruse Ellipta
# History of alcohol abuse,
has been in recovery for 35 years per
# BPH
Continue oxybutynin 5 mg daily
Other PMH:
# Liver hemangioma
# R renal cyst- no f/u advised
DVT prophylaxis: Subcu Lovenox
Code status DNR , confirmed with pt 06/12/24
d/w on the phone
total time spent 51 min
Anticipated Discharge: 24 - 48 hours
Subjective/Interval History
-
Date of Service: June 14, 2024
Objective Data
-
Labs:
Laboratory Results
06/14/24
04:33
WBC 7.2
Hgb 11.3 L
Hct 35.9 L
Plt Count 268
Sodium 139
Potassium 4.4
Chloride 102
Carbon Dioxide 24
BUN 41 H
Creatinine 1.3
Glucose 153 H
Calcium 8.0 L
Total Bilirubin 0.3
AST 13 L
ALT 11
Alkaline Phosphatase 84
Vital Signs:
Vital Signs
Temp Pulse Resp BP Pulse Ox
97.5 F 77 14 103/47 91
06/14/24 07:40 06/14/24 12:00 06/14/24 12:00 06/14/24 12:00 06/14/24 12:00
I&O
06/13/24 06/14/24 06/15/24
06:59 06:59 06:59
Intake Total 510 / 510 840 / 840
Output Total 1275 / 1275 1275 / 1275 1000 / 1000
Balance -765 / -765 -435 / -435 -1000 / -1000
Physical Exam
-
General: Well Developed, Well Nourished, Comfortable, Respiratory Distress, Conversant and Appears Chronically Ill
HEENT: Normocephalic and Oxygen (4L NC)
Respiratory: Non Labored Respirations and Decreased Breath Sounds; Negative Accessory Resp Muscle Use
Cardiac: Regular Rhythm and S1/S2
GI: Soft, Nontender and Nondistended
Musculoskeletal: No Clubbing, No Cyanosis, Edema, Right Lower Extrem and Edema, Left Lower Extrem
Neuro: Awake and Alert
Psych: Calm and Intact Judgement/Insight
--- NOTE | 2024-06-14 15:33 | CM ---
CM reviewed chart- ADC 1-2 days
call with - reviewed therapy recs
She is requesting SNF referrals, [facility] is 1st choice
PASRR completed and referrals sent via [facility]
Discharge Disposition- SNF
[2024-06-14] MEDS: ZOFRAN 4 MG IV (16:38)
--- NOTE | 2024-06-14 17:09 | PTCARENOTE ---
Pt present as assessed. Aox3. AV paced with PVC's on tele monitor. Sating low to mid 90's on RA. OOB to chair. Mcmanus care completed. at bedside, updated on plan of care. Ringing appropriately, call mtz within reach.
[2024-06-14 18:28] LABS: Glucose - Point of Care 190 mg/dl (70-99)
[2024-06-14] MEDS: TOPROL XL PO (19:32)
[2024-06-14] MEDS: LOVENOX 40 MG SC (19:50)
--- NOTE | 2024-06-14 20:00 | PTCARENOTE ---
Pt received from previous RN. Pt AAox3. AV paced on the monitor. Pt on RA, satting 92%. Pt with Mcmanus catheter, HS care preformed. Pt denies need to have BM at this time. Assessment as documented. Call light in reach. safe environment maintained.
[2024-06-14 21:39] LABS: Glucose - Point of Care 213 mg/dl (70-99)
[2024-06-14] MEDS: REFRESH EYE DROPS (PF) 1 DROPS RIGHT EYE (22:08)
[2024-06-15] VITALS (14 sets, daily range): BP systolic 75–110; BP diastolic 44–65; BMI 19.5
[2024-06-15 05:46] LABS: % Basophils 0.3 % (0-2); % Eosinophils 1.9 % (0-6); % Immature Granulocytes 0.3 % (0-0.5); % Lymphocytes 27.6 % (20.5-51.1); % Neutrophils 61.9 % (42.2-75.2); Absolute Eosinophils 0.1 10^3/uL (0-0.7); Absolute Lymphocytes 1.7 10^3/uL (1.2-3.4); Absolute Monocytes 0.5 10^3/uL (0.1-0.6); Absolute Neutrophils 3.9 10^3/uL (1.4-6.5); Hemoglobin 11.9 g/dL (13.0-18.0); Mean Corp Hgb Conc. 32.2 g/dL (33.0-37.0); Mean Corpuscular Hgb 31.2 pg (27.0-31.0); Mean Corpuscular Volume 96.9 fL (80.0-94.0); Mean Platelet Volume 10.6 fL (7.4-10.4); Nucleated Red Blood Cells % 0 % (-); Platelet Count 271 10^3/uL (130-400); Red Blood Cell Count 3.82 10^6/uL (4.70-6.10); Red Cell Dist. Width 17.1 % (11.5-14.5); White Blood Cell Count 6.2 10^3/uL (4.8-10.8)
[2024-06-15 06:08] LABS: ALT (SGPT) 11 U/L (0-50); AST (SGOT) 14 U/L (17-59); Albumin 2.7 g/dl (3.5-5.0); Alkaline Phosphatase 88 U/L (38-126); Blood Urea Nitrogen 38 mg/dl (9-20); Calcium 8.3 mg/dl (8.4-10.2); Carbon Dioxide 27 mmol/L (22-30); Chloride 100 mmol/L (98-107); Estimated Creatinine Clearance 40 ml/min; Glucose 160 mg/dl (70-99); Potassium 4.5 mmol/L (3.5-5.1); Sodium 138 mmol/L (135-145); Total Bilirubin 0.4 mg/dl (0.2-1.3); Total Protein 5.1 g/dl (6.3-8.2); eGFR 54.51
[2024-06-15] MEDS: SPIRIVA RESPIMAT 2.5 MCG 2 PUFF INH (07:29)
--- NOTE | 2024-06-15 08:00 | PTCARENOTE ---
On walking rounds pt is sleeping no s/s of distress 2 l O2 pox at 94%
[2024-06-15 08:05] LABS: Glucose - Point of Care 162 mg/dl (70-99)
[2024-06-15] MEDS: NOVOLOG FLEXPEN-LOW RESISTANCE 1 UNITS SC ×2 (08:52→13:29)
[2024-06-15] MEDS: PACERONE 200 MG PO (08:53)
[2024-06-15] MEDS: DITROPAN 2.5 MG PO (08:53)
[2024-06-15] MEDS: FARXIGA 10 MG PO (08:53)
[2024-06-15] MEDS: ASPIR LOW (ENTERIC COATED) 81 MG PO (08:53)
[2024-06-15] MEDS: ZETIA 10 MG PO (08:53)
[2024-06-15] MEDS: LASIX 20 MG IV ×2 (08:54→16:57)
[2024-06-15] MEDS: SANTYL OINTMENT 1 APPLIC TOPICAL (09:01)
--- NOTE | 2024-06-15 10:30 | W.PN.CD ---
Today's Communication / Plan
-
add midodrine
continue lasix 20mg IV bid, with monitoring of labs, tele, weight
PT eval
Impression / Plan
-
83-year-old male with past medical history of VT status post ICD, acute on chronic heart failure reduced ejection fraction (20-25%), CAD status post CABG in May 2018, severe carotid stenoses status post CEA and stenting, PAD, diabetes, COPD who
is here for approximately 2 weeks of weakness. We were consulted for HF exacerbation.
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
- He has chronic low BP from 90-100 systolics: add midodrine
- GDMT limited by BP: cont metoprolol XL 12.5mg qHS, and Farxiga
- continue lasix 20mg IV bid, with monitoring of labs, tele, weight
Moderate loculated pleural effusion
- s/p thoracentesis with 800cc removed (06/13)
VT s/p ICD
- Jun 10 device interrogation showed NSVT on 05/26 lasting 2s
- cont amio and metop
CAD s.p CAGB
- stable cont aspirin
COPD
- chronic
PAD and Carotid artery disease
- cont aspirin
Subjective:
Edema better. Still feels weak.
Physical Exam
Vital Signs/Labs
Vital Signs
Temp Pulse Resp BP Pulse Ox
97.1 F 79 15 98/54 90
06/15/24 07:00 06/15/24 10:00 06/15/24 10:00 06/15/24 10:00 06/15/24 10:00
06/14/24 06/15/24 06/16/24
06:59 06:59 06:59
Actual Weight 66.1 kg 65.3 kg
06/15/24 05:21
06/15/24 05:21
Magnesium 1.8 mg/dl (1.6-2.3) 06/11/24 14:23
06/11/24
14:23
Idf-T-Rygfbxzdcsn Pept > 19837
Physical Exam
Constitutional: No acute distress and Comfortable
EENT: Moist mucous membranes
Cardiovascular: Rhythm & rate is regular, Pedal edema present, JVD present and Systolic murmur present
Respiratory: Respiratory effort normal and Lungs clear to auscul.
Neuro/Psych: AO x 3
Data Reviewed
-
Date of Service: June 15, 2024
EKG: Other (Tele: A paced 80)
Labs: Labs Reviewed by me
--- NOTE | 2024-06-15 10:54 | W.HF.CON ---
Heart Failure
- LV Function
Left ventricular function study result: LV Ejection fraction </= 35% (ECHO 04/25/24)
Ejection Fraction Percentage: 20-25
- ARNI
Patient already on ARNI: No
Heart Failure ARNI Contraindication: Acute Renal Failure, Hypotension
- ACEI/ARB
Patient already on ACEI/ARB: No
Heart Failure ACEI/ARB Contraindication: Acute Renal Failure, Hypotension
- Beta Saji
Patient already on Evidence Based Beta Saji: Yes
- Mineralocorticord Receptor Antagonist
Patient already on MRA: No
Heart Failure MRA Contraindication: Acute Renal Insufficiency, Hypotension
- SGLT-2 Inhibitor
Patient already on SGLT-2 Inhibitor: Yes
- NYHA CHF Classification
NYHA CHF Classification Level: Class III - Symptoms w/ min exertion, interferes w/ nml daily activity
- ACC/AHA Stage
ACC/AHA Stage: Stage C: Symptomatic Heart Failure
--- NOTE | 2024-06-15 11:20 | W.PN.HOSP.TC ---
Today's Communication/Plan
-
Midodrine trial for BP support while on IV diuresis
Ongoing goals of care discussion with consideration of hospice. Appreciate cardiology input
Vascular surgery consultation to evaluate chronic lower extremity wounds
Physical therapy assessment hopefully with improved performance while on midodrine.
Maintain Mcmanus. Consider trial of voiding if improved PT elias.
Assessment / Plan
Assessment / Plan
HPI: 83-year-old male past medical history of CAD status post CABG, VT status post ICD, chronic HFrEF, moderate to severe mitral regurgitation, PAD status post lower extremity stents, syncopal episodes, hypertension, CVA/TIA, diabetes, diabetic
neuropathy, COPD, hyperlipidemia, presented with fatigue, weakness, shortness of breath, orthopnea and cough. Possible 8 to 10 pound weight gain recently.
He was hospitalized 5 to 6 weeks ago for syncopal episode and found to have slow VT and ICD. He had cardiac catheterization which was stable.
Chest x-ray showed slight prominence of interstitial markings concerning for mild CHF. Moderate loculated pleural effusion. Cardiac BNP greater than 27,000. Labs show potassium of 6 on admission. EKG shows paced rhythm, peaked T waves.
A/P:
# Acute on chronic HFrEF
# Moderate-severe MR
# Acute hypoxic respiratory insufficiency improved oxygenation, weaned off oxygen completely at rest.
Echo 04/25/2024: EF 20-25%, MODERATE-SEVERE MR
Creatinine improved. Resume Lasix at 20 mg IV twice daily
Initiated on midodrine for BP support
daily weight, I/O
Card on board
Continue [employer] Farxiga 10 mg daily
# Moderate loculated left pleural effusion
Progressed since 04/24/2024
Status post left thoracentesis 06/13 and 800 cc transudate.
Acute kidney injury likely secondary to base diuresis as well as possibly retention
Mcmanus catheter to be inserted on 06/13
Creatinine improved
# Hypotension persistent
Toprol with holding parameter
# hyperkalemia on admission, resolved after treatment
# Stage I/II sacral ulcer present on admission
# Wound left lateral foot present on admission
# PAD s/p LE stents
Consult wound care
# DM type 2 with neuropathy
HgbA1c 7.0% on 04/24/2024
ISS low, DM diet, AccuCheck
Hold metformin.
# h/o VT with slow response s/p ICD
# CAD s/p CABG
s/p cath on 04/25/24 by cardiology. No stent placed as patient w/o chest pain
Cont Amiodarone.
Toprol was decreased
# Syncopal episodes with staring spell March 2024 thought to be possible seizures by neurology
EEG without signs of seizures March 2024
Was on Depakote 250 mg daily that was stopped on 06/03/2024 by patient's PCP
Monitor for any possible seizure activity since PCP took patient off Depakote
# HLD
Continue Zetia 10 mg daily
# GERD
Continue omeprazole
# Constipation hx
Continue MiraLAX 17 g twice daily as needed, Senokot 1 tab twice daily as needed
# COPD, stable
Continue albuterol, Incruse Ellipta
# History of alcohol abuse,
has been in recovery for 35 years per
# BPH
Continue oxybutynin 5 mg daily
Other PMH:
# Liver hemangioma
# R renal cyst- no f/u advised
DVT prophylaxis: Subcu Lovenox
Code status DNR , confirmed with pt 06/12/24
d/w on the phone
total time spent 51 min
Anticipated Discharge: 24 - 48 hours
Subjective/Interval History
-
Date of Service: June 15, 2024
Objective Data
-
Labs:
Laboratory Results
06/15/24
05:21
WBC 6.2
Hgb 11.9 L
Hct 37.0 L
Plt Count 271
Sodium 138
Potassium 4.5
Chloride 100
Carbon Dioxide 27
BUN 38 H
Creatinine 1.3
Glucose 160 H
Calcium 8.3 L
Total Bilirubin 0.4
AST 14 L
ALT 11
Alkaline Phosphatase 88
Vital Signs:
Vital Signs
Temp Pulse Resp BP Pulse Ox
97.1 F 79 15 98/54 93
06/15/24 07:00 06/15/24 10:00 06/15/24 10:00 06/15/24 10:00 06/15/24 11:01
I&O
06/14/24 06/15/24 06/16/24
06:59 06:59 06:59
Intake Total 840 / 840 240 / 240
Output Total 1275 / 1275 1825 / 1825
Balance -435 / -435 -1585 / -1585
Physical Exam
-
General: Well Developed, Well Nourished, Comfortable, Respiratory Distress, Conversant and Appears Chronically Ill
HEENT: Normocephalic and Oxygen (4L NC)
Respiratory: Non Labored Respirations and Decreased Breath Sounds; Negative Accessory Resp Muscle Use
Cardiac: Regular Rhythm and S1/S2
GI: Soft, Nontender and Nondistended
Musculoskeletal: No Clubbing, No Cyanosis, Edema, Right Lower Extrem and Edema, Left Lower Extrem
Neuro: Awake and Alert
Psych: Calm and Intact Judgement/Insight
--- NOTE | 2024-06-15 11:39 | CM ---
Patient with Hx ICD, HF, Stage I/II sacral ulcer present on admission, Wound left lateral foot present on admission who is s/p left thoracentesis 06/13. Room air. Receiving IV Lasix, midodrine, PO Amiodarone. Seen by wound care nurse. PT/OT;
requires assisst of 2, recommend skilled rehab.
Spoke with Dr Desai; per MD working on stabilizing patient with EF approximately 20% who is hypotensive. Patient/ considering hospice.
CM Consult: Hospice
Met with patient and ; explained hospice philosophy and benefits.
They are considering hospice rather than rehab.
Discussed cost of private pay for SNF bed with hospice vs cost of having caregiver services at home.
Patient and agree to speak with Hospice Nurse.
Patient states he wants to go home to be with his until he passes.
receptive to hiring a caregiver clinical partner; discussed considerations of hiring a caregiver and provided Caregiver list.
Spoke with [facility]; she will meet with the patient & .
Plan follow up after seen by Hospice.
[2024-06-15 12:35] LABS: Glucose - Point of Care 168 mg/dl (70-99)
[2024-06-15] MEDS: ProAmatine 5 MG PO ×2 (13:31→17:53)
--- NOTE | 2024-06-15 13:36 | HOSPNOTE ---
Spoke with patient and spouse about hospice and the philosophy. They need some time to think about hospice and will make some decisions. Will continue to follow.
--- NOTE | 2024-06-15 16:10 | W.PN.UPDATE ---
Update Note
Progress Note Update
Frail 83-year-old male well-known to me from prior vascular interventions
Now admitted with heart failure
Frail and debilitated currently
Has developed heel ulcers and I was asked to evaluate
At this point patient is considering transition to hospice care which I feel is appropriate given his current clinical state and overall poor prognosis.
Spoke with patient and at bedside and provided support/reassurance regarding this decision
Call with questions or concerns
Francisco Mcmanus III, MD
[facility]
[phone] (dyts)
[2024-06-15] MEDS: XANAX 0.25 MG PO (17:19)
[2024-06-15 17:49] LABS: Glucose - Point of Care 212 mg/dl (70-99)
[2024-06-15] MEDS: NOVOLOG FLEXPEN-LOW RESISTANCE 2 UNITS SC (17:51)
[2024-06-15] MEDS: LOVENOX 40 MG SC (17:52)
[2024-06-15] MEDS: TOPROL XL PO (17:54)
--- NOTE | 2024-06-15 18:38 | PTCARENOTE ---
Pt and thinkig about hospice, pt feeling anxious, DR Desai TT Xanax orderd and given to pt.
[2024-06-15] MEDS: DITROPAN PO (20:03)
[2024-06-15 21:24] LABS: Glucose - Point of Care 196 mg/dl (70-99)
[2024-06-15] MEDS: PROTONIX 40 MG PO (22:10)
[2024-06-15] MEDS: REFRESH EYE DROPS (PF) 1 DROPS RIGHT EYE (22:10)
[2024-06-16] VITALS (14 sets, daily range): BP systolic 92–112; BP diastolic 44–66; BMI 18.8; BMI 19.2
--- NOTE | 2024-06-16 05:19 | PTCARENOTE ---
king not d/c'd this am as physician note from yesterday states to maintain king. Will ask dayshift to clarify with attending today.
[2024-06-16 06:54] LABS: Blood Urea Nitrogen 35 mg/dl (9-20); Estimated Creatinine Clearance 50 ml/min; Glucose 165 mg/dl (70-99); eGFR > 60.00
[2024-06-16 06:55] LABS: Calcium 8.1 mg/dl (8.4-10.2); Carbon Dioxide 27 mmol/L (22-30); Chloride 98 mmol/L (98-107); Potassium 4.5 mmol/L (3.5-5.1); Sodium 137 mmol/L (135-145)
[2024-06-16] MEDS: SPIRIVA RESPIMAT 2.5 MCG 2 PUFF INH (07:37)
[2024-06-16 07:58] LABS: Glucose - Point of Care 152 mg/dl (70-99)
[2024-06-16] MEDS: NOVOLOG FLEXPEN-LOW RESISTANCE 1 UNITS SC ×3 (08:05→17:15)
[2024-06-16] MEDS: ASPIR LOW (ENTERIC COATED) 81 MG PO (08:19)
[2024-06-16] MEDS: ProAmatine 5 MG PO ×3 (08:19→17:04)
[2024-06-16] MEDS: ZETIA 10 MG PO (08:20)
[2024-06-16] MEDS: DITROPAN 2.5 MG PO ×2 (08:20→19:52)
[2024-06-16] MEDS: FARXIGA 10 MG PO (08:20)
[2024-06-16] MEDS: PACERONE 200 MG PO (08:20)
--- NOTE | 2024-06-16 11:05 | W.PN.CD ---
Today's Communication / Plan
-
hospice evaluation
turn off ICD
Impression / Plan
-
83-year-old male with past medical history of VT status post ICD, acute on chronic heart failure reduced ejection fraction (20-25%), CAD status post CABG in May 2018, severe carotid stenoses status post CEA and stenting, PAD, diabetes, COPD who
is here for approximately 2 weeks of weakness. We were consulted for HF exacerbation.
Goal of care
-patient is preparing to transfer to hospice
-we will turn off ICD therapy of his device
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
- He has chronic low BP from 90-100 systolics: add midodrine
- GDMT limited by BP: cont metoprolol XL 12.5mg qHS, and Farxiga
- continue lasix 20mg IV bid, with monitoring of labs, tele, weight while undergoing hospice evaluation
Moderate loculated pleural effusion
- s/p thoracentesis with 800cc removed (06/13)
VT s/p ICD
- Jun 10 device interrogation showed NSVT on 05/26 lasting 2s
- cont amio and metop
CAD s.p CAGB
- stable cont aspirin
COPD
- chronic
PAD and Carotid artery disease
- cont aspirin
Subjective:
Edema is better. Still feels weak.
Physical Exam
Vital Signs/Labs
Vital Signs
Temp Pulse Resp BP Pulse Ox
97.1 F 83 17 105/52 94
06/16/24 07:53 06/16/24 07:41 06/16/24 07:41 06/16/24 08:19 06/16/24 07:41
06/15/24 06/16/24 06/17/24
06:59 06:59 06:59
Actual Weight 65.3 kg 62.737 kg
06/15/24 05:21
06/16/24 04:49
Magnesium 1.8 mg/dl (1.6-2.3) 06/11/24 14:23
06/11/24
14:23
Ktc-[id number] Pept > 87080
Physical Exam
Constitutional: No acute distress and Comfortable
EENT: Moist mucous membranes
Cardiovascular: Rhythm & rate is regular, Pedal edema is absent, JVD present and Systolic murmur present
Respiratory: Respiratory effort normal and Lungs clear to auscul.
Neuro/Psych: AO x 3
Data Reviewed
-
Date of Service: June 16, 2024
EKG: Other (Tele: A paced)
Labs: Labs Reviewed by me
[2024-06-16] MEDS: XANAX 0.25 MG PO ×2 (11:08→19:53)
[2024-06-16] MEDS: LASIX 20 MG IV ×2 (11:08→16:24)
--- NOTE | 2024-06-16 11:42 | W.PN.HOSP.TC ---
Today's Communication/Plan
-
Transition from home hospice
Maintain Mcmanus catheter for comfort.
Continue IV diuresis for comfort
Maintain current cardiovascular regimen
AICD has been deactivated.
Discussed with cardiology and nursing.
Assessment / Plan
Assessment / Plan
HPI: 83-year-old male past medical history of CAD status post CABG, VT status post ICD, chronic HFrEF, moderate to severe mitral regurgitation, PAD status post lower extremity stents, syncopal episodes, hypertension, CVA/TIA, diabetes, diabetic
neuropathy, COPD, hyperlipidemia, presented with fatigue, weakness, shortness of breath, orthopnea and cough. Possible 8 to 10 pound weight gain recently.
He was hospitalized 5 to 6 weeks ago for syncopal episode and found to have slow VT and ICD. He had cardiac catheterization which was stable.
Chest x-ray showed slight prominence of interstitial markings concerning for mild CHF. Moderate loculated pleural effusion. Cardiac BNP greater than 27,000. Labs show potassium of 6 on admission. EKG shows paced rhythm, peaked T waves.
A/P:
# Acute on chronic HFrEF/end-stage CHF
# Moderate-severe MR
# Acute hypoxic respiratory insufficiency improved oxygenation, weaned off oxygen completely at rest.
Echo 04/25/2024: EF 20-25%, MODERATE-SEVERE MR
Creatinine improved. Resume Lasix at 20 mg IV twice daily
Initiated on midodrine for BP support
daily weight, I/O
Card on board
Continue [employer] Farxiga 10 mg daily
# Moderate loculated left pleural effusion
Progressed since 04/24/2024
Status post left thoracentesis 06/13 and 800 cc transudate.
Acute kidney injury likely secondary to base diuresis as well as possibly retention
Mcmanus catheter to be inserted on 06/13
Creatinine improved
# Hypotension persistent
Toprol with holding parameter
# hyperkalemia on admission, resolved after treatment
# Stage I/II sacral ulcer present on admission
# Wound left lateral foot present on admission
# PAD s/p LE stents
Consult wound care
Vascular surgery input appreciated
# DM type 2 with neuropathy
HgbA1c 7.0% on 04/24/2024
ISS low, DM diet, AccuCheck
Hold metformin.
# h/o VT with slow response s/p ICD
# CAD s/p CABG
s/p cath on 04/25/24 by cardiology. No stent placed as patient w/o chest pain
Cont Amiodarone.
Toprol was decreased
# Syncopal episodes with staring spell March 2024 thought to be possible seizures by neurology
EEG without signs of seizures March 2024
Was on Depakote 250 mg daily that was stopped on 06/03/2024 by patient's PCP
Monitor for any possible seizure activity since PCP took patient off Depakote
# HLD
Continue Zetia 10 mg daily
# GERD
Continue omeprazole
# Constipation hx
Continue MiraLAX 17 g twice daily as needed, Senokot 1 tab twice daily as needed
# COPD, stable
Continue albuterol, Incruse Ellipta
# History of alcohol abuse,
has been in recovery for 35 years per
# BPH
Continue oxybutynin 5 mg daily
Other PMH:
# Liver hemangioma
# R renal cyst- no f/u advised
DVT prophylaxis: Subcu Lovenox
Code status DNR , confirmed with pt 06/12/24
Disposition: With progressive end-stage heart failure, extreme deconditioning patient and spouse made decision to be transition to home hospice.
Anticipated Discharge: 24 - 48 hours
Subjective/Interval History
-
Date of Service: June 16, 2024
Objective Data
-
Labs:
Laboratory Results
06/16/24
04:49
Sodium 137
Potassium 4.5
Chloride 98
Carbon Dioxide 27
BUN 35 H
Creatinine 1.0
Glucose 165 H
Calcium 8.1 L
Vital Signs:
Vital Signs
Temp Pulse Resp BP Pulse Ox
97.1 F 83 17 103/64 94
06/16/24 07:53 06/16/24 07:41 06/16/24 07:41 06/16/24 11:08 06/16/24 07:41
I&O
06/15/24 06/16/24 06/17/24
06:59 06:59 06:59
Intake Total 240 / 240 480 / 480
Output Total 1825 / 1825 2225 / 2225
Balance -1585 / -1585 -1745 / -1745
Physical Exam
-
General: Well Developed, Well Nourished, Comfortable, Respiratory Distress, Conversant and Appears Chronically Ill
HEENT: Normocephalic and Oxygen (4L NC)
Respiratory: Non Labored Respirations and Decreased Breath Sounds; Negative Accessory Resp Muscle Use
Cardiac: Regular Rhythm and S1/S2
GI: Soft, Nontender and Nondistended
Musculoskeletal: No Clubbing, No Cyanosis, Edema, Right Lower Extrem and Edema, Left Lower Extrem
Neuro: Awake and Alert
Psych: Calm and Intact Judgement/Insight
[2024-06-16 12:16] LABS: Glucose - Point of Care 165 mg/dl (70-99)
[2024-06-16] MEDS: SANTYL OINTMENT 1 APPLIC TOPICAL (16:24)
[2024-06-16] MEDS: LOVENOX 40 MG SC (17:04)
[2024-06-16] MEDS: TOPROL XL PO (17:05)
[2024-06-16] MEDS: SENOKOT-S 1 TABLET PO (17:14)
[2024-06-16 17:23] LABS: Glucose - Point of Care 190 mg/dl (70-99)
--- NOTE | 2024-06-16 19:55 | PTCARENOTE ---
Pt rreceived from previous RN. Pt AAOx3. Pleasent and agreeable to care. Pt expressing slight anxiety this evening. Pt given ordered xanax per order. Pt with pacemaker. A paced. HR 79. FR 1200 maintained. Mcmanus emptied for 550 light yellow urine.
Call light in reach. Safe environment maintained.
--- NOTE | 2024-06-16 20:13 | PTCARENOTE ---
Report called to receiving RN on .
--- NOTE | 2024-06-16 21:07 | PTCARENOTE ---
Pt transferred to [id number].
[2024-06-16 21:26] LABS: Glucose - Point of Care 201 mg/dl (70-99)
[2024-06-16] MEDS: REFRESH EYE DROPS (PF) 1 DROPS RIGHT EYE (21:38)
[2024-06-17 03:14] VITALS: BP 106/52
[2024-06-17 06:00] VITALS: BMI 18.7
[2024-06-17 07:40] VITALS: BP 104/51
[2024-06-17] MEDS: SPIRIVA RESPIMAT 2.5 MCG 2 PUFF INH (07:46)
[2024-06-17 08:24] LABS: Glucose - Point of Care 172 mg/dl (70-99)
[2024-06-17] MEDS: DITROPAN 2.5 MG PO (09:09)
[2024-06-17] MEDS: PACERONE 200 MG PO (09:09)
[2024-06-17] MEDS: LASIX IV (09:10)
[2024-06-17] MEDS: ASPIR LOW (ENTERIC COATED) 81 MG PO (09:10)
[2024-06-17] MEDS: ProAmatine 5 MG PO (09:10)
[2024-06-17] MEDS: FARXIGA 10 MG PO (09:10)
[2024-06-17] MEDS: ZETIA 10 MG PO (09:10)
[2024-06-17] MEDS: SANTYL OINTMENT 1 APPLIC TOPICAL (09:10)
[2024-06-17] MEDS: NOVOLOG FLEXPEN-LOW RESISTANCE 1 UNITS SC (10:01)
--- NOTE | 2024-06-17 10:09 | CM ---
Addendum entered by Alis Lanier RN 06/17/24 16:03:
IMM signed and placed on chart. Patient to be transported on Thursday @ 1030.
Original Note:
Reviewed the chart notes and spoke with the patient at the bedside. Plan is home on Thursday with Hospice. Per notes, equipment will be delivered to the home Thursday. CM continues to be available to patient/family and is monitoring medical plan
for needs at discharge.
Plan: Discharge to home Thursday on Hospice service.
--- NOTE | 2024-06-17 10:16 | HOSPNOTE ---
Patient will be discharged home on Thursday with hospice. Patient will need transport and OOH DNR placed on chart. Once patient is home we will sign onto hospice services. Equipment will be delivered on Thursday. Attending and CM aware of plan.
--- NOTE | 2024-06-17 10:24 | W.PN.CD ---
Today's Communication / Plan
-
transfer to hospice
ICD is off
Impression / Plan
-
83-year-old male with past medical history of VT status post ICD, acute on chronic heart failure reduced ejection fraction (20-25%), CAD status post CABG in May 2018, severe carotid stenoses status post CEA and stenting, PAD, diabetes, COPD who
is here for approximately 2 weeks of weakness. We were intially consulted for HF exacerbation.
Goal of care
-transfer to hospice
-ICD is off
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
Moderate loculated pleural effusion
VT s/p ICD
CAD s.p CAGB
COPD
PAD and Carotid artery disease
Physical Exam
Vital Signs/Labs
Vital Signs
Temp Pulse Resp BP Pulse Ox
97.1 F 85 16 106/52 95
06/17/24 07:40 06/17/24 07:47 06/17/24 07:47 06/17/24 09:10 06/17/24 07:47
06/16/24 06/17/24 06/18/24
06:59 06:59 06:59
Actual Weight 62.737 kg 62.369 kg
06/15/24 05:21
06/16/24 04:49
Magnesium 1.8 mg/dl (1.6-2.3) 06/11/24 14:23
06/11/24
14:23
Qlp-N-Jnctqfwbdvd Pept > 10722
Physical Exam
Constitutional: No acute distress
EENT: Moist mucous membranes
Cardiovascular: Rhythm & rate is regular
Respiratory: Respiratory effort normal
Neuro/Psych: Alert
Data Reviewed
-
Date of Service: June 17, 2024
[2024-06-17 12:36] LABS: Glucose - Point of Care 167 mg/dl (70-99)
[2024-06-17] MEDS: NOVOLOG FLEXPEN-LOW RESISTANCE SC ×2 (13:10→17:08)
--- NOTE | 2024-06-17 16:56 | W.PN.HOSP.TC ---
Today's Communication/Plan
-
Hospice/comfort care.
Assessment / Plan
Assessment / Plan
Impression:
Ischemic cardiomyopathy with end-stage CHF.
Recurrent pleural effusion.
History of VT status post AICD.
CAD with history of CABG.
COPD.
Diabetes.
PAD.
Overall deconditioning, bedbound status with pressure wounds.
Plan:
Transition to hospice care.
Arrangements being made to discharge with home hospice on 06/19.
Medication list had been simplified
Continuing Xanax as needed for agitation and anxiety.
Continue Lasix for comfort care.
Mcmanus catheter placed for initially retention currently for end-of-life care
Anticipated Discharge: 24 - 48 hours
Subjective/Interval History
-
Date of Service: June 17, 2024
Objective Data
-
Vital Signs:
Vital Signs
Temp Pulse Resp BP Pulse Ox
97.1 F 85 16 106/52 95
06/17/24 07:40 06/17/24 07:47 06/17/24 07:47 06/17/24 09:10 06/17/24 07:47
I&O
06/16/24 06/17/24 06/18/24
06:59 06:59 06:59
Intake Total 480 / 480 960 / 960
Output Total 2225 / 2225 2600 / 2600
Balance -1745 / -1745 -1640 / -1640
Physical Exam
-
General: Well Developed, Well Nourished, Comfortable, Respiratory Distress, Conversant and Appears Chronically Ill
HEENT: Normocephalic and Oxygen (4L NC)
Respiratory: Non Labored Respirations and Decreased Breath Sounds; Negative Accessory Resp Muscle Use
Cardiac: Regular Rhythm and S1/S2
GI: Soft, Nontender and Nondistended
Musculoskeletal: No Clubbing, No Cyanosis, Edema, Right Lower Extrem and Edema, Left Lower Extrem
Neuro: Awake and Alert
Psych: Calm and Intact Judgement/Insight
[2024-06-17] MEDS: XANAX 0.25 MG PO (17:03)
[2024-06-17 19:39] VITALS: BP 120/69
[2024-06-17] MEDS: REFRESH EYE DROPS (PF) 1 DROPS RIGHT EYE (21:00)
[2024-06-18 06:00] VITALS: BMI 19.3
[2024-06-18] MEDS: LASIX 40 MG PO (07:50)
[2024-06-18] MEDS: SANTYL OINTMENT 1 APPLIC TOPICAL (07:51)
[2024-06-18 07:55] VITALS: BP 103/56
[2024-06-18] MEDS: SPIRIVA RESPIMAT 2.5 MCG 2 PUFF INH (08:29)
[2024-06-18] MEDS: MIRALAX 17 GRAMS PO (12:06)
[2024-06-18] MEDS: SENOKOT-S 1 TABLET PO (12:06)
--- NOTE | 2024-06-18 13:38 | W.PN.HOSP.TC ---
Today's Communication/Plan
-
home hospice tomorrow
Assessment / Plan
Assessment / Plan
Physical Exam
resting comfortably in bed
Scleral anicteric
Moist mucous membranes
No JVD
CTA bilateral
Normal S1-S2 no murmurs
Soft nontender nondistended bowel sounds active
No peripheral pitting edema
Moves extremities spontaneously
Assessment and Plan
Acute on chronic HFrEF, endstage, NYHA IV, EF 20-25%
-Continue lasix for comfort care
-For hospice care at home
-Mcmanus catheter in place for end of life care and urinary retention
Anticipated Discharge: Within 24 hours
Subjective/Interval History
-
Date of Service: June 18, 2024
seen and examined. no new complaints. no acute overnight events
Objective Data
-
Vital Signs:
Vital Signs
Temp Pulse Resp BP Pulse Ox
97.8 F 80 16 103/56 98
06/17/24 19:39 06/18/24 08:32 06/18/24 08:32 06/18/24 07:55 06/18/24 07:55
I&O
06/17/24 06/18/24 06/19/24
06:59 06:59 06:59
Intake Total 960 / 960 720 / 720
Output Total 2600 / 2600 525 / 525
Balance -1640 / -1640 195 / 195
--- NOTE | 2024-06-18 14:17 | CM ---
Chart reviewed.
Pt to d/c home w/ [facility] at d/c
[facility] DNR signed, placed in chart
Ambulance transport arranged
IMM on chart
Plan: Home w/ [facility]
[2024-06-18 20:13] VITALS: BP 112/60
[2024-06-18] MEDS: REFRESH EYE DROPS (PF) 1 DROPS RIGHT EYE (22:11)
[2024-06-19] MEDS: SPIRIVA RESPIMAT 2.5 MCG 2 PUFF INH (07:20)
[2024-06-19 07:45] VITALS: BP 115/56
[2024-06-19] MEDS: LASIX 40 MG PO (07:59)
[2024-06-19] MEDS: SANTYL OINTMENT 1 APPLIC TOPICAL (07:59)
[2024-06-19] MEDS: SENOKOT-S 1 TABLET PO (08:07)
== END 2024-06-19 10:50 | disposition hospice, home (50) | DRG 292 ==
LOC: 2 NORTH 18:17
PROVIDERS: Clinical Nurse Specialist Family Health; Internal Medicine; Radiology Diagnostic Radiology; Student in an Organized Health Care Education/Training Program; ADMITTING PHYSICIAN Hospitalist; ATTENDING PHYSICIAN Hospitalist; CONSULT PHYSICIAN Internal Medicine Cardiovascular Disease; EMERGENCY PHYSICIAN Emergency Medicine; FAMILY PHYSICIAN Internal Medicine
PROC: 0W9B3ZZ Drainage of Left Pleural Cavity, Percutaneous Approach (ICD-10-PCS; 2024-06-13)
DX: I50.23 Acute on chronic systolic (congestive) heart failure (principal); I47.20 Ventricular tachycardia, unspecified; L97.429 Non-pressure chronic ulcer of left heel and midfoot with unspecified severity; N17.9 Acute kidney failure, unspecified; R53.1 Weakness; E87.5 Hyperkalemia; E11.40 Type 2 diabetes mellitus with diabetic neuropathy, unspecified; Z51.5 Encounter for palliative care; E11.51 Type 2 diabetes mellitus with diabetic peripheral angiopathy without gangrene; J44.9 Chronic obstructive pulmonary disease, unspecified; E78.00 Pure hypercholesterolemia, unspecified; I25.10 Atherosclerotic heart disease of native coronary artery without angina pectoris; R68.0 Hypothermia, not associated with low environmental temperature; R09.02 Hypoxemia; I49.3 Ventricular premature depolarization; E11.22 Type 2 diabetes mellitus with diabetic chronic kidney disease; N18.32 Chronic kidney disease, stage 3b; L89.152 Pressure ulcer of sacral region, stage 2; I95.9 Hypotension, unspecified; K21.9 Gastro-esophageal reflux disease without esophagitis; D53.9 Nutritional anemia, unspecified; K59.00 Constipation, unspecified; F10.11 Alcohol abuse, in remission; N40.0 Benign prostatic hyperplasia without lower urinary tract symptoms; N28.1 Cyst of kidney, acquired; D18.03 Hemangioma of intra-abdominal structures; I70.244 Atherosclerosis of native arteries of left leg with ulceration of heel and midfoot; R06.89 Other abnormalities of breathing; R55 Syncope and collapse; I25.5 Ischemic cardiomyopathy; R33.9 Retention of urine, unspecified; Z66 Do not resuscitate; Z87.891 Personal history of nicotine dependence; Z86.73 Personal history of transient ischemic attack (TIA), and cerebral infarction without residual deficits; Z95.1 Presence of aortocoronary bypass graft; Z95.810 Presence of automatic (implantable) cardiac defibrillator; Z85.820 Personal history of malignant melanoma of skin; Z88.0 Allergy status to penicillin; Z79.82 Long term (current) use of aspirin; Z79.84 Long term (current) use of oral hypoglycemic drugs; Z11.52 Encounter for screening for COVID-19; Z74.01 Bed confinement status
CPT/HCPCS: 88305; 32555; 71045; 71046; 80048; 80053; 82150; 82945; 82962; 83615; 83735; 83880; 83986; 84100; 84157; 84443; 84478; 84484; 85025; 87015; 87070; 87102; 87116; 87205; 87206; 87502; 87811; 88112; 88341; 88342; 89051; 93005; 94640; 96374; 96375; 97163; 97166; 97530; 99285